=== PATIENT | male | born 1940 | race Caucasian/White ===

== ENCOUNTER → 2016-06-20 | Outpatient (CLI) | payer OTHER ==
[~2016-06-20] MED LIST: ALBINS/ INH; ALBUAER INH; ASPCH81X PO; ATOR-24 PO; ATVUNK; EPP3/2 IM; FISHOIL PO; FLUT1INH INH; HYDC25 PO; IRON PO; LISI-461 PO; LORA-741 PO; PRAV20TA PO; PRLSR20 PO; SERT1TAB71 PO
--- NOTE | 2016-06-20 10:54 | DIAGNOSTIC IMAGING REPORT ---
CHEST 2 VIEWS ROUTINE CLINICAL HISTORY: SOB//WHEEZE dyspnea COMPARISON STUDY: 02/16/2014 FINDINGS: The bones soft tissues and hemidiaphragms are normal. The cardiomediastinal silhouette is normal. The lungs are clear. The pulmonary vasculature is normal. IMPRESSION: Negative chest. Electronically signed by: Kulwinder Schmid M.D. 06/20/2016 10:53 AM Dictated Date/Time: 06/20/2016 10:52 AM
== END | disposition home or self-care (01) ==
LOC: C.RADPV 10:39
PROVIDERS: ATTEND Nurse Practitioner
DX: R06.02 Shortness of breath (principal); R06.2 Wheezing

== ENCOUNTER → 2016-08-21 | Day surgery (SDC) | payer OTHER ==
[2016-08-14 11:52] VITALS: Ht 182.9 cm; Wt 84.1 kg
[~2016-08-21] VITALS: Ht 182.9 cm; Wt 84.1 kg
[~2016-08-21] MED LIST changes: -ATVUNK; -EPP3/2 IM; +LIDOCAINE HCL 2% 2 ML VIAL (20MG/ML) ONE; +MIDAZOLAM HCL 1 MG/ML 2ML VIAL ONE; +ONDANSETRON INJ 2 MG/ML 2 ML VIAL ONE; -PRAV20TA PO; +PROPOFOL IV EMULSION 10 MG/ML 20 ML VIAL IV ONE; -SERT1TAB71 PO; +SODIUM CHLORIDE 0.9% 500ML 500 ML IV ONE
--- NOTE | 2016-08-21 10:15 | Endo History and Physical ---
History & Physical Date of Service: Aug 21, 2016. Chief Complaint: reflux,abdominal distention Referring Physician: Dr. Tucker History of Present Illness 75 yo CM who presents for EGD secondary to GERD and abdominal distention. Past Surgical History Hx Cardiac Surgery: No Hx Internal Defibrillator: No Hx Pacemaker: No Hx Abdominal Surgery: Yes (BILATERAL INGUINAL HERNIA REPAIR, UMBILICAL HERNIA REPAIR) Hx of Implantable Prosthesis: No Hx Post-Op Nausea and Vomiting: No Hx Cancer Surgery: No Hx Thoracic Surgery: No Hx Orthopedic: Yes (LT RCR, RT KNEE SURGERY) Hx Urinary Tract Surgery: No Family History Colon CA Social History Smoking Status: Former Smoker Hx Substance Use: Yes (MARIJUANA 1X/MONTH) Hx Alcohol Use: Yes (1 DRINK/DAY) Allergies Coded Allergies: NO KNOWN DRUG ALLERGIES (Verified Allergy, Unknown, ., 08/14/16) Uncoded Allergies: "OINTMENT ON ANESTHESIA TUBE" (Allergy, Unknown, SWELLING, 08/14/16) Current Medications Reported Home Medications Medications Dose Route/Sig Max Daily Dose Days Date Category Ativan (Lorazepam) 0.5 Mg Tab 0.5 Mg PO TID PRN 08/14/16 Reported Proventil 0.083% 2.5MG/3ML (Albuterol Sulf) 2.5 Mg/3 Ml Nebu 2.5 Mg INH QID PRN 08/14/16 Reported Proventil Hfa (Albuterol Sulfate) 108 Mcg/Act Aer 1 Puff INH Q4H PRN 08/14/16 Reported Breo Ellipta (Fluticasone Furoate-Vilanterol) 1 Inh Inh 1 Puff INH QAM 08/14/16 Reported [Iron] 65 Mg PO QAM 08/14/16 Reported Lipitor (Atorvastatin Calcium) 40 Mg Tab 40 Mg PO QAM 08/14/16 Reported [place]-3 (Fish Oil) Oil 1 Cap PO QAM 01/16/12 Reported Aspirin Chewable (Aspirin) 81 Mg Chew 81 Mg PO QAM 01/16/12 Reported Prilosec (Omeprazole) 20 Mg Capcr 20 Mg PO QAM 07/23/10 Reported Hctz * (Hydrochlorothiazide) 25 Mg Tab 25 Mg PO QAM 12/26/06 Reported Zestril (Lisinopril) 10 Mg Tab 10 Mg PO QAM 12/26/06 Reported Vital Signs Weight (Kilograms): 84.09 Height (Feet): 6 Height (Inches): 0 Date Time Temp Pulse Resp B/P Pulse Ox O2 Delivery O2 Flow Rate FiO2 08/21/16 09:45 36.5 85 18 148/85 99 Room Air Physical Exam General Appearance: WD/WN, no apparent distress Respiratory/Chest: Auscultation: breath sounds normal Cardiovascular: Heart Auscultation: RRR Abdomen: Bowel Sounds: normal Inspection & Palpation: soft, non-distended, no tenderness, guarding & rebound Assessment and Plan Assessment: 75 yo CM who presents for EGD secondary to GERD and abdominal distention. Plan: Proceed with EGD
--- NOTE | 2016-08-21 10:24 | Discharge Instructions ---
Endoscopy Patient Instructions Date / Procedure(s) Performed Aug 21, 2016. EGD Allergy Information Coded Allergies: NO KNOWN DRUG ALLERGIES (Verified Allergy, Unknown, ., 08/14/16) Uncoded Allergies: "OINTMENT ON ANESTHESIA TUBE" (Allergy, Unknown, SWELLING, 08/14/16) Discharge Date / Findings Aug 21, 2016. Gastritis s/p biopsies Hiatal hernia Brushings for Angeli esophagitis Medication Instructions Stopped Medication(s): took asa yesterday OK to resume all medications today as prescribed Reported Home Medications Medications Dose Route/Sig Max Daily Dose Days Date Category Ativan (Lorazepam) 0.5 Mg Tab 0.5 Mg PO TID PRN 08/14/16 Reported Proventil 0.083% 2.5MG/3ML (Albuterol Sulf) 2.5 Mg/3 Ml Nebu 2.5 Mg INH QID PRN 08/14/16 Reported Proventil Hfa (Albuterol Sulfate) 108 Mcg/Act Aer 1 Puff INH Q4H PRN 08/14/16 Reported Breo Ellipta (Fluticasone Furoate-Vilanterol) 1 Inh Inh 1 Puff INH QAM 08/14/16 Reported [Iron] 65 Mg PO QAM 08/14/16 Reported Lipitor (Atorvastatin Calcium) 40 Mg Tab 40 Mg PO QAM 08/14/16 Reported [place]-3 (Fish Oil) Oil 1 Cap PO QAM 01/16/12 Reported Aspirin Chewable (Aspirin) 81 Mg Chew 81 Mg PO QAM 01/16/12 Reported Prilosec (Omeprazole) 20 Mg Capcr 20 Mg PO QAM 07/23/10 Reported Hctz * (Hydrochlorothiazide) 25 Mg Tab 25 Mg PO QAM 12/26/06 Reported Zestril (Lisinopril) 10 Mg Tab 10 Mg PO QAM 12/26/06 Reported Provider Instructions Activity Restrictions - No exercising or heavy lifting for 24 hours. - Do not drink alcohol the day of the procedure. - Do not drive a car or operate machinery until the day after the procedure. - Do not make any important decisions or sign important papers in 24 hours after the procedure. Following Day: - Return to full activity which may include returning to work/school. Diet Start your diet with liquids and light foods (jello, soup, juice, toast). Then eat your usual diet if not nauseated. Treatment For Common After Affects For mild abdominal pain, bloating, or excessive gas: - Rest - Eat lightly - Lie on right side Follow-Up Information Follow-up with Dr. Tucker as scheduled Anesthesia Information What You Should Know You have had a procedure that required some medicine to reduce anxiety and discomfort. This treatment is called moderate sedation. After receiving the treatment, you may be sleepy, but you will be able to breathe on your own. The effects of the treatment may last for several hours. Follow these instructions along with Activity/Diet recommendations noted above: * Do NOT do anything where dizziness or clumsiness would be dangerous. * Rest quietly at home today, then you can be up and about tomorrow. * Have a responsible person stay with you the rest of today. * You may have had an I.V. today. If so, you may take the dressing off later today. Recommendations Call your doctor if: * Trouble breathing * Continuous vomiting for more than 24 hours * Temperature above 101 degrees * Severe abdominal pain or bloating * Pain not relieved by pain medicine ordered * There is increased drainage or redness from any incision * A large amount of rectal bleeding greater than 2-3 tablespoons. (If you had a polyp/s removed or have hemorrhoids, a small amount of blood - from the rectum is to be expected.) * You have any unanswered questions or concerns. IN THE EVENT OF A SERIOUS EMERGENCY, GO TO THE NEAREST EMERGENCY ROOM Your discharge instructions were prepared by provider Shaun Munoz. Patient Instructions Signature Page Lul Dalal Patient (or Guardian) Signature/Date: I have read and understand the instructions given to me by my caregivers. Caregiver/RN/Doctor Signature/Date: The above-named patient and/or guardian has received patient instructions on this date. + Original Patient Signature Page (only) stays with chart. Please make copy for patient.
--- NOTE | 2016-08-21 10:29 | GI REPORT ---
Procedure Date: 08/21/2016 10:01 AM Procedure: Upper GI endoscopy Indications: Gastro-esophageal reflux disease Medicines: Monitored Anesthesia Care Complications: No immediate complications. Estimated Blood Loss: Estimated blood loss: none. Procedure: Pre-Anesthesia Assessment: - Prior to the procedure, a History and Physical was performed, and patient medications and allergies were reviewed. The patient's tolerance of previous anesthesia was also reviewed. The risks and benefits of the procedure and the sedation options and risks were discussed with the patient. All questions were answered, and informed consent was obtained. Prior Anticoagulants: The patient has taken aspirin, last dose was 1 day prior to procedure. ASA Grade Assessment: II - A patient with mild systemic disease. After reviewing the risks and benefits, the patient was deemed in satisfactory condition to undergo the procedure. After obtaining informed consent, the endoscope was passed under direct vision. Throughout the procedure, the patient's blood pressure, pulse, and oxygen saturations were monitored continuously. The Scope was introduced through the mouth, and advanced to the second part of duodenum. The upper GI endoscopy was accomplished without difficulty. The patient tolerated the procedure well. Findings: A single 3 mm plaque was found in the lower third of the esophagus. Cells for cytology were obtained by brushing. Localized mild inflammation characterized by erythema was found in the gastric antrum. Biopsies were taken with a cold forceps for histology. A small hiatus hernia was present. Impression: - A single plaque in the lower third of the esophagus. Cells for cytology obtained. - Gastritis. Biopsied. - Small hiatus hernia. Recommendation: - Resume previous diet. - Continue present medications. - Await pathology results. - Return to GI clinic as previously scheduled. Shaun Munoz DO 08/21/2016 10:27:54 AM This report has been signed electronically. Note Initiated On: 08/21/2016 10:01 AM I attest to the content of the Intraoperative Record and orders documented therein, exceptions below
--- NOTE | 2016-08-21 11:06 | Anesthesiology Progress Note ---
Anesthesia Post Op Note Date & Time Aug 21, 2016 at 11:05 Vital Signs Pain Intensity: 1 Vital Signs Past 12 Hours Date Time Temp Pulse Resp B/P Pulse Ox O2 Delivery O2 Flow Rate FiO2 08/21/16 11:02 70 18 110/83 94 Room Air 08/21/16 10:28 70 18 99/67 96 Room Air 08/21/16 09:45 36.5 85 18 148/85 99 Room Air Notes Mental Status: alert / awake / arousable, participated in evaluation Pt Amnestic to Procedure: Yes Nausea / Vomiting: adequately controlled Pain: adequately controlled Airway Patency, RR, SpO2: stable & adequate BP & HR: stable & adequate Hydration State: stable & adequate Anesthetic Complications: no major complications apparent
[2016-08-21 11:15] VITALS: BP 112/80; PULSE 75; O2SAT 94
== END | disposition home or self-care (01) ==
LOC: C.GI 09:19
PROVIDERS: ATTEND Internal Medicine
DX: K21.9 Gastro-esophageal reflux disease without esophagitis (principal); K22.9 Disease of esophagus, unspecified; K29.70 Gastritis, unspecified, without bleeding; K44.9 Diaphragmatic hernia without obstruction or gangrene; J44.9 Chronic obstructive pulmonary disease, unspecified; I10 Essential (primary) hypertension; F12.90 Cannabis use, unspecified, uncomplicated; Z79.899 Other long term (current) drug therapy; Z68.25 Body mass index [BMI] 25.0-25.9, adult; Z98.890 Other specified postprocedural states; Z87.891 Personal history of nicotine dependence; Z80.0 Family history of malignant neoplasm of digestive organs

== ENCOUNTER → 2016-08-23 | Outpatient (CLI) | payer OTHER ==
[~2016-08-23] MED LIST changes: -LIDOCAINE HCL 2% 2 ML VIAL (20MG/ML) ONE; -MIDAZOLAM HCL 1 MG/ML 2ML VIAL ONE; -ONDANSETRON INJ 2 MG/ML 2 ML VIAL ONE; -PROPOFOL IV EMULSION 10 MG/ML 20 ML VIAL IV ONE; -SODIUM CHLORIDE 0.9% 500ML 500 ML IV ONE
[2016-09-02 12:48] LABS: ASPERGILLUS FUMIGATUS NEGATIVE (NEGATIVE); M. FAENI (S. RECTIVIRGULA) NEGATIVE (NEGATIVE); PIGEON SERUM NEGATIVE (NEGATIVE); SACCHAROMONOSPORA VIRIDIS AB NEGATIVE (NEGATIVE); THERMOACTINOMYCES CANDIDUS NEGATIVE (NEGATIVE); THERMOACTINOMYCES VULGARIS NEGATIVE (NEGATIVE)
== END | disposition home or self-care (01) ==
LOC: C.LAB1850 14:16
PROVIDERS: ATTEND Internal Medicine Pulmonary Disease
DX: J45.909 Unspecified asthma, uncomplicated (principal)

== ENCOUNTER → 2016-09-18 | Outpatient (CLI) | payer OTHER ==
--- NOTE | 2016-09-18 13:52 | DIAGNOSTIC IMAGING REPORT ---
RIGHT HAND MIN 3 VIEWS ROUTINE CLINICAL HISTORY: HAND PAIN R Right pain COMPARISON: None DISCUSSION: Moderate to significant degenerative change first carpometacarpal joint as well as radial ulnar articulation. Erosive changes involving the distal aspects of the second and third metacarpals. No significant periarticular osteopenia. There is no evidence for soft tissue swelling. 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 09/18/2016 1:51 PM Dictated Date/Time: 09/18/2016 1:50 PM
[2016-09-18 17:42] LABS: BASO % 0.5 %; BASO ABS # 0.04 K/uL (0-0.2); COMPLETE YES; EOS % 1.6 %; HEMATOCRIT 41.1 % (42-52); IG% 0.1 %; LYMPH ABS # 1.43 K/uL (1.2-3.4); MEAN CELL VOLUME 92.4 fL (80-100); MEAN CORPUSCULAR HEMOGLOBIN 31.7 pg (25-34); MEAN CORPUSCULAR HGB CONC 34.3 g/dl (32-36); MEAN PLATELET VOLUME 10.8 fL (7.4-10.4); MONO % 10.2 %; NEUT % 68.6 %; PLATELET COUNT 202 K/uL (130-400); RED BLOOD COUNT 4.45 M/uL (4.7-6.1); WHITE BLOOD COUNT 7.52 K/uL (4.8-10.8)
[2016-09-18 17:46] LABS: ALKALINE PHOSPHATASE 75 U/L (45-117); ALT/SGPT 17 U/L (12-78); AST/SGOT 16 U/L (15-37); BLOOD UREA NITROGEN 16 mg/dl (7-18); BUN/CREATININE RATIO 23.1 (10-20); CALCIUM 8.6 mg/dl (8.5-10.1); CARBON DIOXIDE 29 mmol/L (21-32); CHLORIDE 105 mmol/L (98-107); GLUCOSE 89 mg/dl (70-99); POTASSIUM 3.3 mmol/L (3.5-5.1); SODIUM 141 mmol/L (136-145); URIC ACID 5.6 mg/dl (2.6-7.2)
== END | disposition home or self-care (01) ==
LOC: C.RADPV 13:24
PROVIDERS: ATTEND Family Medicine
DX: M79.641 Pain in right hand (principal)

== ENCOUNTER → 2016-10-25 | Outpatient (CLI) | payer OTHER ==
[2016-10-25 13:08] LABS: CHOLESTEROL/HDL RATIO 1.9
== END | disposition home or self-care (01) ==
LOC: C.LABPVFM 08:40
PROVIDERS: ATTEND Family Medicine
DX: I10 Essential (primary) hypertension (principal); E78.00 Pure hypercholesterolemia, unspecified; J44.9 Chronic obstructive pulmonary disease, unspecified; F41.8 Other specified anxiety disorders; K21.9 Gastro-esophageal reflux disease without esophagitis; N52.9 Male erectile dysfunction, unspecified

== ENCOUNTER → 2017-05-05 | Outpatient (CLI) | payer OTHER ==
[2017-05-05 13:05] LABS: ALBUMIN 3.3 gm/dl (3.4-5.0); ALT/SGPT 19 U/L (12-78); BLOOD UREA NITROGEN 24 mg/dl (7-18); CALCIUM 8.7 mg/dl (8.5-10.1); CARBON DIOXIDE 31 mmol/L (21-32); CHOLESTEROL 160 mg/dl (0-200); CREATININE 0.68 mg/dl (0.60-1.40); GLUCOSE 86 mg/dl (70-99); POTASSIUM 3.4 mmol/L (3.5-5.1); SODIUM 140 mmol/L (136-145)
[2017-05-05 13:09] LABS: ALKALINE PHOSPHATASE 65 U/L (45-117); AST/SGOT 15 U/L (15-37); LDL CHOLESTEROL CALCULATED 61 mg/dl
== END | disposition home or self-care (01) ==
LOC: C.LABPVFM 08:25
PROVIDERS: ATTEND Family Medicine
DX: I10 Essential (primary) hypertension (principal); E78.00 Pure hypercholesterolemia, unspecified; J44.9 Chronic obstructive pulmonary disease, unspecified; F41.8 Other specified anxiety disorders; K21.9 Gastro-esophageal reflux disease without esophagitis; E87.6 Hypokalemia

== ENCOUNTER → 2017-11-14 | Outpatient (CLI) | payer OTHER ==
--- NOTE | 2017-11-14 08:55 | DIAGNOSTIC IMAGING REPORT ---
ULTRASOUND EXAM AAA SCREEN CLINICAL HISTORY: 76 years-old Male presenting with Z13.6 Screening for AAA (abdominal aortic aneurysm)[id number]. TECHNIQUE: Real-time grayscale and color and spectral Doppler ultrasound imaging of the abdominal aorta and iliac arteries was performed. COMPARISON: CT from 03/15/2010. FINDINGS: Evaluation limited by bowel gas. Proximal aorta: Patent. Transverse dimension 2.6 x 2.9 cm. Mid aorta: Patent. Transverse dimension 2.5 x 2.6 cm. Distal aorta: Patent. Transverse dimension 2.2 x 2.6 cm. Right iliac artery: Patent. Transverse dimension 1.5 x 1.7 cm. Left iliac artery: Patent. Transverse dimension 1.6 x 2.0 cm. IMPRESSION: 1. No evidence of abdominal aortic aneurysm. Electronically signed by: Bonilla Vazquez M.D. 11/14/2017 8:54 AM Dictated Date/Time: 11/14/2017 8:53 AM
== END | disposition home or self-care (01) ==
LOC: C.ULTR 08:21
PROVIDERS: ATTEND Family Medicine
DX: Z13.6 Encounter for screening for cardiovascular disorders (principal)

== ENCOUNTER 2023-12-25 16:39 | Inpatient (IN) ==
--- NOTE | 2023-12-25 16:47 | ED Triage Note ---
Date of Service December 25, 2023 Provider in Triage Author: Everette Pulliam History of Present Illness This patient was briefly evaluated while in triage. An abbreviated physical exam was performed. This patient is a 83-year-old Male who presents to the ED for evaluation fatigue, joint pain over the last few days acute fever and vomiting today - T102 concern for Lyme, hx of anaplasmosis 2 years ago Physical Exam GENERAL: mild distress, tachycardic and febrile, but nontoxic CARDIOVASCULAR: RRR RESPIRATORY: CTA ABDOMEN: BS x 4. Nontender to palpation. Initial orders for labs and / or imaging were placed and patient was placed in the waiting area until a bed is available. Please see further documentation for the full ED course.
[2023-12-25] MEDS: KETOROLAC TROMETHAMINE 15 MG/ML VIAL IV STA (16:54)
[2023-12-25] MEDS: ONDANSETRON INJ 2 MG/ML 2 ML VIAL IV STA ×2 (16:54→18:22)
[2023-12-25] MEDS: SODIUM CHLORIDE 0.9% 1,000 ML IV SCH ×2 (16:55→23:05)
[2023-12-25 17:12] LABS: Appearance Urine Clear (Clear); Bilirubin Urine Negative (Negative); Blood Urine Negative (Negative); Color Urine Yellow; Glucose Urine UA Negative (Negative); Ketones Urine Negative (Negative); Leukocyte Esterase Urine Negative (Negative); Nitrite Urine Negative (Negative); Protein Urine Negative (Negative); Specific Gravity Urine 1.012 (1.000-1.030); Urobilinogen Urine Negative (Negative); pH Urine 8.5 (4.5-7.5)
[2023-12-25 17:18] LABS: Basophils # (auto) 0.04 K/uL (0.00-0.20); Basophils % (auto) 0.4 %; Eosinophils # (auto) 0.02 K/uL (0.00-0.50); Eosinophils % (auto) 0.2 %; Hematocrit (blood only) 40.8 % (42.0-52.0); Hemoglobin 13.8 g/dl (14.0-18.0); Immature Granulocytes # (auto) 0.04 K/uL (0.01-0.20); Immature Granulocytes % (auto) 0.4 %; Lymphocytes # (auto) 0.71 K/uL (1.20-3.40); Lymphocytes % (auto) 6.4 %; Mean Corpuscular Hemoglobin 31.7 pg (25.0-34.0); Mean Corpuscular Hgb Conc 33.8 g/dL (32.0-36.0); Mean Corpuscular Volume 93.6 fL (80.0-100.0); Mean Platelet Volume 10.1 fL (9.4-12.4); Monocytes # (auto) 0.38 K/uL (0.11-0.59); Monocytes % (auto) 3.4 %; Neutrophils # (auto) 9.96 K/uL (1.40-6.50); Neutrophils % (auto) 89.2 %; Platelet Count 195 K/uL (130-400); RDW Coefficient of Variation 12.8 % (11.5-14.5); RDW Standard Deviation 43.7 fL (36.4-46.3); Red Blood Count 4.36 M/uL (4.70-6.10); White Blood Count 11.15 K/ul (4.8-10.8)
--- NOTE | 2023-12-25 17:31 | Emergency Department Note ---
Impression & Plan Pneumonia ADMIT ED Provider Note HPI: History obtained from patient. The patient is a 83-year-old gentleman who presents the emergency department with a chief complaint of fever, nausea and vomiting. Patient states that he began to have some generalized weakness as well as issues with nausea and vomiting and mostly dry heaves that been ongoing since about 1 PM. Patient states yesterday he also did feel somewhat weak but did not have any GI symptoms. Patient denies any abdominal pain, on arrival here to the ED the patient is noted to be febrile at 38.2, he is tachycardic at 112 and hypertensive at 170/85. He states that he has had a dry cough recently. Patient saturating well on room air on arrival. On my initial assessment he is alert and oriented x 3, he does not have any focal deficits. ROS: - Per HPI Differential Diagnosis: Viral upper respiratory infection to include COVID-19, influenza A, pneumonia, sepsis, urinary tract infection, small bowel obstruction, acute cholecystitis, acute appendicitis, perforated viscus, diverticulitis flare, amongst other potential pathologies. *Outpatient medications and allergy history reviewed. PE: General: Alert HEENT: Normocephalic, trachea midline Eyes: Extraocular eye movement is intact, no scleral erythema Pulmonary: Clear to auscultation bilaterally, no wheezing Cardio: Tachycardic rate with regular rhythm GI: Abdomen is soft to palpation : No suprapubic tenderness MSK: No evidence of trauma or malformation of the extremities, no edema Skin: No evidence of rash Neuro: Alert, no focal deficits Psychiatric: Cooperative INDEPENDENT INTERPRETATIONS: monitoring analyst: (As interpreted by myself): - An order was placed for continuous cardiac monitoring - Patient was noted to be in sinus rhythm with a rate of 108 EKG: (As interpreted by myself): Rate: 115 Rhythm: Junctional rhythm Intervals: QTc 644 ms, otherwise within normal limits ST changes: No ST elevation Time: 1706 Chest x-ray: (As interpreted by myself): Right lower lobe pneumonia Interventions provided in ED: -IV cefepime, IV azithromycin, IV fluid bolus Medical Decision Making: IV was established and lab work obtained, patient was placed on teletypesetter monitor. Lab work shows a leukocytosis of 11.15, hemoglobin is stable at 13.8, platelet count is normal, CMP shows no critical abnormalities, procalcitonin is low, urinalysis does not show infection, viral panel testing is negative. CT imaging of the abdomen pelvis was obtained that shows evidence of right lower lobe pneumonia, there is no evidence of any small bowel obstruction, otherwise no acute surgical process is noted within the abdomen and pelvis. There is a left lower quadrant mass possibly consistent with a lipoma or liposarcoma noted and recommendation is made by the interpreting radiologist for repeat imaging within 6 months or so of which the patient was informed. Patient did have hypoxia here in the ED to 88%, he responded well to nasal cannula oxygen. Given the patient's fever and hypoxia, I do feel he required admission. Blood cultures were drawn and the patient was treated with IV cefepime and IV azithromycin. Case was discussed with the on-call admitting hospitalist for [facility], Dr. Justice, the patient was placed for admission in stable condition. Consultants/Discussions held with other healthcare providers: -Hospitalist, Dr. Justice Disposition discussion held by myself with: -Patient Critical care time: 45 minutes -Stabilization patient with hypoxia to 88% on room air requiring supplemental oxygen for correction, time spent at the bedside, initiation of fluids and broad-spectrum antibiotics over concern for sepsis. Interpretation of diagnostic studies, discussion with other physicians and arrangement of admission. Diagnosis: 1. Sepsis secondary to pneumonia, acute, with hypoxia 2. Fever, acute 3. Leukocytosis, acute 4. Nausea and vomiting, acute 5. Nonspecific mass within the left lower quadrant of the abdomen, acute Disposition: Admission Kulwinder Bloom DO Emergency Medicine Past Med/Surg History Problem List (Updated 12/25/23 @ 23:10 by Kulwinder Bloom DO) Pneumonia (Acute) Pneumonia Marijuana smoker Chronic cough Upper airway cough syndrome Allergic rhinitis with postnasal drip Ex-smoker Asthma-COPD overlap syndrome Encounter for pre-operative examination Hypertension (Chronic) GERD (gastroesophageal reflux disease) (Chronic) Allergic reaction to bee sting (Acute) Hyperlipidemia COPD (chronic obstructive pulmonary disease) Hypoglycemia Lower resp. tract infection Retroperitoneal mass Advanced COPD Asthma Depression with anxiety Hypertension Medical History Anxiety COPD (chronic obstructive pulmonary disease) GERD (gastroesophageal reflux disease) History of colon polyps HTN (hypertension) Hypercholesterolemia Surgical History H/O colonoscopy (~2017) History of bilateral inguinal hernia repair History of knee surgery Rt History of rotator cuff surgery Rt S/P excision of lipoma S/P repair of ventral hernia (07/30/10) Laparoscopic ventral hernia repair Dr. Sierra Family History Mother Family history of CABG Dissecting aortic aneurysm (any part), thoracic Heart disease Cardiac disorder Hypertension Father Prostate cancer Hypertension Stroke Aunt Breast cancer Uncle Colorectal cancer Uncle Myocardial infarction Daughter Colorectal cancer Other No family history of adverse response to anesthesia Denies family history of Ovarian cancer Social History Smoking Status: Never smoker Tobacco Type: Cigarettes packs per day: 1; Second Hand Exposure: No; Do You Dip or Chew Tobacco: No; Hx Alcohol Use: Yes Alcohol type: wine Alcohol Intake Frequency: 4 or More x per/Week Hx Substance Use: Yes Last Used Substance Other:: 6 mo ago Substance Use Type Other:: 6 MON AGO Preferred Language: Nepali Communication Ability: Effective Social Media Community Manager Required: No Beliefs That Will Affect Care: None marital status: Current Living Situation: Spouse current occupational status: retired How many Children do You have: 3 Feels Safe at Home: Yes Diet: vegan caffeine: Yes (coffee ) during the past year weight has: remained stable Dental Care, Regularly: Yes Physical Activity Frequency: Daily Seatbelt Use: always Sunscreen Use: No Assistive Devices: Glasses Allergies Allergies Allergy/AdvReac Type Severity Reaction Status Date / Time venom-honey bee Allergy Severe Swelling Verified 12/25/23 18:16 of Lip/Tongue/Throat methocarbamol Allergy Unknown Unknown Verified 12/25/23 18:16 Home Meds Home Medications Medication Instructions Recorded Confirmed albuterol sulfate 90 mcg/actuation 2 puff inhalation Q6H PRN Wheezing 07/29/18 12/25/23 aerosol inhaler (Ventolin HFA) famotidine 20 mg tablet (Pepcid) 20 mg PO BID 05/24/21 12/25/23 Vegan Vitamin 1 dose PO QAM 11/22/21 12/25/23 lisinopril 10 mg tablet 10 mg PO QAM 11/22/21 12/25/23 lorazepam 0.5 mg tablet (Ativan) 0.5 mg PO DAILY PRN Anxiety 11/22/21 12/25/23 potassium chloride 10 mEq 10 meq PO QAM 11/22/21 12/25/23 tablet,extended release hydrochlorothiazide 12.5 mg capsule 12.5 mg PO QAM 12/25/23 12/25/23 krill oil 500 mg capsule 500 mg PO QAM 12/25/23 12/25/23 rosuvastatin 10 mg tablet 10 mg PO QAM 12/25/23 12/25/23 Results & Data (ED) Vital Signs Vital Signs - 24 hr 12/25/23 16:45 12/25/23 17:52 12/25/23 19:29 Temperature 38.2 C H Temperature Source Oral Pulse Rate 112 H 104 H 105 H Pulse Rate [Apical] Respiratory Rate 20 Respiratory Effort / Characteristics Non-Labored Spontaneous Respiratory Depth Normal Respiratory Pattern Regular Blood Pressure 170/85 H Blood Pressure [Right Arm] Blood Pressure Mean 113 Blood Pressure Mean [Right Arm] Pulse Oximetry 92 88 L Oxygen Delivery Method Room Air Room Air Oxygen Flow Rate Sepsis Recent Fever Within 48 Hours Yes Sepsis New/Unexplained Change in Mental Status No Sepsis Action Taken by Nursing Adv Provider Notified 12/25/23 19:29 12/25/23 19:56 Temperature Temperature Source Pulse Rate Pulse Rate [Apical] 100 H Respiratory Rate 30 H Respiratory Effort / Characteristics Non-Labored Spontaneous Respiratory Depth Normal Respiratory Pattern Regular Blood Pressure Blood Pressure [Right Arm] 131/79 Blood Pressure Mean Blood Pressure Mean [Right Arm] 96 Pulse Oximetry 95 95 Oxygen Delivery Method Nasal Cannula Nasal Cannula Oxygen Flow Rate 2 2 Sepsis Recent Fever Within 48 Hours Sepsis New/Unexplained Change in Mental Status Sepsis Action Taken by Nursing Laboratory Data 12/25/23 16:56 12/25/23 16:56 Lab Results 12/25/23 12/25/23 Range/Units 16:56 17:21 WBC 11.15 H (4.8-10.8) K/ul RBC 4.36 L (4.70-6.10) M/uL Hgb 13.8 L (14.0-18.0) g/dl Hct 40.8 L (42.0-52.0) % MCV 93.6 (80.0-100.0) fL MCH 31.7 (25.0-34.0) pg MCHC 33.8 (32.0-36.0) g/dL RDW Std Deviation 43.7 (36.4-46.3) fL RDW Coeff of [place] 12.8 (11.5-14.5) % Plt Count 195 (130-400) K/uL MPV 10.1 (9.4-12.4) fL Immature Gran % (Auto) 0.4 % Neut % (Auto) 89.2 % Lymph % (Auto) 6.4 % [place] % (Auto) 3.4 % Eos % (Auto) 0.2 % Baso % (Auto) 0.4 % Neut # (Auto) 9.96 H (1.40-6.50) K/uL Lymph # (Auto) 0.71 L (1.20-3.40) K/uL [place] # (Auto) 0.38 (0.11-0.59) K/uL Eos # (Auto) 0.02 (0.00-0.50) K/uL Baso # (Auto) 0.04 (0.00-0.20) K/uL Immature Gran # (Auto) 0.04 (0.01-0.20) K/uL Sodium 135 L (136-145) mmol/L Potassium 3.4 L (3.5-5.1) mmol/L Chloride 98 (98-107) mmol/L Carbon Dioxide 29 (21-32) mmol/L Anion Gap 8 (3-11) BUN 11 (6-23) mg/dl Creatinine 0.74 (0.6-1.4) mg/dl Est Cr Clr Drug Dosing 76.7 ml/min Est GFR ( Amer) 98.2 ml/min Est GFR (Non-Af Amer) 84.7 ml/min BUN/Creatinine Ratio 14.9 (10-20) Glucose 115 H (70-99(Fasting)) mg/dl Lactate 1.5 (0.4-2.0) mmol/L Calcium 9.3 (8.6-10.3) mg/dl Total Bilirubin 0.9 (0.2-1.0) mg/dl AST 19 (13-39) U/L ALT 11 (7-52) U/L Alkaline Phosphatase 75 (34-104) U/L Total Protein 7.5 (6.0-8.3) gm/dl Albumin 4.4 (3.4-5.0) gm/dl Globulin 3.1 (2.5-4.0) gm/dl Albumin/Globulin Ratio 1.4 (0.9-2) Procalcitonin < 0.02 (0-0.5) ng/ml Urine Color Yellow Urine Appearance Clear (Clear) Urine pH 8.5 H (4.5-7.5) Ur Specific [place] 1.012 (1.000-1.030) Urine Protein Negative (Negative) Urine Glucose (UA) Negative (Negative) Urine Ketones Negative (Negative) Urine Blood Negative (Negative) Urine Nitrite Negative (Negative) Urine Bilirubin Negative (Negative) Urine Urobilinogen Negative (Negative) Ur Leukocyte Esterase Negative (Negative) Adenovirus (PCR) Not Detected (NotDetected) Anaplasma Smear See Comment Babesia Smear See Comment B. pertussis DNA (PCR) Not Detected (NotDetected) B.parapertussis DNA PCR Not Detected (NotDetected) Lyme Disease Screen Negative (Negative) C. pneumoniae DNA (PCR) Not Detected (NotDetected) Coronavirus OC43 (PCR) Not Detected (NotDetected) Coronavirus HKU1 (PCR) Not Detected (NotDetected) Coronavirus 229E (PCR) Not Detected (NotDetected) SARS-CoV-2 (PCR) Not Detected (NotDetected) Coronavirus NL63 (PCR) Not Detected (NotDetected) Human Metapneumovir PCR Not Detected (NotDetected) Influenza Type A (PCR) Not Detected (NotDetected) Influenza Type B (PCR) Not Detected (NotDetected) M. pneumoniae (PCR) Not Detected (NotDetected) Parainfluenza 1 (PCR) Not Detected (NotDetected) Parainfluenza 2 (PCR) Not Detected (NotDetected) Parainfluenza 3 (PCR) Not Detected (NotDetected) Parainfluenza 4 (PCR) Not Detected (NotDetected) RSV (PCR) Not Detected (NotDetected) Entero/Rhino (PCR) Not Detected (NotDetected) Administered Medications Sodium Chloride (Nss) 1,000 mls @ 125 mls/hr IV .Q8H NEETU Stop: 12/26/23 14:07 Last Admin: 12/25/23 23:05 Dose: 125 mls/hr Documented By: DN Discontinued Medications Sodium Chloride (Nss) 1,000 mls @ 999 mls/hr IV .Q1H1M NEETU Stop: 12/25/23 17:48 Last Infusion: 12/25/23 17:23 Dose: Infused Documented By: Admin: 12/25/23 16:55 Dose: 999 mls/hr Documented By: ARS Sodium Chloride (Nss) 1,000 mls @ 999 mls/hr IV .Q1H1M ONE Stop: 12/25/23 18:29 Last Infusion: 12/25/23 19:11 Dose: Infused Documented By: Admin: 12/25/23 17:55 Dose: 999 mls/hr Documented By: [facility] Sodium Chloride (Nss) 1,000 mls @ 999 mls/hr IV .Q1H1M ONE Stop: 12/25/23 20:25 Last Admin: 12/25/23 21:24 Dose: 999 mls/hr Documented By: MED Cefepime HCl (Maxipime) 2,000 mg in 20 mls @ 5 mls/min IV NOW STA; Protocol Stop: 12/25/23 19:29 Last Admin: 12/25/23 19:47 Dose: 5 mls/min Documented By: MED Azithromycin 500 mg/ Dextrose 255 mls @ 125 mls/hr IV NOW ONE Stop: 12/25/23 21:28 Last Infusion: 12/25/23 22:49 Dose: Infused Documented By: Admin: 12/25/23 19:54 Dose: 125 mls/hr Documented By: MED Acetaminophen (Ofirmev) 1,000 mg in 100 mls @ 400 mls/hr IV NOW STA Stop: 12/25/23 20:59 Last Admin: 12/25/23 21:10 Dose: Not Given Documented By: MED Promethazine HCl (Phenergan) 12.5 mg in 50.5 mls @ 202 mls/hr IV NOW STA Stop: 12/25/23 21:10 Last Admin: 12/25/23 21:29 Dose: Not Given Documented By: MED Fosaprepitant 115 mg/ Sodium (Chloride) 115 mls @ 450 mls/hr IV ONE ONE Stop: 12/25/23 21:45 Last Admin: 12/25/23 23:01 Dose: 450 mls/hr Documented By: DOMINIC Ioversol (Optiray 320 100ml) 94 ml IV ONCE ONE Stop: 12/25/23 18:39 Last Admin: 12/25/23 18:38 Dose: 94 ml Documented By: GALO Ketorolac Tromethamine (Ketorolac Tromethamine 15 Mg/Ml Vial) 15 mg IV NOW STA Stop: 12/25/23 16:48 Last Admin: 12/25/23 16:54 Dose: 15 mg Documented By: ENMA Ketorolac Tromethamine (Ketorolac Tromethamine 15 Mg/Ml Vial) 15 mg IV NOW ONE Stop: 12/25/23 20:57 Last Admin: 12/25/23 21:22 Dose: 15 mg Documented By: CHRISTOPHER Ondansetron HCl (Ondansetron Inj 2 Mg/Ml 2 Ml Vial) 4 mg IV NOW STA Stop: 12/25/23 16:48 Last Admin: 12/25/23 16:54 Dose: 4 mg Documented By: ARS Ondansetron HCl (Ondansetron Inj 2 Mg/Ml 2 Ml Vial) 4 mg IV NOW STA Stop: 12/25/23 18:03 Last Admin: 12/25/23 18:22 Dose: 4 mg Documented By: [facility] Imaging Data Radiologist's Impression: Abdomen/Pelvis CT 12/25/23 17:28 CT OF THE ABDOMEN AND PELVIS WITH CONTRAST CLINICAL HISTORY: Nausea, vomiting and fever. COMPARISON STUDY: Abdominal aortic ultrasound November 14, [address] of the abdomen and pelvis May 16, 2021. TECHNIQUE: Following IV administration of 94 mL of Optiray, axial images of the abdomen and pelvis were obtained from the lung bases to the proximal femurs. Images were reviewed in the axial, sagittal, and coronal planes. IV contrast was administered without complication. Automated exposure control was utilized for the study. A dose lowering technique was utilized adhering to the principles of ALARA. CT DOSE: 877.47 mGy.cm FINDINGS: Moderate alveolar opacities within the right lower lobe are partially imaged. No pneumatosis, free air or portal venous gas is present. Liver, spleen, adrenal glands, right kidney and pancreas are unremarkable. There is no biliary or pancreatic ductal dilatation. There is no hydronephrosis. 3.5 cm water attenuation left lower pole renal lesion represents a cyst. 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 Right common iliac artery measures 2 cm in caliber. The left measures 1.9 cm. There is no evidence for a bowel obstruction. The appendix is normal. There are postoperative findings suggestive of bilateral inguinal hernia repairs as well as a left-sided spigelian hernia repair. A predominantly fatty left lower abdominal focus with mass effect measures 16 x 10 x 6.2 cm. This contains wispy areas of increased attenuation. No solid enhancing component is identified. This displaces adjacent vessels and bowel loops. IMPRESSION: 1. Moderate right lower lobe alveolar opacities, partially imaged on this exam. The findings suggest pneumonia. 2. No bowel obstruction. No bowel wall thickening. 3. Left lower quadrant fatty density with mass effect that measures 16 x 10 x 6.2 cm. This contains wispy areas of increased attenuation without solid enhancing component. This could simply represent fat however given mass effect, other etiologies such as an atypical lipoma or liposarcoma cannot be excluded. A follow-up CT of the abdomen and pelvis in 6 months is recommended. ACT 112: Positive. There are findings on this exam that require communication between the performing entity and the patient following Patient Test Result Information Act ([place] Act 112) guidelines. Electronically signed by: Mark Germain M.D. 12/25/2023 7:09 PM Discharge Plan Visit Data Chief Complaint: Flu Like Symptoms Stated Complaint: FEVER, VOMITING, JOINT PAIN ED Provider: Kulwinder Bloom Discharge Problem: Pneumonia Patient Disposition: Admitted As Inpatient Discharge Problem: Pneumonia Qualifiers: Pneumonia type: due to unspecified organism Laterality: right Lung location: l ower lobe of lung Qualified Code(s): J18.9 - Pneumonia, unspecified organism
[2023-12-25 17:40] LABS: Albumin Globulin Ratio 1.4 (0.9-2); Albumin Level 4.4 gm/dl (3.4-5.0); BUN Creatinine Ratio 14.9 (10-20); Bilirubin,Total 0.9 mg/dl (0.2-1.0); Calcium 9.3 mg/dl (8.6-10.3); Creatinine Clr Calc Pharmacy 76.7 ml/min; Est GFR (African American) 98.2 ml/min; Est GFR (Non-African American) 84.7 ml/min; Globulin 3.1 gm/dl (2.5-4.0); Potassium 3.4 mmol/L (3.5-5.1); Procalcitonin < 0.02 ng/ml (0-0.5); Total Protein 7.5 gm/dl (6.0-8.3)
[2023-12-25] MEDS: SODIUM CHLORIDE 0.9% 1,000 ML IV ONE ×2 (17:55→21:24)
[2023-12-25 18:06] LABS: Lyme Screen Rflx Confirmation Negative (Negative)
[2023-12-25 18:15] LABS: Adenovirus PCR Not Detected (NotDetected); Bordetella parapertussis PCR Not Detected (NotDetected); Bordetella pertussis PCR Not Detected (NotDetected); Chlamydia pneumoniae PCR Not Detected (NotDetected); Coronavirus 229E PCR Not Detected (NotDetected); Coronavirus CoV-2 (COVID19)PCR Not Detected (NotDetected); Coronavirus HKU1 PCR Not Detected (NotDetected); Coronavirus NL63 PCR Not Detected (NotDetected); Coronavirus OC43PCR Not Detected (NotDetected); Human Metapneumovirus PCR Not Detected (NotDetected); Influenza A PCR Not Detected (NotDetected); Influenza B PCR Not Detected (NotDetected); Mycoplasma pneumoniae PCR Not Detected (NotDetected); Parainfluenza Virus 1 PCR Not Detected (NotDetected); Parainfluenza Virus 2 PCR Not Detected (NotDetected); Parainfluenza Virus 3 PCR Not Detected (NotDetected); Parainfluenza Virus 4 PCR Not Detected (NotDetected); Respiratory Syncytial VirusPCR Not Detected (NotDetected); Rhinovirus/Enterovirus PCR Not Detected (NotDetected)
[2023-12-25] MEDS: OPTIRAY 320 100ml IV ONE (18:38)
--- NOTE | 2023-12-25 19:11 | CT Scan Report ---
CT OF THE ABDOMEN AND PELVIS WITH CONTRAST CLINICAL HISTORY: Nausea, vomiting and fever. COMPARISON STUDY: Abdominal aortic ultrasound November 14, [address] of the abdomen and pelvis May 16, 2021. TECHNIQUE: Following IV administration of 94 mL of Optiray, axial images of the abdomen and pelvis we re obtained from the lung bases to the proximal femurs. Images were reviewed in the axial, sagittal, and coronal planes. IV contrast was administered without complication. Automated exposure control wa s utilized for the study. A dose lowering technique was utilized adhering to the principles of ALARA . CT DOSE: 877.47 mGy.cm FINDINGS: Moderate alveolar opacities within the right lower lobe are partially imaged. No pneumatosi s, free air or portal venous gas is present. Liver, spleen, adrenal glands, right kidney and pancreas are unremarkable. There is no biliary or pancreatic ductal dilatation. There is no hydronephrosis. 3 .5 cm water attenuation left lower pole renal lesion represents a cyst. There is mild aneurysmal dila tation of the bilateral common iliac arteries. Right common iliac artery measures 2 cm in caliber. Th e left measures 1.9 cm. There is no evidence for a bowel obstruction. The appendix is normal. There a re postoperative findings suggestive of bilateral inguinal hernia repairs as well as a left-sided spi gelian hernia repair. A predominantly fatty left lower abdominal focus with mass effect measures 16 x 10 x 6.2 cm. This contains wispy areas of increased attenuation. No solid enhancing component is bryson ntified. This displaces adjacent vessels and bowel loops. IMPRESSION: 1. Moderate right lower lobe alveolar opacities, partially imaged on this exam. The findings suggest pneumonia. 2. No bowel obstruction. No bowel wall thickening. 3. Left lower quadrant fatty density with mass effect that measures 16 x 10 x 6.2 cm. This contains w ispy areas of increased attenuation without solid enhancing component. This could simply represent fa t however given mass effect, other etiologies such as an atypical lipoma or liposarcoma cannot be exc luded. A follow-up CT of the abdomen and pelvis in 6 months is recommended. ACT 112: Positive. There are findings on this exam that require communication between the performing entity and the patient following Patient Test Result Information Act ([place] Act 112) guidelines. Electronically signed by: Mark Germain M.D. 12/25/2023 7:09 PM
[2023-12-25] MEDS: CEFEPIME 2,000 MG/20 ML VIAL IV STA (19:47)
[2023-12-25] MEDS: AZITHROMYCIN 500 MG in DEXTROSE 5% 250 ML IV ONE (19:54)
--- NOTE | 2023-12-25 21:06 | History & Physical Report ---
Date of Service December 25, 2023 Assessment & Plan (1) Pneumonia: Plan: 83-year-old male with past medical history significant for hypercholesterolemia, COPD, hypertension, GERD, BPH comes because of flulike symptoms. Apparently patient was doing fine was working outside his house today when suddenly became sick with nausea ,lot of hip pain and was having cough. And developed fevers. Not really able to eat anything today with nausea. No vomiting. No diarrhea or constipation. Micturating okay. Denies any chest pain. In the ER he was hypoxic and requiring 2 L oxygen. Currently denies any headache. No runny nose or sore throat. In the ER he was somewhat tachycardic and spiking temperatures. 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 Possible pneumonia Hypoxia Came with cough fever and nausea and hip pains CT abdomen pelvis showing possible right lower lobe pneumonia Received cefepime and azithromycin in the ER Will continue with zosyn and Doxy CT chest showing right lower looe pneumonia Requiring oxygen Nebs as needed Close monitor Nausea Antiemetics Clears for now Left lower quadrant mass? on ct sacn surgery consulted. Prolonged QT Avoid QT prolonging drugs given dose of iv magnesium Follow repeat EKG History of COPD No obvious wheezing Continue home inhaler Nebs as needed Close monitor Hypertension Currently hypotensive Will hold hydrochlorothiazide and lisinopril Will monitor Diarrhea had few episodes of diarrhea on the floor will follow stool studies. GERD On Pepcid Hyperlipidemia On rosuvastatin DVT prophylaxis Lovenox Disposition Med/telemetry Full code. History of Present Illness Chief Complaint: Flulike symptoms Primary Care Provider: Manuel Cortés DO 83-year-old male with past medical history significant for hypercholesterolemia, COPD, hypertension, GERD, BPH comes because of flulike symptoms. Apparently patient was doing fine was working outside his house today when suddenly became sick with nausea ,lot of hip pain and was having cough. And developed fevers. Not really able to eat anything today with nausea. No vomiting. No diarrhea or constipation. Micturating okay. Denies any chest pain. In the ER he was hypoxic and requiring 2 L oxygen. Currently denies any headache. No runny nose or sore throat. In the ER he was somewhat tachycardic and spiking temperatures. 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 Past medical history. As mentioned above Past surgical history. Colonoscopy. Bilateral cataracts. Bilateral inguinal hernia repair. Social history. . Quit smoking 1967. Smoked 1 pack a day for 12 years. Alcohol once a week. No drug use. Family history. Mother had aortic dissection. Father had stroke. Brain hemorrhage. Sister had has hypertension. Macular degeneration. Allergies Allergy/AdvReac Type Severity Reaction Status Date / Time venom-honey bee Allergy Severe Swelling Verified 12/25/23 18:16 of Lip/Tongue/Throat methocarbamol Allergy Unknown Unknown Verified 12/25/23 18:16 Home Medications Medication Instructions Recorded Confirmed Type albuterol sulfate 90 mcg/actuation 2 puff inhalation Q6H PRN Wheezing 07/29/18 12/25/23 History aerosol inhaler (Ventolin HFA) famotidine 20 mg tablet (Pepcid) 20 mg PO BID 05/24/21 12/25/23 History Vegan Vitamin 1 dose PO QAM 11/22/21 12/25/23 History lisinopril 10 mg tablet 10 mg PO QAM 11/22/21 12/25/23 History lorazepam 0.5 mg tablet (Ativan) 0.5 mg PO DAILY PRN Anxiety 11/22/21 12/25/23 History potassium chloride 10 mEq 10 meq PO QAM 11/22/21 12/25/23 History tablet,extended release hydrochlorothiazide 12.5 mg capsule 12.5 mg PO QAM 12/25/23 12/25/23 History krill oil 500 mg capsule 500 mg PO QAM 12/25/23 12/25/23 History rosuvastatin 10 mg tablet 10 mg PO QAM 12/25/23 12/25/23 History Past Med/Surg History Problem List (Updated 12/26/23 @ 01:11 by Aguila Bates PA-C) Abdominal mass Pneumonia (Acute) Pneumonia Marijuana smoker Chronic cough Upper airway cough syndrome Allergic rhinitis with postnasal drip Ex-smoker Asthma-COPD overlap syndrome Encounter for pre-operative examination Hypertension (Chronic) GERD (gastroesophageal reflux disease) (Chronic) Allergic reaction to bee sting (Acute) Hyperlipidemia COPD (chronic obstructive pulmonary disease) Hypoglycemia Lower resp. tract infection Retroperitoneal mass Advanced COPD Asthma Depression with anxiety Hypertension Medical History GERD (gastroesophageal reflux disease) Anxiety COPD (chronic obstructive pulmonary disease) HTN (hypertension) History of colon polyps Hypercholesterolemia Surgical History S/P excision of lipoma History of bilateral inguinal hernia repair H/O colonoscopy (~2017) S/P repair of ventral hernia (07/30/10) Laparoscopic ventral hernia repair Dr. Sierra History of knee surgery Rt History of rotator cuff surgery Rt Family History Mother Family history of CABG Dissecting aortic aneurysm (any part), thoracic Heart disease Cardiac disorder Hypertension Father Prostate cancer Hypertension Stroke Aunt Breast cancer Uncle Colorectal cancer Uncle Myocardial infarction Daughter Colorectal cancer Other No family history of adverse response to anesthesia Denies family history of Ovarian cancer Social History Smoking Status: Former smoker Tobacco Type: Cigarettes packs per day: 1; Second Hand Exposure: No; Do You Dip or Chew Tobacco: No; Tobacco Cessation Education Requested by Patient: No Hx Alcohol Use: Yes Alcohol type: wine Alcohol Intake Frequency: 4 or More x per/Week Hx Substance Use: Yes Last Used Substance Other:: 2 weeks ago Substance Use Type Other:: 6 MON AGO Preferred Language: Indian Communication Ability: Effective Press Technician Required: No Beliefs That Will Affect Care: None marital status: Current Living Situation: Spouse current occupational status: retired How many Children do You have: 3 Other Information That Helps Us Care for You: No Feels Safe at Home: Yes Diet: vegan caffeine: Yes (coffee ) during the past year weight has: remained stable Dental Care, Regularly: Yes Physical Activity Frequency: Daily Seatbelt Use: always Sunscreen Use: No Assistive Devices: Glasses Review of Systems Review of Systems: All systems reviewed & are unremarkable except as noted in HPI & below Physical Exam Physical Exam: General- Not in distress Head- atraumatic Eyes- PERRL. ENT- oropharynx clear Neck- supple, no JVD. Lungs- clear to auscultation no wheezing or crackles. Heart- regular rhythm;Tachycardia, no murmur, no gallop. Abdomen- normal bowel sounds, soft, nontender, no distension. Extremities- no pretibial edema, no erythema seen. Neuro- alert, oriented PERRL, no facial palsy; no dysarthria; moves extremities. Results & Data Results & Data Vital Signs (Past 12 Hours) Vital Signs Temp Pulse Pulse Resp BP BP Pulse Ox 12/25/23 19:56 100 H 30 H 131/79 95 12/25/23 19:29 95 12/25/23 19:29 105 H 88 L 12/25/23 17:52 104 H 12/25/23 16:45 38.2 C H 112 H 20 170/85 H 92 O2 Del Method O2 Flow Rate 12/25/23 19:56 Nasal Cannula 2 12/25/23 19:29 Nasal Cannula 2 12/25/23 19:29 Room Air 12/25/23 17:52 12/25/23 16:45 Room Air Diagnostic Findings Laboratory Results WBC 11.15 K/ul (4.8-10.8) H 12/25/23 16:56 RBC 4.36 M/uL (4.70-6.10) L 12/25/23 16:56 Hgb 13.8 g/dl (14.0-18.0) L 12/25/23 16:56 Hct 40.8 % (42.0-52.0) L 12/25/23 16:56 MCV 93.6 fL (80.0-100.0) 12/25/23 16:56 MCH 31.7 pg (25.0-34.0) 12/25/23 16:56 MCHC 33.8 g/dL (32.0-36.0) 12/25/23 16:56 RDW Std Deviation 43.7 fL (36.4-46.3) 12/25/23 16:56 RDW Coeff of Costa 12.8 % (11.5-14.5) 12/25/23 16:56 Plt Count 195 K/uL (130-400) 12/25/23 16:56 MPV 10.1 fL (9.4-12.4) 12/25/23 16:56 Immature Gran % (Auto) 0.4 % 12/25/23 16:56 Neut % (Auto) 89.2 % 12/25/23 16:56 Lymph % (Auto) 6.4 % 12/25/23 16:56 Anson % (Auto) 3.4 % 12/25/23 16:56 Eos % (Auto) 0.2 % 12/25/23 16:56 Baso % (Auto) 0.4 % 12/25/23 16:56 Neut # (Auto) 9.96 K/uL (1.40-6.50) H 12/25/23 16:56 Lymph # (Auto) 0.71 K/uL (1.20-3.40) L 12/25/23 16:56 Anson # (Auto) 0.38 K/uL (0.11-0.59) 12/25/23 16:56 Eos # (Auto) 0.02 K/uL (0.00-0.50) 12/25/23 16:56 Baso # (Auto) 0.04 K/uL (0.00-0.20) 12/25/23 16:56 Immature Gran # (Auto) 0.04 K/uL (0.01-0.20) 12/25/23 16:56 Sodium 135 mmol/L (136-145) L 12/25/23 16:56 Potassium 3.4 mmol/L (3.5-5.1) L 12/25/23 16:56 Chloride 98 mmol/L (98-107) 12/25/23 16:56 Carbon Dioxide 29 mmol/L (21-32) 12/25/23 16:56 Anion Gap 8 (3-11) 12/25/23 16:56 BUN 11 mg/dl (6-23) 12/25/23 16:56 Creatinine 0.74 mg/dl (0.6-1.4) 12/25/23 16:56 Est Cr Clr Drug Dosing 76.7 ml/min 12/25/23 16:56 Est GFR ( Amer) 98.2 ml/min 12/25/23 16:56 Est GFR (Non-Af Amer) 84.7 ml/min 12/25/23 16:56 BUN/Creatinine Ratio 14.9 (10-20) 12/25/23 16:56 Glucose 115 mg/dl (70-99(Fasting)) H 12/25/23 16:56 Lactate 1.5 mmol/L (0.4-2.0) 12/25/23 17:21 Calcium 9.3 mg/dl (8.6-10.3) 12/25/23 16:56 Total Bilirubin 0.9 mg/dl (0.2-1.0) 12/25/23 16:56 AST 19 U/L (13-39) 12/25/23 16:56 ALT 11 U/L (7-52) 12/25/23 16:56 Alkaline Phosphatase 75 U/L (34-104) 12/25/23 16:56 Total Protein 7.5 gm/dl (6.0-8.3) 12/25/23 16:56 Albumin 4.4 gm/dl (3.4-5.0) 12/25/23 16:56 Globulin 3.1 gm/dl (2.5-4.0) 12/25/23 16:56 Albumin/Globulin Ratio 1.4 (0.9-2) 12/25/23 16:56 Procalcitonin < 0.02 ng/ml (0-0.5) 12/25/23 16:56 Urine Color Yellow 12/25/23 16:56 Urine Appearance Clear (Clear) 12/25/23 16:56 Urine pH 8.5 (4.5-7.5) H 12/25/23 16:56 Ur Specific Leonore 1.012 (1.000-1.030) 12/25/23 16:56 Urine Protein Negative (Negative) 12/25/23 16:56 Urine Glucose (UA) Negative (Negative) 12/25/23 16:56 Urine Ketones Negative (Negative) 12/25/23 16:56 Urine Blood Negative (Negative) 12/25/23 16:56 Urine Nitrite Negative (Negative) 12/25/23 16:56 Urine Bilirubin Negative (Negative) 12/25/23 16:56 Urine Urobilinogen Negative (Negative) 12/25/23 16:56 Ur Leukocyte Esterase Negative (Negative) 12/25/23 16:56 Adenovirus (PCR) Not Detected (NotDetected) 12/25/23 16:56 Anaplasma Smear See Comment 12/25/23 16:56 Babesia Smear See Comment 12/25/23 16:56 B. pertussis DNA (PCR) Not Detected (NotDetected) 12/25/23 16:56 B.parapertussis DNA PCR Not Detected (NotDetected) 12/25/23 16:56 Lyme Disease Screen Negative (Negative) 12/25/23 16:56 C. pneumoniae DNA (PCR) Not Detected (NotDetected) 12/25/23 16:56 Coronavirus OC43 (PCR) Not Detected (NotDetected) 12/25/23 16:56 Coronavirus HKU1 (PCR) Not Detected (NotDetected) 12/25/23 16:56 Coronavirus 229E (PCR) Not Detected (NotDetected) 12/25/23 16:56 SARS-CoV-2 (PCR) Not Detected (NotDetected) 12/25/23 16:56 Coronavirus NL63 (PCR) Not Detected (NotDetected) 12/25/23 16:56 Human Metapneumovir PCR Not Detected (NotDetected) 12/25/23 16:56 Influenza Type A (PCR) Not Detected (NotDetected) 12/25/23 16:56 Influenza Type B (PCR) Not Detected (NotDetected) 12/25/23 16:56 M. pneumoniae (PCR) Not Detected (NotDetected) 12/25/23 16:56 Parainfluenza 1 (PCR) Not Detected (NotDetected) 12/25/23 16:56 Parainfluenza 2 (PCR) Not Detected (NotDetected) 12/25/23 16:56 Parainfluenza 3 (PCR) Not Detected (NotDetected) 12/25/23 16:56 Parainfluenza 4 (PCR) Not Detected (NotDetected) 12/25/23 16:56 RSV (PCR) Not Detected (NotDetected) 12/25/23 16:56 Entero/Rhino (PCR) Not Detected (NotDetected) 12/25/23 16:56 Impressions Abdomen/Pelvis CT 12/25/23 17:28 CT OF THE ABDOMEN AND PELVIS WITH CONTRAST CLINICAL HISTORY: Nausea, vomiting and fever. COMPARISON STUDY: Abdominal aortic ultrasound November 14, [address] of the abdomen and pelvis May 16, 2021. TECHNIQUE: Following IV administration of 94 mL of Optiray, axial images of the abdomen and pelvis were obtained from the lung bases to the proximal femurs. Images were reviewed in the axial, sagittal, and coronal planes. IV contrast was administered without complication. Automated exposure control was utilized for the study. A dose lowering technique was utilized adhering to the principles of ALARA. CT DOSE: 877.47 mGy.cm FINDINGS: Moderate alveolar opacities within the right lower lobe are partially imaged. No pneumatosis, free air or portal venous gas is present. Liver, spleen, adrenal glands, right kidney and pancreas are unremarkable. There is no biliary or pancreatic ductal dilatation. There is no hydronephrosis. 3.5 cm water attenuation left lower pole renal lesion represents a cyst. 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 Right common iliac artery measures 2 cm in caliber. The left measures 1.9 cm. There is no evidence for a bowel obstruction. The appendix is normal. There are postoperative findings suggestive of bilateral inguinal hernia repairs as well as a left-sided spigelian hernia repair. A predominantly fatty left lower abdominal focus with mass effect measures 16 x 10 x 6.2 cm. This contains wispy areas of increased attenuation. No solid enhancing component is identified. This displaces adjacent vessels and bowel loops. IMPRESSION: 1. Moderate right lower lobe alveolar opacities, partially imaged on this exam. The findings suggest pneumonia. 2. No bowel obstruction. No bowel wall thickening. 3. Left lower quadrant fatty density with mass effect that measures 16 x 10 x 6.2 cm. This contains wispy areas of increased attenuation without solid enhancing component. This could simply represent fat however given mass effect, other etiologies such as an atypical lipoma or liposarcoma cannot be excluded. A follow-up CT of the abdomen and pelvis in 6 months is recommended. ACT 112: Positive. There are findings on this exam that require communication between the performing entity and the patient following Patient Test Result Information Act ([place] Act 112) guidelines. Electronically signed by: Mark Germain M.D. 12/25/2023 7:09 PM ECG Additional Comments: CC. Accelerated junctional rhythm with retrograde conduction from 115. QTc 644 Code Status & VTE Plan VTE Prophylaxis Plan VTE Prophylaxis will be ordered: Yes
[2023-12-25] MEDS: ACETAMINOPHEN 1,000 MG/100 ML VIAL IV STA ×2 (21:10→23:15)
[2023-12-25] MEDS: KETOROLAC TROMETHAMINE 15 MG/ML VIAL IV ONE (21:22)
[2023-12-25] MEDS: PROMETHAZINE 12.5 MG/50.5 ML BAG IV STA (21:29)
[2023-12-25] MEDS ORDERED: LORazepam 0.5 MG TAB PO PRN (22:08)
[2023-12-25] MEDS ORDERED: NITROGLYCERIN SL 0.4 MG/TAB TAB SL PRN (22:08)
[2023-12-25] MEDS ORDERED: ALBUTEROL HFA 8 GM INHALER INH PRN (22:08)
[2023-12-25] MEDS: FOSAPREPITANT DIMEGLUMINE 115 MG in 0.9 % SODIUM CHLORIDE 111.1667 ML IV ONE (23:01)
[2023-12-25] MEDS: ENOXAPARIN INJ 40 MG/0.4 ML SYR SQ SCH (23:16)
[2023-12-25] MEDS: MAGNESIUM SULFATE / D5W 1 GM/100 ML BAG IV SCH (23:30)
--- NOTE | 2023-12-26 00:02 | CT Scan Report ---
Exam(s): CT CHEST Without Contrast EXAM: CT Chest Without Intravenous Contrast CLINICAL HISTORY: Reason for exam: pneumonia, hypoxia. TECHNIQUE: Axial computed tomography images of the chest without intravenous contrast. CTDI is 13.36 mGy and DLP is 462.91 mGy-cm. Automated exposure control was utilized for the study. A dose lowering technique was utilized adhering to the principles of ALARA. COMPARISON: No relevant prior studies available. FINDINGS: Lungs: RIGHT lower lobe pneumonia. No mass. Pleural space: Unremarkable. No pneumothorax. No significant effusion. Heart: Unremarkable. No cardiomegaly. No significant pericardial effusion. No significant coronary artery calcifications. Bones/joints: Degenerative changes of the spine. No acute fracture. No dislocation. Soft tissues: Unremarkable. Vasculature: Atherosclerotic changes of the aorta. No thoracic aortic aneurysm. Lymph nodes: Unremarkable. No enlarged lymph nodes. IMPRESSION: RIGHT lower lobe pneumonia. Follow-up CXR to document resolution. Electronically signed by: Timoteo Mazariegos MD 12/26/23 00:01 AM
--- OUTSIDE RECORDS SUMMARY | 2023-12-26 00:12 | External Medical Summary | Summary of Care ---
Author Name Unknown Organization [facility] Address [address] [place] [address] Phone [phone] Care Team Providers Care Canoe Inspector Name Role Phone Manuel Cortés DO Primary Care Provider [phone] Reason for Visit * Reason Onset Date Comments Test Results 12/03/202312/02 Encounter Details Date Type Department Care Team (Late st Contact Info) Description 12/03/2023 Telephone Family Practice [address] [place] [phone] Charlotte Griggs DO [address] [employer], [place] [id number] Test Results (12/02) Allergies Active Allergy Reactions Criticality Noted Date Comments Methocarbamol Unknown 11/18/2017 documented as of this encounter (statuses as of 12/05/2023) Medications Medication Sig Dispensed Refills Start Date End Date Status Albuterol Sulfate HFA 108 (90 Base) MCG/ACT Inhalation Aerosol Solution Inhale 2 Puffs by mouth every 6 hours as needed for Cough. 72 g 3 05/22/2020 Active Multivitamin Adult Oral Tablet Chewable Take 1 Tablet by mouth in the morning. Vegan vitamin K2-D3 . Active LORazepam 0.5 MG Oral Tablet (Ativan) Take 1 Tablet (0.5 mg) by mouth daily as needed for Anxiety. 15 Tablet 03/26/2022 Active Krill Oil 500 MG Oral Capsule Take 1 Capsule by mouth in the morning. Active Lisinopril 10 MG Oral Tablet (Prinivil)Indications:HTN , goal below 140/90 Take 1 Tablet by mouth in the morning. This is a dose adjustment. Refill not needed yet. 03/26/2023 Active hydroCHLOROthiazide 12.5 MG Oral Capsule Take 1 Capsule by mouth in the morning. 100 Capsule 3 06/26/2023 Active Potassium Chloride ER 10 MEQ Oral Capsule Extended Release Take 1 Capsule by mouth in the morning. 100 Capsule 3 06/26/2023 Active Rosuvastatin Calcium 10 MG Oral Tablet (Crestor)Indications:Pure hypercholesterolemia Take 1 Tablet by mouth in the morning. 100 Tablet 3 10/21/2023 Active predniSONE 10 MG Oral Tablet (Deltasone)Indications:Ac keyonna gout of left wrist, unspecified cause Take 5 tabs for 2 days, 4 tabs for 2 days, 3 tabs for 2 days, 2 tabs for 2 days 1 tab for 2 days 30 Tablet 11/28/2023 Active Famotidine 20 MG Oral Tablet (Pepcid)Indications:Gastr o-esophageal reflux disease without esophagitis TAKE ONE TABLET BY MOUTH EVERY MORNING AND ONE TABLET BEFORE BEDTIME 200 Tablet 3 11/29/2023 Active documented as of this encounter (statuses as of 12/05/2023) Active Problems Problem Noted Date Diagnosed Date BPH with obstruction/lower urinary tract symptom s 10/21/2023 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 06/20/2023 COPD, group A, by GOLD 2017 classification 07/03 Overview: Per COPD GOLD Classification HTN, goal below 140/90 12/22/2019 Gastro-esophageal reflux disease without esophag itis 12/22/2019 Pure hypercholesterolemia 12/22/2019 documented as of this encounter (statuses as of 12/05/2023) Resolved Problems Problem Noted Date Diagnosed Date Resolved Date Chronic obstructive pulmonary disease 12/22/2019 07/06/2020 Overview: Per COPD GOLD Classification documented as of this encounter (statuses as of 12/05/2023) Immunizations Name Administration Dates Next Due COVID-19 mRNA, LNP-s, No Pre serve, 2-Dose Series (Moderna) 08/14/2021,06/28/2020,05/31/2020 COVID-19, MRNA-LNP, 23-24, P F, 30 MCG/0.3 mL, 12 YRS AND ABOVE, IM (PFIZER-Comirnaty) 10/21/2023 COVID-19, MRNA-LNP, 23-24, P F, 50 MCG/0.5 mL, 12 YRS AND ABOVE, IM (MODERNA-Spikevax) 02/06/2023 COVID-19, mRNA, LNP-s, PF, B ooster, 100mcg/0.5mg (Moderna) 02/22/2021 Covid-19, Mrna, Lnp-s, Pf, B ivalent, 50 Mcg, IM, 12 yrs and above (Moderna) 04/18/2022 Pneumococcal Conjugate Vacc, 13 Valent (Prevnar) 04/30/2016 Pneumococcal Polysaccharide PPV23 (Pneumovax) 01/19/2021,02/25/2007 RSV Vac., Bivalent, Perfusio n F, Pf,0.5 Ml (Abrysvo) 02/18/2023 Seasonal Influenza, Quadriva lent Hd (Fluzone Hd) 01/29/2023,02/19/2022,01/19/2021 Seasonal Influenza, Split, I IV3, With Preserve, Inj 02/24/2018,02/14/2014,03/18/2013,03/10,03/07/2011,05/11/2009,03/02/2009 ,02/24/2008,02/25/2007 Seasonal Influenza, Trivalen t, Adjuvanted, 65+ yrs 01/31/2020 Seasonal Influenza, Trivalen t, High Dose, No Preserve, IM 02/15/2019 TDAP (age 10 and older)(Boostrix) 10/31/2014 Varicella Zoster Vaccine (Adult) 01/18/2015 Zoster Vaccine Recombinant (Shingrix) 04/03/2020 ,01/31/2020 documented as of this encounter Social History Tobacco Use Types Packs/Day Years Used Date Smoking Tobacco: Former Cigarettes 1 12 0 04/28/1955 - 04/28/1967 Passive Smoke Exposure: Past Smokeless Tobacco: Never Alcohol Use Standard Drinks/Week Comments Yes 7 (1 standard drink = 0.6 oz pur e alcohol) once a week AUDIT-C Answer Date Recorded Q1: How often do you have a drink containing alcohol? 4 or more times a week 03/27/2021 Q2: How many drinks containi ng alcohol do you have on a typical day when you are drinking? 1 or 2 Q3: How often do you have si x or more drinks on one occasion? Never 03/27/2021 PHQ-2 Answer Date Recorded PHQ Adult Total Score 0 02/24/2023 Hunger Vital Sign Answer Date Recorded Within the past 12 months, y ou worried that your food would run out before you got the money to buy more. Never true 02/25/20 23 Within the past 12 months, t he food you bought just didn't last and you didn't have money to get more. Never true 02/24/2023 Childcare Answer Date Recorded Do you feel overwhelmed with taking care of a child, family member or friend? No 02/24/2023 Does your family need help f inding childcare? (Household - for ages 0-17 years) Not on file 02/24/2023 Clothing Answer Date Recorded Have you been unable to get clothing when it was really needed? No 02/24/2023 Is your family able to get c lothes or diapers when needed? (Household - for ages 0-17 years) Not on file 02/24/2023 Personal Safety Answer Date Recorded Do you feel unsafe or have concerns for your saf ety? No 02/24/2023 Do you have concerns for you r family's safety? (Household - for ages 0-17 years) Not on file 02/24/2023 Utilities Answer Date Recorded Do you have trouble paying y our heating, water, or electric bill? No 02/24/2023 Is your family able to pay t he heat, water, or electric bill? (Household - for ages 0-17 years) Not on file 02/24/2023 Does your family have access to good internet? (Household - for ages 0-17 years) Not on file 02/24/2023 Employment Status Answer Date Recorded Are you unemployed or without regular income? No 02/24/2023 Does the household have a re gular source of income? (Household - for ages 0-17 years) Not on file 02/24/2023 Social Connections Answer Date Recorded How often do you feel lonely or isolated from th ose around you? Never 02/24/2023 Financial Resource Strain Answer Date R ecorded Do you have any trouble payi ng for your medications, or do you think you might in the future? No 02/24/2023 Does your family have troubl e paying for medicine? (Household - for ages 0-17 years) Not on file 02/24/2023 Transportation Needs Answer Date Record ed READ ONLY Do you have troubl e getting a ride to medical visits or work? Never True 02/24/2023 Does your family have a hard time getting a ride to doctors visits? (Household - for ages 0-17 years) Not on file 02/24/2023 Has lack of transportation k ept you from medical appointments, meetings, work, or from getting things needed for daily living? Check all that apply. (Adult - for ages 18 years and over) Not on file 02/24/2023 Do you (or your family) have trouble finding or paying for a ride (transportation)? (Household - for ages 0-17 years) Not on file 02/24/2023 Housing Stability Answer Date Recorded Do you currently live in a s helter or have no steady place to sleep at night? No 02/24/2023 READ ONLY Do you think you a re at risk of becoming homeless? No 02/24/2023 Does your family worry about paying for your home or becoming homeless? (Household - for ages 0-17 years) Not on file 1 Are you homeless or worried that you might be in the future? (Adult - for ages 18 years and over) Not on file Are you (or your family) dafne eless or worried that you might be in the future? (Household - for ages 0-17 years) Not on file Food Insecurity Answer Date Recorded Do you need food for this week? No 02/24/2023 Are you able to get enough f ood for your family? (Household - for ages 0-17 years) Not on file 02/24/2023 Does your family need food t his week? (Household - for ages 0-17 years) Not on file 02/24/2023 Do you always have enough fo od for your family? (Household - for ages 0-17 years) Not on file 02/24/2023 Sex and Gender Information Value Date Recorded Sex Assigned at Male 03/27/2021 2:09 PM EST Gender Identity Male 03/27/2021 2:09 PM EST Sexual Orientation Straight 03/27/2021 2: 09 PM EST Job Start Date Occupation Industry Not on file Not on file Not on file documented as of this encounter Miscellaneous Notes * Telephone Encounter - Charlotte Griggs DO - 12/05/2023 8:50 AM EDT Noted. * Telephone Encounter - Manuel Cortés DO - 12/03/2023 3:10 PM EDT Noted * Telephone Encounter - Yessy Huitron LPN - 12/03/2023 3:07 PM EDT Call placed to patient and relayed information from Dr. Griggs. Pt acknowledged understanding andwill have repeat lab work completed. Pt reports that symptoms completely resolved within 2 days of taking prednisone. Reports hands/wrists are fine now. * Telephone Encounter - Yessy Huitron LPN - 12/03/2023 12:00 PM EDT Call placed to patient - no answer. Message left to return call to [phone]. * Telephone Encounter - Charlotte Griggs DO - 12/03/2023 8:04 AM EDT Please let pt know: His uric acid was normal but at the upper end of normal. I would like him to repeat in 1 month. Order in. How his is wrist with the prednisone? documented in this encounter Plan of Treatment Upcoming Encounters Date Type Department Care Team (Late st Contact Info) Description 02/04/2024 11:00 AM EDT Office Visit Family Practice [address] [place] [address] [facility] [place] [phone] Manuel Cortés DO [address] [facility] [place] [address] 05/05/2024 11:00 AM EST Office Visit Urology Adilene Christianson [address] [address] Sean Arellano Jr., MD [address] [place] [address] Scheduled Orders Name Type Priority Associated Diagnoses Orde r Schedule URIC ACID Lab Routine Acute gout of left wrist, unspecified cause Expected: 01/03/2024 (Approximate), Expires: 12/02/2024 Health Maintenance Due Date Last Done Comments Alpha-1 Antitrypsin 12/22/1958 Adult Wellness Visit 12/22/2005 Influenza Vaccine (FLU shot) (#1) 2023 01/29/2023, 02/19/2022, 01/19/2021, Additional history exists Depression Screening 02/25/2024 02/24/2023 DTaP,Tdap,and Td Vaccines (2 - Td or Tdap) 10/31/2024 10/31/2014 GFR 11/27/2024 11/28/2023, 09/26, 04/03/2023, Additional history exists O2 ASSESSMENT COMPLETED IN PAST YEAR FOR COPD 11/27/2024 11/28/2023 Albumin/Creatinine Ratio 06/10/2025 06/10/2022, 06/27 Zoster Vaccines Completed 04/03/2020, 08/2019, 01/18/2015 Pneumococcal Vaccine: 65+ Years Completed 01/19/2021, 04/30/2016, 02/25/2007 RETIRED - COLONOSCOPY-EVERY 5 YRS AGES 18-100 Discontinued 06/27/2021, 06/27/2021, 10/08/2019, Additional history exists COVID-19 Vaccine Completed 10/21/2023, 03/2023, 04/18/2022, Additional history exists HPV (Gardasil) Vaccine Aged Out No lo nger eligible based on patient's age to complete this topic Hepatitis B Vaccine Aged Out No longe r eligible based on patient's age to complete this topic MENINGOCOCCAL (MENACTRA/MENVEO) Aged Out No longer eligible based on patient's age to complete this topic documented as of this encounter Medical Devices Not on filedocumented as of this encounter Visit Diagnoses Diagnosis Acute gout of left wrist, unspecified cause- Primary documented in this encounter Care Teams Canoe Inspector Relationship Specialty Start Date End Date Manuel Cortés DO [address] [facility] [place] [address] PCP - General Internal Medicine 10/17/23 documented as of this encounter
--- OUTSIDE RECORDS SUMMARY | 2023-12-26 00:13 | External Medical Summary | Summary of Care ---
Author Name Unknown Organization [facility] Address [address] [place] [address] Phone [phone] Care Team Providers Care Rn Clinical Research Name Role Phone Manuel Cortés DO Primary Care Provider [phone] Reason for Visit * Reason Comments Follow Up Encounter Details Date Type Department Care Team (Latest Contact Info) Description 10/21/2023 9:20 AM EDT Office Visit Family Practice [address] [facility] [address] [place] [address] Manuel Cortés DO [address] [place] [address] HTN, goal below 140/90*; COPD, group A, by GOLD 2017 classification (HCC); Gastro-esophageal reflux disease without esophagitis; Pure hypercholesterolemia; BPH with obstruction/lower urinary tract symptoms; Submandibular swelling Allergies Active Allergy Reactions Criticality Noted Date Comments Bee Venom 11/18/2017 Once was stung on [id number] been stung since with no reaction Methocarbamol Unknown 11/18/2017 documented as of this encounter (statuses as of 10/21/2023) Medications Medication Sig Dispensed Refills Start Date End Date Status Albuterol Sulfate HFA 108 (90 Base) MCG/ACT Inhalation Aerosol Solution Inhale 2 Puffs by mouth every 6 hours as needed for Cough. 72 g 3 1 Active Multivitamin Adult Oral Tablet Chewable Take 1 Tablet by mouth in the morning. Vegan vitamin K2-D3 . Active LORazepam 0.5 MG Oral Tablet (Ativan) Take 1 Tablet (0.5 mg) by mouth daily as needed for Anxiety. 15 Tablet 2 Active Krill Oil 500 MG Oral Capsule Take 1 Capsule by mouth in the morning. Active Famotidine 20 MG Oral Tablet (Pepcid)Indications:Gastr o-esophageal reflux disease without esophagitis TAKE ONE TABLET BY MOUTH EVERY MORNING AND ONE TABLET BEFORE BEDTIME 200 Tablet 3 3 12/07/19 24 Active Additional Information Patient taking differently: 20 mg Oral Daily(AM), Reported on 02/11/2023 Lisinopril 10 MG Oral Tablet (Prinivil)Indications:HTN , goal below 140/90 Take 1 Tablet by mouth in the morning. This is a dose adjustment. Refill not needed yet. 3 Active hydroCHLOROthiazide 12.5 MG Oral Capsule (Hydrodiuril) Take 1 Capsule by mouth in the morning. 100 Capsule 3 4 Active Potassium Chloride ER 10 MEQ Oral Capsule Extended Release Take 1 Capsule by mouth in the morning. 100 Capsule 3 4 Active Rosuvastatin Calcium 10 MG Oral Tablet (Crestor)Indications:Pure hypercholesterolemia Take 1 Tablet by mouth in the morning. 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 06/20/2023 COPD, group A, by GOLD 2017 classification 07/03 Overview: Per COPD GOLD Classification HTN, goal below 140/90 12/22/2019 Gastro-esophageal reflux disease without esophag itis 12/22/2019 Pure hypercholesterolemia 12/22/2019 documented as of this encounter (statuses as of 10/21/2023) Resolved Problems Problem Noted Date Diagnosed Date Resolved Date Chronic obstructive pulmonary disease 12/22/2019 07/06/2020 Overview: Per COPD GOLD Classification documented as of this encounter (statuses as of 10/21/2023) Immunizations Name Administration Dates Next Due COVID-19 [...] Passive Smoke Exposure: Past Smokeless Tobacco: Never Tobacco Cessation:Counseling Given: Not Answered Alcohol Use Standard Drinks/Week Comments Yes 7 [...] on file documented as of this encounter Last Filed Vital Signs Vital Sign Reading Time Taken Comments Blood Pressure 140/90 10/21/2023 9:19 AM EDT Pulse 71 10/21/2023 9:19 AM EDT Temperature 36.5 C (97.7 F) 10/21/2023 9:19 AM ED T Respiratory Rate - - Oxygen Saturation 97% 10/21/2023 9:19 AM EDT Inhaled Oxygen Concentration - - Weight 76.6 kg (168 lb 12.8 oz) 10/21/2023 9:19 AM EDT Height - - Body Mass Index 24.22 06/20/2023 8:25 AM EST documented in this encounter Progress Notes * Manuel Cortés, - 10/21/2023 9:47 AM EDT SUBJECTIVE: Lul Mead is a 82 year old male. Chief Complaint Patient presents with Follow Up HPI: Patient is an 82 year old male with a history of HTN, COPD, Hyperlipidemia, and GERD that is seen for follow up. He is feeling well and exercises daily without difficulty. No chest pain or shortness of breat hare present. Weight is stable and appetite is good. Cholesterol is up. Patient has painfularea in soft tissue in the right submandibular area that has been present for a few weeks. He has oc casional difficulty swallowing solids as well. 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 72 g 3 Multivitamin Adult Oral Tablet Chewable Take 1 Tablet by mouth in the morning. Vegan vitamin K2-D3 . LORazepam 0.5 MG Oral Tablet (Ativan) Take 1 Tablet (0.5 mg) by mouth daily as needed for Anxiety. 15 Tablet 0 Krill Oil 500 MG Oral Capsule Take 1 Capsule by mouth in the morning. Famotidine 20 MG Oral Tablet (Pepcid) TAKE ONE TABLET BY MOUTH EVERY MORNING AND ONE TABLET BEFORE BEDTIME (Patient taking differently: Take 1 Tablet by mouth in the morning.) 200 Tablet 3 Lisinopril 10 MG Oral Tablet (Prinivil) Take 1 Tablet by mouth in the morning. This is a dose adjustment. Refill not needed yet. hydroCHLOROthiazide 12.5 MG Oral Capsule (Hydrodiuril) Take 1 Capsule by mouth in the morning. 100 Capsule 3 Potassium Chloride ER 10 MEQ Oral Capsule Extended Release Take 1 Capsule by mouth in the morning. 100 Capsule 3 Rosuvastatin Calcium 10 MG Oral Tablet (Crestor) Take 1 Tablet by mouth in the morning. 100 Tablet 3 No current facility-administered medications for this visit. The patient's medication list was reviewed and updated as needed. Past Medical History: Diagnosis Date BPH with obstruction/lower urinary tract symptoms 10/21/2023 Diverticulosis of colon (without mention of hemorrhage) sigmoid colon GERD (gastroesophageal reflux disease) HTN, goal below 140/90 Personal history of colonic polyps 05/05-TA polyps Pure hypercholesterolemia 12/22/2019 Past Surgical History: Procedure Laterality Date COLONOSCOPY, DIAGNOSTIC (RECTUM) 10/07/2012 benign polyps, diverticulosis, repeat 5 yrs/COLONOSCOPY FLEXIBLE PROXIMAL DIAGNOSTIC performed by Marc hBat MD at ENDOSCOPY [facility] COLONOSCOPY, DIAGNOSTIC (RECTUM) N/A 12/10/2017 adenomatous polyp, diverticulosis, repeat 5 yrs/COLONOSCOPY FLEXIBLE PROXIMAL DIAGNOSTIC performed by Marc Bhat MD at ENDOSCOPY [facility] COLONOSCOPY, DIAGNOSTIC (RECTUM) 06/27/2021 adenomatous polyp, diverticulosis / COLONOSCOPY FLEXIBLE PROXIMAL DIAGNOSTIC performed by Marc Bhat MD at ENDOSCOPY [facility] REMOVE CATARACT, INSERT LENS PROSTH Left 12/04/2021 REMOVE CATARACT, INSERT LENS PROSTH Right 12/25/2021 REPAIR INGUINAL HERNIA, UNDER AGE 5 Bilateral Review of patient's allergies indicates: Allergen Reactions Bee Venom Once was stung on [id number] been stung since with no reaction Methocarbamol Unknown Review of Systems Constitutional: Negative for appetite change, fatigue and unexpected weight change. HENT: Positive for trouble swallowing. Respiratory: Negative for cough, shortness of breath and wheezing. Cardiovascular: Negative for chest pain, palpitations and leg swelling. Gastrointestinal: Negative for abdominal pain, blood in stool, constipation, diarrhea, nausea and vomiting. Genitourinary: Negative for dysuria and hematuria. Musculoskeletal: Negative for back pain and gait problem. Neurological: Negative for dizziness, syncope and headaches. Psychiatric/Behavioral: Negative for confusion, decreased concentration and sleep disturbance. OBJECTIVE: BP 140/90 (BP Site: Left Arm, BP Position: Sitting) | Pulse 71 | Temp 36.5 C (97.7 F) (Tympanic) | Wt 76.6 kg (168 lb 12.8 oz) | SpO2 97% | BMI 24.22 kg/m | BSA 1.95 m Physical Exam Vitals and nursing note reviewed. Constitutional: General: He is not in acute distress. Appearance: Normal appearance. He is not toxic-appearing. HENT: Head: Normocephalic and atraumatic. Neck: Comments: Submandibular painful nodule present Cardiovascular: Rate and Rhythm: Normal rate and regular rhythm. Heart sounds: Normal heart sounds. No murmur heard. No gallop. Pulmonary: Effort: Pulmonary effort is normal. Breath sounds: Normal breath sounds. No wheezing, rhonchi or rales. Abdominal: General: Bowel sounds are normal. There is no distension. Palpations: Abdomen is soft. Tenderness: There is no abdominal tenderness. Musculoskeletal: Right lower leg: No edema. Left lower leg: No edema. Lymphadenopathy: Cervical: Right cervical: No superficial or deep cervical adenopathy. Left cervical: No superficial or deep cervical adenopathy. Neurological: Mental Status: He is alert and oriented to person, place, and time. Mental status is at baseline. Motor: No weakness. Gait: Gait normal. Psychiatric: Mood and Affect: Mood normal. Behavior: Behavior normal. Thought Content: Thought content normal. Results for orders placed or performed in visit on 10/10/23 PSA Result Value Ref Range PSA 4.86 (H) <4.10 ng/mL COMPREHENSIVE METABOLIC PANEL Result Value Ref Range BUN 16 6 - 20 mg/dL Creatinine 0.9 0.6 - 1.2 mg/dL Estimated Glomerular Filtration Rate 86 >=60 mL/min Sodium 141 135 - 146 mmol/L Potassium 4.4 3.5 - 5.1 mmol/L Chloride 101 98 - 107 mmol/L CO2 28 22 - 32 mmol/L Anion Gap 12 7 - 15 mmol/L Glucose 91 70 - 120 mg/dL Albumin 4.1 3.8 - 5.0 g/dL AST 21 10 - 50 U/L Alkaline Phosphatase 85 35 - 130 U/L Bilirubin, Total 0.6 <=1.2 mg/dL Calcium 9.4 8.4 - 10.2 mg/dL Protein 6.8 6.0 - 8.3 g/dL ALT 14 10 - 50 U/L LIPID PANEL WITH DIRECT LDL IF TG IS HIGH Result Value Ref Range Triglycerides 65 <=174 mg/dL Cholesterol 254 (H) <200 mg/dL HDL Cholesterol 100 >39 mg/dL Non-HDL Cholesterol 154 <=159 mg/dL LDL Cholesterol 141 (H) <=129 mg/dL CBC Result Value Ref Range WBC 4.87 4.00 - 10.80 K/uL RBC 4.61 4.50 - 5.25 M/uL HGB 14.7 14.0 - 16.8 g/dL HCT 44.7 40.0 - 48.4 % MCV 97.0 82.0 - 99.5 fL MCH 31.9 27.0 - 34.0 pg MCHC 32.9 32.0 - 36.0 g/dL RDW 12.9 11.5 - 15.5 % PLT 215 140 - 400 K/uL MPV 9.8 6.6 - 11.1 fL DIFFERENTIAL, AUTOMATED Result Value Ref Range WBC 4.87 4.00 - 10.80 K/uL Neutrophils % 53.3 40.0 - 75.0 % Lymphocytes % 33.3 18.0 - 42.0 % Monocytes % 9.9 1.0 - 11.0 % Eosinophils % 2.5 0.0 - 6.0 % Basophils % 1.0 0.0 - 2.0 % Absolute Neutrophils 2.60 1.80 - 7.70 K/uL Absolute Lymphocytes 1.62 1.00 - 4.80 K/ul Absolute Monocytes 0.48 0.00 - 1.10 K/uL Absolute Eosinophils 0.12 0.00 - 0.70 K/uL Absolute Basophils 0.05 0.00 - 0.20 K/uL PLAN AND ASSESSMENT: HTN, goal below 140/90 (Primary) Continue Lisinopril and HCTZ COPD, group A, by GOLD 2017 classification (HCC) Continue Albuterol Gastro-esophageal reflux disease without esophagitis Continue Famotidine Pure hypercholesterolemia - Start Rosuvastatin Calcium 10 MG Oral Tablet (Crestor); Take 1 Tablet by mouth in the morning. - LIPID PANEL WITH DIRECT LDL IF TG IS HIGH; Future; Expected date: 01/21/2024 - ALT; Future; Expected date: 01/21/2024 BPH with obstruction/lower urinary tract symptoms Continue to follow with urology Submandibular swelling - US HEAD AND NECK; Future; Expected date: 10/21/2023 Other orders - COVID-19, MRNA-LNP, PF, 23-24, 30MCG/0.3ML, IM, 12YRS AND ABOVE ([place] [employer]) Follow Up: Return in about 4 months (around 02/20/2024), or if symptoms worsen or fail to improve. Manuel Cortés DO 9:47 AM 10/21/2023 documented in this encounter Nursing Notes * Sully Lloyd CCMA - 10/21/2023 9:16 AM EDT Pt here for follow up today. Has complaints of pain under the chin/neck area. Had it all last week but pain has subsided. Also states that he has a hard time swallowing and pills get stuck. On going about a couple weeks. Also wants to know if there is another form of Krill Oil he can take other than the gel capsule. Has questions about his cholesterol levels. documented in this encounter Plan of Treatment Upcoming Encounters Date Type Department Care Team (Late st Contact Info) Description 10/23/2023 11:15 AM EDT Imaging Radiology [facility] [address] [place] [address] 02/04/2024 11:00 AM EDT Office Visit Family Practice [facility] [address] [place] [address] [facility] [address] [facility] [address] 05/05/2024 11:00 AM EST Office Visit Urology Adilene Christianson [address] [place] [address] Sean Arellano Jr., MD [address] [place] [address] Scheduled Orders Name Type Priority Associated Diagnoses Orde r Schedule LIPID PANEL WITH DIRECT LDL IF TG IS HIGH Lab Routine Pure hypercholesterolemia Expected: 01/21/2024, Expires: 10/20/2024 ALT Lab Routine Pure hypercholesterolemia Expected: 01/21/2024, Expires: 10/20/2024 US HEAD AND NECK Medical Imaging Routine Submandibular swelling Expected: 10/21/2023, Expires: 11/19/2024 Health Maintenance Due Date Last Done Comments Alpha-1 Antitrypsin 12/22/1958 Depression Screening 02/25/2024 02/24/2023 GFR 10/09/2024 10/10/2023, 10/2022, 06/10/2022, Additional history exists O2 ASSESSMENT COMPLETED IN PAST YEAR FOR COPD 10/20/2024 10/21/2023 DTaP,Tdap,and Td Vaccines (2 - Td or Tdap) 10/31/2024 10/31/2014 Albumin/Creatinine Ratio 06/10/2025 06/10/2022, 06/27 Zoster Vaccines Completed 04/03/2020, 08/2019, 01/18/2015 Pneumococcal Vaccine: 65+ Years Completed 01/19/2021, 04/30/2016, 02/25/2007 RETIRED - COLONOSCOPY-EVERY 5 YRS AGES 18-100 Discontinued 06/27/2021, 06/27/2021, 10/08/2019, Additional history exists Influenza Vaccine (FLU shot) Completed 01/29/2023, 02/19/2022, 01/19/2021, Additional history exists COVID-19 Vaccine Completed 10/21/2023, 03/2023, 04/18/2022, Additional history exists GARDASIL-HPV IMMUNIZATION SERIES Aged Out No longer eligible based on patient's age to complete this topic Hepatitis B Aged Out No longer eligi ble based on patient's age to complete this topic MENINGOCOCCAL (MENACTRA/MENVEO) Aged Out No longer eligible based on patient's age to complete this topic documented as of this encounter Medical Devices Not on filedocumented as of this encounter Visit Diagnoses Diagnosis HTN, goal below 140/90- Primary Unspecified essential hypertension COPD, group A, by GOLD 2017 classification (HCC) Gastro-esophageal reflux disease without esophagitis Esophageal reflux Pure hypercholesterolemia BPH with obstruction/lower urinary tract symptoms Hypertrophy of prostate with urinary obstruction and other lower urinary tract symptoms (LUTS) Submandibular swelling Swelling, mass, or lump in head and neck documented in this encounter Care Teams Rn Clinical Research Relationship Specialty Start Date End Date Manuel Cortés DO [address] [place] [address] PCP - General Internal Medicine 10/17/23 documented as of this encounter"
--- OUTSIDE RECORDS SUMMARY | 2023-12-26 00:13 | External Medical Summary | Summary of Care ---
Author Name Unknown Organization [facility] Address [address] [place] [address] Phone [phone] Care Team Providers Care Reverse Unit Operator Fisherman Name Role Phone Sarah Cortés DO Primary Care Provider [phone] Reason for Visit * Reason Comments Medication Refill Encounter Details Date Type Department Care Team (Late st Contact Info) Description 11/29/2023 Refill Family Practice [address] [place] [address] [place] [address] Sarah Cortés DO [address] [place] [address] Gastro-esophageal reflux disease without esophagitis Allergies Active Allergy Reactions Criticality Noted Date Comments Methocarbamol Unknown 11/18/2017 documented as of this encounter (statuses as of 11/29/2023) Medications Medication Sig Dispensed Refills Start Date [...] 3 Active hydroCHLOROthiazide 12.5 MG Oral Capsule Take 1 Capsule by mouth in the morning. 100 Capsule 3 4 Active Potassium Chloride ER 10 MEQ Oral Capsule Extended Release Take 1 Capsule by mouth in the morning. 100 Capsule 3 4 Active Rosuvastatin Calcium 10 MG Oral Tablet (Crestor)Indications:Pure hypercholesterolemia Take 1 Tablet by mouth in the morning. 100 Tablet 3 4 Active predniSONE 10 MG Oral Tablet (Deltasone)Indications:Ac sitka gout of left wrist, unspecified cause Take 5 tabs for 2 days, 4 tabs for 2 days, 3 tabs for 2 days, 2 tabs for 2 days 1 tab for 2 days 30 Tablet 4 Active Famotidine 20 MG Oral Tablet (Pepcid)Indications:Gastr o-esophageal reflux disease without esophagitis TAKE ONE TABLET BY MOUTH EVERY MORNING AND ONE TABLET BEFORE BEDTIME 200 Tablet 3 4 11/29/19 25 Active Famotidine 20 MG Oral Tablet (Pepcid)Indications:Gastr o-esophageal reflux disease without esophagitis TAKE ONE TABLET BY MOUTH EVERY MORNING AND ONE TABLET BEFORE BEDTIME 200 Tablet 3 3 11/29/19 24 Discontinu ed(Refill) documented as of this encounter (statuses as of 11/29/2023) Active Problems Problem Noted Date Diagnosed Date BPH with obstruction/lower urinary tract symptom s 10/21/2023 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 06/20/2023 COPD, group A, by GOLD 2017 classification 07/03 Overview: Per COPD GOLD Classification HTN, goal below 140/90 12/22/2019 Gastro-esophageal reflux disease without esophag itis 12/22/2019 Pure hypercholesterolemia 12/22/2019 documented as of this encounter (statuses as of 11/29/2023) Resolved Problems Problem Noted Date Diagnosed Date Resolved Date Chronic obstructive pulmonary disease 12/22/2019 07/06/2020 Overview: Per COPD GOLD Classification documented as of this encounter (statuses as of 11/29/2023) Immunizations Name Administration Dates Next Due COVID-19 [...] money to buy more. Never true 02/25/20 Within the past 12 months, t he [...] encounter Miscellaneous Notes * Telephone Encounter - Kale Simons [facility] - 11/29/2023 7:19 AM EDT Signed Prescriptions: Disp Refills Famotidine 20 MG Oral Tablet (Pepcid) 200 Ta*3 Sig: TAKE ONE TABLET BY MOUTH EVERY MORNING AND ONE TABLET BEFORE BEDTIMEAuthorizing Provider: SARAH CORTÉS AOrdering User: KALE SIMONS documented in this encounter Plan of Treatment Upcoming Encounters Date Type Department Care Team (Late st Contact Info) Description 02/04/2024 11:00 AM EDT Office Visit Family Practice [address] [place] [address] [place] [address] Sarah Cortés, [address] [place] [address] 05/05/2024 11:00 AM EST Office Visit Urology Adilene Christianson [address] [place] [address] Sean Arellano Jr., MD [address] [place] [address] Health Maintenance Due Date Last Done Comments Alpha-1 Antitrypsin 12/22/1958 Influenza Vaccine (FLU shot) (#1) 2023 01/29/2023, [...] as of this encounter Visit Diagnoses Diagnosis Gastro-esophageal reflux disease without esophagitis Esophageal reflux documented in this encounter Care Teams Reverse Unit Operator Fisherman Relationship Specialty Start Date End Date Sarah Cortés DO [address] [place] [address] PCP - General Internal Medicine 10/17/23 documented as of this encounter
--- OUTSIDE RECORDS SUMMARY | 2023-12-26 00:13 | External Medical Summary | Summary of Care ---
Author Name Unknown Organization [facility] Address [address] [place] [address] Phone [phone] Care Team Providers Care Career Technical Education Teacher Name Role Phone Sarah Cortés DO Primary Care Provider [phone] Reason for Visit * Reason Comments NEW PATIENT * Evaluate & Treat - Unlimited Visits (Within 10 days (routine)) - Authorized Specialty Diagnoses / Procedures Referred By Maria Elena patel Referred To Contact Urology Diagnoses Elevated prostate specific antigen (PSA) Sarah Cortsé DO [address] [place] [address] Referral ID Status Reason Start Date Expiration Date Visits Requested Visits Authorized [id number] Authorized Specialty Services Required 10/13/2023 [id number] Encounter Details Date Type Department Care Team (Late st Contact Info) Description 10/20/2023 2:00 PM EDT [facility] [address] [place] [address] Sean Arellano Jr., MD 27 [facility] [address] [place] [address] Elevated prostate specific antigen (PSA)*; Renal cyst, acquired; BPH without obstruction/lower urinary tract symptoms Allergies Active Allergy Reactions Criticality Noted Date Comments Bee Venom 11/18/2017 Once was stung on itui-jhubbmkl-tzd been stung since with no reaction Methocarbamol Unknown 11/18/2017 documented as of this encounter (statuses as of 10/20/2023) Medications Medication Sig Dispensed Refills Start Date [...] morning. Active Famotidine 20 MG Oral Tablet (Pepcid)Indication s:Gastro-esophagea l reflux disease without esophagitis TAKE ONE TABLET BY MOUTH EVERY MORNING AND ONE TABLET BEFORE BEDTIME 200 Tablet 3 10/07/2022 12/07/2023 Active Additional Information Patient taking differently: 20 mg Oral Daily(AM), Reported on 02/11/2023 Lisinopril 10 MG Oral Tablet (Prinivil)Indicati ons:HTN, goal below 140/90 Take 1 Tablet by mouth in the morning. This is a dose adjustment. Refill not needed yet. 03/26/2023 Active hydroCHLOROthiazid e 12.5 MG Oral Capsule (Hydrodiuril) Take 1 Capsule by mouth in the morning. 100 Capsule 3 06/26/2023 Active Potassium Chloride ER 10 MEQ Oral Capsule Extended Release Take 1 Capsule by mouth in the morning. 100 Capsule 3 06/26/2023 Active documented as of this encounter (statuses as of 10/20/2023) Active Problems Problem Noted Date Diagnosed Date 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 06/20/2023 COPD, group A, by GOLD 2017 classification 07/03 Overview: Per COPD GOLD Classification HTN, goal below 140/90 12/22/2019 Gastro-esophageal reflux disease without esophag itis 12/22/2019 Pure hypercholesterolemia 12/22/2019 documented as of this encounter (statuses as of 10/20/2023) Resolved Problems Problem Noted Date Diagnosed Date Resolved Date Chronic obstructive pulmonary disease 12/22/2019 07/06/2020 Overview: Per COPD GOLD Classification documented as of this encounter (statuses as of 10/20/2023) Immunizations Name Administration Dates Next Due COVID-19 mRNA, LNP-s, No Pre serve, 2-Dose Series (Moderna) 08/14/2021,06/28/2020,05/31/2020 COVID-19, MRNA-LNP, 23-24, P F, 50 MCG/0.5 [...] on file documented as of this encounter Progress Notes * Sean Arellano Jr., MD - 10/20/2023 1:37 PM EDT [id number] PCP: [place] [address] [phone] Lul Mead is a 82 year old male, who presents in referral for evaluation of PSA elevation. He has mild slow flow and rare nocturia. His father may have had prostate cancer. He is on no BPH medications. PSA Results: Lab Results Component Value Date/Time PSA - [facility] 4.86 (H) 10/10/2023 10:07 AM PSA - [facility] 2.81 07/19/2020 08:[address] scan 05/19 showed mild BPH and left renal cyst. Current Outpatient Medications Medication Sig Dispense Refill [...] mouth in the morning. 100 Capsule 3 No current facility-administered medications for this visit. Review of patient's allergies indicates: Allergen Reactions Bee Venom Once was stung on rhmw-ohzxeyvd-fao been stung since with no reaction Methocarbamol Unknown Social History: Social History Tobacco Use Smoking status: Former Current packs/day: 0.00 Average packs/day: 1 pack/day for 12.0 years (12.0 ttl pk-yrs) Types: Cigarettes Start date: 04/28/1955 Quit date: 04/28/1967 Years since quittin.5 Passive exposure: Past Smokeless tobacco: Never Substance Use Topics Alcohol use: Yes Alcohol/week: 7.0 standard drinks of alcohol Types: 7 5 oz of wine per week Comment: once a week Vaping/E-Cigarette Use Vaping/E-Cigarette Use Never User Vaping/E-Cigarette Substances Vaping/E-Cigarette Devices Past Surgical History: Procedure Laterality Date COLONOSCOPY, DIAGNOSTIC (RECTUM) 10/07/2012 benign polyps, diverticulosis, repeat 5 yrs/COLONOSCOPY FLEXIBLE PROXIMAL DIAGNOSTIC performed by Marc Bhat MD at ENDOSCOPY [facility] [address] COLONOSCOPY, DIAGNOSTIC (RECTUM) N/A 12/10/2017 adenomatous polyp, diverticulosis, repeat 5 yrs/COLONOSCOPY FLEXIBLE PROXIMAL DIAGNOSTIC performed by Marc Bhat MD at ENDOSCOPY [facility] COLONOSCOPY, DIAGNOSTIC (RECTUM) 06/27/2021 adenomatous polyp, diverticulosis / COLONOSCOPY FLEXIBLE PROXIMAL DIAGNOSTIC performed by Marc Bhat MD at ENDOSCOPY [facility] REMOVE CATARACT, INSERT LENS PROSTH Left 12/04/2021 REMOVE CATARACT, INSERT LENS PROSTH Right 12/25/2021 REPAIR INGUINAL HERNIA, UNDER AGE 5 Bilateral Patient Active Problem List Diagnosis HTN, goal below 140/90 Gastro-esophageal reflux disease without esophagitis Pure hypercholesterolemia COPD, group A, by GOLD 2017 classification (HCC) 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 BS normal, No masses, organomegaly, hernia RECTAL EXAM: normal seminal vesicles, no rectal masses, prostate 45 gm benign. GENITAL EXAM: MALE Testes Descended, Testes W/O Lesions, Penis W/O Lesions, Penis Circumcised, and Scrotum Normal Impression/Plan: We discussed the PSA test. It can be used as a guide for prostate health but it isnot a cancer specific test. It can be followed over time and changes such as rapid elevations may be a warning sign that requires further testing. Current recommendations are to offer screening for men under 70 and over 50. The option to screen other men is possible, but evidence may indicate that there is a more significant risk of harm. The potential harm can come from the biopsy done in response to an elevated PSA, or from the complications of treatment of less aggressive cancers discovered as a result of the PSA test. Shared decision making is the best alternative. We will observe his BPH and get a new PSA and do a flow PVR. Sean Arellano Jr, MD 1:37 PM 10/20/2023 documented in this encounter Nursing Notes * Carla Mahmood LPN - 10/20/2023 1:37 PM EDT Chief Complaint Patient presents with NEW PATIENT Pt presents as a new pt for elevated PSA. Pt gets up at night to void, states stream is slower at night. Pt has fam hx of prostate cancer, father. Denies pain or blood with urination. PSA Results: Lab Results Component Value Date/Time PSA - [facility] 4.86 (H) 10/10/2023 10:07 AM PSA - [facility] 2.81 07/19/2020 08:59 AM documented in this encounter Plan of Treatment Upcoming Encounters Date Type Department Care Team (Late st Contact Info) Description 10/21/2023 9:20 AM EDT Office Visit Family Practice [address], [place] [address] [place] [phone] Sarah Cortés DO [address] [facility], [place] [address] 05/05/2024 11:00 AM EST Office Visit Urology Adilene Christianson [address] [facility] [address] [place] [address] Sean Arellano Jr., MD [address] [place] [address] Scheduled Orders Name Type Priority Associated Diagnoses Orde r Schedule PSA Lab Routine Elevated prostate specific antigen (PSA) Expected: 04/20/2024 (Approximate), Expires: 10/19/2024 Health Maintenance Due Date Last Done Comments Alpha-1 Antitrypsin 12/22/1958 COVID-19 Vaccine ( season) 2023 02/06/2023, 04/18/2022, 08/14/2021, Additional history exists Depression Screening 02/25/2024 02/24/2023 O2 ASSESSMENT COMPLETED IN PAST YEAR FOR COPD 06/20/2024 06/20/2023 GFR 10/09/2024 10/10/2023, 10/2022, 06/10/2022, Additional history exists DTaP,Tdap,and Td Vaccines (2 - Td or Tdap) 10/31/2024 10/31/2014 Albumin/Creatinine Ratio 06/10/2025 06/10/2022, 06/27 Zoster Vaccines Completed 04/03/2020, 08/2019, 01/18/2015 Pneumococcal Vaccine: 65+ Years Completed 01/19/2021, 04/30/2016, 02/25/2007 RETIRED - COLONOSCOPY-EVERY 5 YRS AGES 18-100 Discontinued 06/27/2021, 06/27/2021, 10/08/2019, Additional history exists Influenza Vaccine (FLU shot) Completed 01/29/2023, 02/19/2022, 01/19/2021, Additional history exists GARDASIL-HPV IMMUNIZATION SERIES Aged [...] as of this encounter Visit Diagnoses Diagnosis Elevated prostate specific antigen (PSA)- Primary Renal cyst, acquired Acquired cyst of kidney BPH without obstruction/lower urinary tract symptoms Hypertrophy of prostate without urinary obstruction and other lower urinary tract symptoms (LUTS) documented in this encounter Care Teams Career Technical Education Teacher Relationship Specialty Start Date End Date Sarah Cortés DO [address] [place] [address] PCP - General Internal Medicine 10/17/23 documented as of this encounter
--- OUTSIDE RECORDS SUMMARY | 2023-12-26 00:13 | External Medical Summary ---
Author Name Unknown Address Unknown Organization [id number]:[facility] [place] [address] [facility] [address] [place] [address] Laboratory Report Ordering Provider Test Date Status DUONG LUCIO 11/28/2023 09:56:35 Final Observation Date Value Abnormality Reference (Units ) Status BUN 11/28/2023 09:56:35 14 6-20 (mg/dL) Final Creatinine 11/28/2023 09:56:35 0.7 0.6-1.2 (mg/dL) Final Glomerular filtration rate/1.73 sq M.predicted [Volume Rate/Area] in Serum, Plasma or Blood by Creatinine-based formula (CKD-EPI) 11/28/2023 09:56:35 >90 >=60 (mL/min) Final eGFR is calculated based on the CKD-EPI 2020 equation. Sodium 11/28/2023 09:56:35 136 135-146 (m mol/L) Final Potassium 11/28/2023 09:56:35 4.3 3.5-5.1 (m mol/L) Final Cl 11/28/2023 09:56:35 99 98-107 (mm ol/L) Final CO2 11/28/2023 09:56:35 29 22-32 (mmo l/L) Final Anion gap 11/28/2023 09:56:35 8 7-15 (mmol /L) Final Glucose 11/28/2023 09:56:35 104 70-120 (mg /dL) Final Calcium 11/28/2023 09:56:35 9.1 8.4-10.2 ( mg/dL) Final Performing Location [facility] [place] [address] [place] [address]
--- OUTSIDE RECORDS SUMMARY | 2023-12-26 00:13 | External Medical Summary | Summary of Care ---
Author Name Unknown Organization [facility] Address [address] [place] [address] Phone [phone] Care Team Providers Care Relations Director Name Role Phone Manuel Cortés DO Primary Care Provider [phone] Reason for Visit * Reason Onset Date Comments Test Results 10/27/202310/26 Encounter Details Date Type Department Care Team (Late st Contact Info) Description 10/27/2023 Telephone Family Practice [address], [place] [address] [place] [address] Manuel Cortés DO [address] [place] [address] Test Results (10/26) Allergies Active Allergy Reactions Criticality Noted Date Comments Bee Venom 11/18/2017 Once was stung on oyvb-zctflliw-bfg been stung since with no reaction Methocarbamol Unknown 11/18/2017 documented as of this encounter (statuses as of 10/27/2023) Medications Medication Sig Dispensed Refills Start Date [...] as of this encounter (statuses as of 10/27/2023) Active Problems Problem Noted Date Diagnosed Date BPH with obstruction/lower urinary tract symptom s 10/21/2023 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 06/20/2023 COPD, group A, by GOLD 2017 classification 07/03 Overview: Per COPD GOLD Classification HTN, goal below 140/90 12/22/2019 Gastro-esophageal reflux disease without esophag itis 12/22/2019 Pure hypercholesterolemia 12/22/2019 documented as of this encounter (statuses as of 10/27/2023) Resolved Problems Problem Noted Date Diagnosed Date Resolved Date Chronic obstructive pulmonary disease 12/22/2019 07/06/2020 Overview: Per COPD GOLD Classification documented as of this encounter (statuses as of 10/27/2023) Immunizations Name Administration Dates Next Due COVID-19 [...] encounter Miscellaneous Notes * Telephone Encounter - Yessy Huitron LPN - 10/27/2023 4:45 PM EDT Call placed to patient and relayed information from Dr. Cortés. Pt acknowledged understanding. * Telephone Encounter - Yessy Huitron LPN - 10/27/2023 4:42 PM EDT ----- Message from Manuel Cortés DO sent at 10/26/2023 3:52 PM EDT ----- Prominent but benign appearing lymph node on submandibular area. Follow for decrease in size. documented in this encounter Plan of Treatment Upcoming Encounters Date Type Department Care Team (Late st Contact Info) Description 02/04/2024 11:00 AM EDT Office Visit Family Practice [address], [place] [address] [place] [address] Manuel Cortés DO [address] [place] [address] 05/05/2024 11:00 AM EST Office Visit Urology Adilene Christianson [address] [place] [id number] Sean Arellano Jr., MD [address] [place] [address] Health Maintenance Due Date Last Done Comments Alpha-1 Antitrypsin 12/22/1958 Influenza Vaccine (FLU shot) (#1) 2023 01/29/2023, 02/19/2022, 01/19/2021, Additional history exists Depression Screening 02/25/2024 02/24/2023 GFR 10/09/2024 10/10/2023, [...] Not on filedocumented as of this encounter Care Teams Relations Director Relationship Specialty Start Date End Date Manuel Cortés DO [address] [place] [address] PCP - General Internal Medicine 10/17/23 documented as of this encounter
--- OUTSIDE RECORDS SUMMARY | 2023-12-26 00:13 | External Medical Summary | Summary of Care ---
Author Name Unknown Organization [facility] Address [address] [place] [address] Phone [phone] Care Team Providers Care Longshore Equipment Operator Name Role Phone Manuel Cortés DO Primary Care Provider [phone] Reason for Visit * Reason Comments Acute Pt here for left thomas d pain - both were swollen yesterday. It something that is on going since March. Encounter Details Date Type Department Care Team (Late st Contact Info) Description 11/28/2023 9:20 AM EDT Office Visit Family Practice [address], [place] [address] [place] [address] Charlotte Griggs, [address] [place] [address] Acute gout of left wrist, unspecified cause* Allergies Active Allergy Reactions Criticality Noted Date Comments Methocarbamol Unknown 11/18/2017 documented as of this encounter (statuses as of 11/28/2023) Medications Medication Sig Dispensed Refills Start Date [...] Active predniSONE 10 MG Oral Tablet (Deltasone)Indications:Ac [place] gout of left wrist, unspecified cause Take 5 tabs for 2 days, 4 tabs for 2 days, 3 tabs for 2 days, 2 tabs for 2 days 1 tab for 2 days 30 Tablet 4 Active documented as of this encounter (statuses as of 11/28/2023) Active Problems Problem Noted Date Diagnosed Date BPH with obstruction/lower urinary tract symptom s 10/21/2023 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 06/20/2023 COPD, group A, by GOLD 2017 classification 07/03 Overview: Per COPD GOLD Classification HTN, goal below 140/90 12/22/2019 Gastro-esophageal reflux disease without esophag itis 12/22/2019 Pure hypercholesterolemia 12/22/2019 documented as of this encounter (statuses as of 11/28/2023) Resolved Problems Problem Noted Date Diagnosed Date Resolved Date Chronic obstructive pulmonary disease 12/22/2019 07/06/2020 Overview: Per COPD GOLD Classification documented as of this encounter (statuses as of 11/28/2023) Immunizations Name Administration Dates Next Due COVID-19 [...] Sign Reading Time Taken Comments Blood Pressure 118/74 11/28/2023 9:23 AM EDT Pulse 72 11/28/2023 9:23 AM EDT Temperature 36.6 C (97.8 F) 11/28/2023 9:23 AM ED T Respiratory Rate 16 11/28/2023 9:23 AM EDT Oxygen Saturation 97% 11/28/2023 9:23 AM EDT Inhaled Oxygen Concentration - - Weight 76 kg (167 lb 8 oz) 11/28/2023 9:23 AM ED T Height 177.8 cm (5' 10") 11/28/2023 9:23 AM EDT Body Mass Index 24.03 11/28/2023 9:23 AM EDT documented in this encounter Progress Notes * Charlotte Griggs, - 11/28/2023 9:26 AM EDT SUBJECTIVE: Chief Complaint Patient presents with Acute Pt here for left hand pain - both were swollen yesterday. It something that is on going since March. HPI: Lul Mead is a 82 year old male who presents today with complaints of hand swelling. notes that this has gone on for years. He will steal his 's steroids and they will improve. He has had this 8 times since February. He will get some warmth. It will look red. Hurts to move it.It will keep him up at night. He has no history of gout but has not been checked. He was seen at and [facility] in the past. It responds to steroids quickly. PHM: Patient Active Problem List Diagnosis HTN, goal [...] needed yet. hydroCHLOROthiazide 12.5 MG Oral Capsule Take 1 Capsule by mouth in the morning. 100 Capsule 3 Potassium Chloride ER 10 MEQ Oral Capsule Extended Release Take 1 Capsule by mouth in the morning. 100 Capsule 3 Rosuvastatin Calcium 10 MG Oral Tablet (Crestor) Take 1 Tablet by mouth in the morning. 100 Tablet 3 No current facility-administered medications for this visit. Past Medical History: Diagnosis Date BPH with [...] performed by Marc Bhat MD at ENDOSCOPY [facility] COLONOSCOPY, DIAGNOSTIC (RECTUM) N/A 12/10/2017 adenomatous polyp, diverticulosis, repeat 5 yrs/COLONOSCOPY FLEXIBLE PROXIMAL DIAGNOSTIC performed by Marc Bhat MD at ENDOSCOPY [facility] COLONOSCOPY, DIAGNOSTIC (RECTUM) 06/27/2021 adenomatous polyp, diverticulosis / COLONOSCOPY FLEXIBLE PROXIMAL DIAGNOSTIC performed by Marc Bhat MD at ENDOSCOPY [facility] REMOVE CATARACT, INSERT LENS PROSTH Left 12/04/2021 REMOVE CATARACT, INSERT LENS PROSTH Right 12/25/2021 REPAIR INGUINAL HERNIA, UNDER AGE 5 Bilateral Review of patient's allergies indicates: Allergen Reactions Methocarbamol Unknown Family History Problem Relation Name Age of Onset Aortic dissection Mother Stroke Father Other (brain hemorrhage) Father Hypertension Sister Hypertension Sister Macular degeneration Sister Family Status Relation Status Mo Fa Sis Alive Sis Alive Social History Tobacco Use Smoking status: Former Current packs/day: 0.00 Average packs/day: 1 pack/day for 12.0 years (12.0 ttl pk-yrs) Types: Cigarettes Start date: 04/28/1955 Quit date: 04/28/1967 Years since quittin.6 Passive exposure: Past Smokeless tobacco: Never Substance Use Topics Alcohol use: Yes Alcohol/week: 7.0 standard drinks of alcohol Types: 7 5 oz of wine per week Comment: once a week Vaping/E-Cigarette Use Vaping/E-Cigarette Use Never User Vaping/E-Cigarette Substances Vaping/E-Cigarette Devices REVIEW OF SYSTEMS: Review of Systems Constitutional: Negative for chills, fatigue, fever and unexpected weight change. Respiratory: Negative for cough, chest tightness, shortness of breath and wheezing. Cardiovascular: Negative for chest pain, palpitations and leg swelling. Gastrointestinal: Negative for abdominal pain, constipation, diarrhea, nausea and vomiting. Musculoskeletal: Positive for arthralgias. Negative for gait problem and joint swelling. Skin: Negative for color change, pallor and rash. OBJECTIVE: BP 118/74 (BP Site: Left Arm, BP Position: Sitting) | Pulse 72 | Temp 36.6 C (97.8 F) | Resp 16| Ht 1.778 m (5' 10") | Wt 76 kg (167 lb 8 oz) | SpO2 97% | BMI 24.03 kg/m | BSA 1.94 m PHYSICAL EXAM: Physical Exam Constitutional: General: He is not in acute distress. Appearance: He is well-developed. Cardiovascular: Rate and Rhythm: Normal rate and regular rhythm. Heart sounds: Normal heart sounds. No murmur heard. No friction rub. No gallop. Pulmonary: Effort: Pulmonary effort is normal. No respiratory distress. Breath sounds: Normal breath sounds. No wheezing or rales. Abdominal: General: Bowel sounds are normal. There is no distension. Palpations: Abdomen is soft. Tenderness: There is no abdominal tenderness. There is no guarding. Musculoskeletal: General: Tenderness (left wrist) present. No deformity. Comments: Pain with any ROM of left wrist Skin: General: Skin is warm and dry. Coloration: Skin is not pale. Findings: Erythema (with some warmth and swelling of right wrist) present. No rash. Neurological: Mental Status: He is alert and oriented to person, place, and time. ASSESSMENT/PLAN: (M10.9) Acute gout of left wrist, unspecified cause (primary encounter diagnosis) Plan: URIC ACID, BASIC METABOLIC PANEL, predniSONE 10 MG Oral Tablet (Deltasone) Will check lab studies today. Start course of prednisone. Given information on low purine diet. Follow-up: as scheduled with PCP Total time today including reviewing chart before the visit, pertinent labs, imaging reports, face to face time, and documentation time was 31 minutes. Charlotte Griggs DO documented in this encounter Nursing Notes * Sully Lloyd CCMA - 11/28/2023 9:23 AM EDT Chief Complaint Patient presents with Acute Pt here for left hand pain - both were swollen yesterday. It something that is on going since March. documented in this encounter Plan of Treatment Upcoming Encounters Date Type Department Care Team (Late st Contact Info) Description 02/04/2024 11:00 AM EDT Office Visit Family Practice [address], [place] [address] [place] [address] Manuel Cortés DO [address] [place] [address] 05/05/2024 11:00 AM EST Office Visit Urology Adilene Christianson [address] [place] [address] Sean Arellano Jr., MD [address] [place] [address] Pending Results Name Type Priority Associated Diagnoses Date /Time URIC ACID Lab Routine Acute gout of left wrist, unspecified cause 11/28/2023 9:56 AM EDT BASIC METABOLIC PANEL Lab Routine Acute gout of left wrist, unspecified cause 11/28/2023 9:56 AM EDT Scheduled Orders Name Type Priority Associated Diagnoses Orde r Schedule URIC ACID Lab Routine Acute gout of left wrist, unspecified cause Expected: 11/28/2023 (Approximate), Expires: 11/27/2024 BASIC METABOLIC PANEL Lab Routine Acute gout of left wrist, unspecified cause Expected: 11/28/2023 (Approximate), Expires: 11/27/2024 Health Maintenance Due Date Last Done Comments Alpha-1 Antitrypsin 12/22/1958 Influenza Vaccine (FLU shot) (#1) 2023 01/29/2023, 02/19/2022, 01/19/2021, Additional history exists Depression Screening 02/25/2024 02/24/2023 GFR 10/09/2024 10/10/2023, 10/2022, 06/10/2022, Additional history exists DTaP,Tdap,and Td Vaccines (2 - Td or Tdap) 10/31/2024 10/31/2014 O2 ASSESSMENT COMPLETED IN PAST YEAR FOR [...] Primary documented in this encounter Care Teams Longshore Equipment Operator Relationship Specialty Start Date End Date Manuel Cortés DO [address] [facility] [place] [address] PCP - General Internal Medicine 10/17/23 documented as of this encounter
--- OUTSIDE RECORDS SUMMARY | 2023-12-26 00:13 | External Medical Summary | Summary of Care ---
Author Name Unknown Organization [facility] Address [address] [place] [address] Phone [phone] Care Team Providers Care Gastroenterology Technician Name Role Phone Manuel Cortés DO Primary Care Provider [phone] Reason for Referral * Evaluate & Treat - Unlimited Visits (Within 10 days (routine)) - Authorized Specialty Diagnoses / Procedures Referred By Maria Elena patel Referred To Contact Urology Diagnoses Elevated prostate specific antigen (PSA) Manuel Cortés DO [address] [place] [address] Referral ID Status Reason Start Date Expiration Date Visits Requested Visits Authorized [id number] Authorized Specialty Services Required 10/13/[phone] Question Answer Referral Priority Within 10 days (routine) Where should this appointment be scheduled? Paulo What is the patient being referred for? Elevated PSA Reason for Visit * Reason Onset Date Comments Test Results 10/13/202310/12 Encounter Details Date Type Department Care Team (Late st Contact Info) Description 10/13/2023 Telephone Family Practice 65 [facility] [place] [address] [place] [phone] Manuel Cortés DO [address] [place] [address] Test Results (10/12) Allergies Active Allergy Reactions Criticality Noted Date Comments Bee Venom 11/18/2017 Once was stung on jsiv-iuduhkzg-ohs been stung since with no reaction Methocarbamol Unknown 11/18/2017 documented as of this encounter (statuses as of 10/13/2023) Medications Medication Sig Dispensed Refills Start Date [...] as of this encounter (statuses as of 10/13/2023) Active Problems Problem Noted Date Diagnosed Date 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 06/20/2023 COPD, group A, by GOLD 2017 classification 07/03 Overview: Per COPD GOLD Classification HTN, goal below 140/90 12/22/2019 Gastro-esophageal reflux disease without esophag itis 12/22/2019 Pure hypercholesterolemia 12/22/2019 documented as of this encounter (statuses as of 10/13/2023) Resolved Problems Problem Noted Date Diagnosed Date Resolved Date Chronic obstructive pulmonary disease 12/22/2019 07/06/2020 Overview: Per COPD GOLD Classification documented as of this encounter (statuses as of 10/13/2023) Immunizations Name Administration Dates Next Due COVID-19 [...] money to get more. Never true 02/24/2023 Sex and Gender Information Value Date Recorded Sex Assigned at Male 03/27/2021 2:09 PM EST Gender Identity Male 03/27/2021 2:09 PM EST Sexual Orientation Straight 03/27/2021 2: 09 PM EST Job Start Date Occupation Industry Not on file Not on file Not on file documented as of this encounter Miscellaneous Notes * Telephone Encounter - Zita Rizo OSA - 10/13/2023 4:21 PM EDT Pt aware and agreeable to appt date/time/LOCATION * Telephone Encounter - Zita Rizo OSA - 10/13/2023 1:43 PM EDT Appt scheduled 10.19.24 in [facility] to advise patient of appt and location. * Telephone Encounter - Manuel Cortés DO - 10/13/2023 1:37 PM EDT Referral signed. Schedule with Urology. * Telephone Encounter - Yessy Huitron LPN - 10/13/2023 12:50 PM EDT Call placed to patient and relayed information from Dr. Cortés. Pt acknowledged understanding. Agreeable to Urology referral. Referral pended. desk maker - please assist with scheduling after referral is signed. Thank you * Telephone Encounter - Yessy Huitron LPN - 10/13/2023 12:47 PM EDT ----- Message from Manuel Cortés DO sent at 10/11/2023 7:34 AM EDT ----- PSA is up. Cholesterol is up. All other labs are normal. Refer to Urology for elevated PSA. documented in this encounter Plan of Treatment Upcoming Encounters Date Type Department Care Team (Late st Contact Info) Description 10/20/2023 2:00 PM EDT Office Visit Urology Adilene Christianson [address] [facility] [address] [place] [address] Sean Arellano Jr., MD [address] [facility] [address] [place] [place] [address] 10/21/2023 9:20 AM EDT Office Visit Family Practice 65 [facility] [place] [address] [place] [address] Manuel Cortés DO 293 [place] [address] Scheduled Referrals Name Type Priority Associated Diagnoses Orde r Schedule ADULT/PEDS UROLOGY REFERRAL OP Referral Within 10 days (routine) Elevated prostate specific antigen (PSA) Ordered: 10/13/2023 Health Maintenance Due Date Last Done Comments Alpha-1 Antitrypsin 12/22/1958 COVID-19 Vaccine (2022- season) 2023 02/06/2023, 04/18/2022, 08/14/2021, Additional history [...] Diagnosis Elevated prostate specific antigen (PSA)- Primary documented in this encounter Care Teams Gastroenterology Technician Relationship Specialty Start Date End Date Manuel Cortés DO PCP - General Internal Medicine 03/27/21 documented as of this encounter
--- OUTSIDE RECORDS SUMMARY | 2023-12-26 00:13 | External Medical Summary | Summary of Care ---
Author Name Unknown Organization [facility] Address [address] [place] [address] Phone [phone] Care Team Providers Care Manufacturing Manager Name Role Phone Manuel Cortés DO Primary Care Provider [phone] Reason for Visit * Reason Comments Follow Up Encounter Details Date Type Department Care Team (Latest Contact Info) Description 10/21/2023 9:20 AM EDT Office Visit Family Practice 65 [facility] [address] [place] [address] Manuel Cortés DO [address] [place] [address] HTN, goal below 140/90*; COPD, group A, by GOLD 2017 classification (HCC); Gastro-esophageal reflux disease without esophagitis; Pure hypercholesterolemia; BPH with obstruction/lower urinary tract symptoms; Submandibular swelling Allergies Active Allergy Reactions Criticality Noted Date Comments Bee Venom 11/18/2017 Once was stung on xotu-exoojimx-rxj been stung since with no reaction Methocarbamol [...] performed by Marc Bhat MD at END[facility]COPY [facility] COLONOSCOPY, DIAGNOSTIC (RECTUM) N/A 12/10/2017 adenomatous polyp, diverticulosis, repeat 5 yrs/COLONOSCOPY FLEXIBLE PROXIMAL DIAGNOSTIC performed by Marc Bhat MD at ENDOSCOPY [facility] COLONOSCOPY, DIAGNOSTIC (RECTUM) 06/27/2021 adenomatous polyp, diverticulosis / COLONOSCOPY FLEXIBLE PROXIMAL DIAGNOSTIC performed by Marc hBat MD at ENDOSCOPY [facility] REMOVE CATARACT, INSERT LENS PROSTH Left 12/04/2021 REMOVE CATARACT, INSERT LENS PROSTH Right 12/25/2021 REPAIR INGUINAL HERNIA, UNDER AGE 5 Bilateral Review of patient's allergies indicates: Allergen Reactions Bee Venom Once was stung on rbsy-rbqnaoab-ksz been stung since with no reaction Methocarbamol [...] PF, 23-24, 30MCG/0.3ML, IM, 12YRS AND ABOVE ([employer]) Follow Up: Return in about 4 months [...] Description 10/23/2023 11:15 AM EDT Imaging Radiology [facility] [address] [place] [address] 02/04/2024 11:00 AM EDT Office Visit Family Practice 65 [facility] [address] [place] [address] Manuel Cortés DO [facility] [address] 05/05/2024 11:00 AM EST Office Visit Urology Adilene Christianson [address] [place] [address] [place] [address] Sean Arellano Jr., MD [address] [place] [address] [place] [address] Scheduled Orders Name Type Priority Associated Diagnoses [...] neck documented in this encounter Care Teams Manufacturing Manager Relationship Specialty Start Date End Date Manuel Cortés DO [address] [place] [address] PCP - General Internal Medicine 10/17/23 documented as of this encounter"
--- OUTSIDE RECORDS SUMMARY | 2023-12-26 00:13 | External Medical Summary | Summary of Care ---
Author Name Unknown Organization [facility] Address [address] [place] [address] Phone [phone] Care Team Providers Care Merchandiser Seasonal Name Role Phone Manuel Cortés DO Primary Care Provider [phone] Reason for Visit * Reason Onset Date Comments Appointment 11/28/2023 Acute request Encounter Details Date Type Department Care Team (Late st Contact Info) Description 11/28/2023 Telephone Family Practice 65 [facility] [place] [address] [place] [address] Manuel Cortés DO [address] [place] [address] Appointment (Acute request) Allergies Active Allergy Reactions Criticality Noted Date Comments Bee Venom 11/18/2017 Once was stung on gaml-fsgqxcmf-yzw been stung since with no reaction Methocarbamol [...] MCG/0.3 mL, 12 YRS AND ABOVE, IM (to be-Comirnaty) 10/21/2023 COVID-19, MRNA-LNP, 23-24, P F, 49 [...] Telephone Encounter - Zita Rizo OSA - 11/28/2023 8:46 AM EDT Appt scheduled * Telephone Encounter - Charlotte Griggs DO - 11/28/2023 8:39 AM EDT Noted. * Telephone Encounter - Yessy Huitron LPN - 11/28/2023 8:22 AM EDT Call placed to patient - reports periodically both hands swell and are painful keeping him awake atnight. States he took some of his 's steroids in the past and it went away in a couple of hours. States sometimes it is both hands, but most of the times it is is right hand. Reports he has developed symptoms in both hands again and notes redness, swelling around both wrists, warm to touch. States swelling on top of hands where wrist meets the hand. States pain kept him awake last night. Agreeable to OV with Dr. Griggs today. help desk associate - please place on schedule at 9:20 today - pt is aware. Thank you * Telephone Encounter - Zita Rizo OSA - 11/28/2023 8:10 AM EDT Pt calling to request an appt. Pt states he has bilateral hand pain, keeping him up at times. States this comes and goes, started approx a year ago. He wanted to see PCP today as he has the pain. PCP not in office. Please advise. documented in this encounter Plan of Treatment Upcoming Encounters Date Type Department Care Team (Late st Contact Info) Description 11/28/2023 9:20 AM EDT Office Visit Family Practice 65 [facility] [address] [place] [phone] Charlotte Griggs, DO [address] [place] [address] 02/04/2024 11:00 AM EDT Office Visit [facility] Practice 65 [facility] [address] [place] [phone] Manuel Cortés, DO 293 [place] [address] 05/05/2024 11:00 AM EST Office Visit Urology Adilene Christianson [address] [facility] [address] [address] Sean Arellano Jr., MD [address] [place] [address] Health Maintenance Due Date Last Done Comments [...] filedocumented as of this encounter Care Teams Merchandiser Seasonal Relationship Specialty Start Date End Date Manuel Cortés DO [address] [place] [address] PCP - General Internal Medicine 10/17/23 documented as of this encounter
--- OUTSIDE RECORDS SUMMARY | 2023-12-26 00:13 | External Medical Summary ---
Author Name Unknown Address Unknown Organization [id number]:[facility] [address] [facility] [address] Laboratory Report Ordering Provider Test Date Status DUONG LUCIO 11/28/2023 09:56:35 Final Observation Date Value Abnormality Reference (Units ) Status Uric Acid 11/28/2023 09:56:35 5.2 3.4-7.0 (m g/dL) Final Performing Location [facility] [address] [facility] [address]
--- OUTSIDE RECORDS SUMMARY | 2023-12-26 00:13 | External Medical Summary | Summary of Care ---
Author Name Unknown Organization [facility] Address [address] [place] [address] Phone [phone] Care Team Providers Care Leather Patcher Name Role Phone Manuel Cortés DO Primary Care Provider [phone] Reason for Visit * Reason Comments Medication Management Encounter Details Date Type Department Care Team (Late st Contact Info) Description 10/21/2023 9:40 AM EDT Telemedicine Family Practice [address] [phone] College, Pharmacist [address] [address] Medication management* Allergies Active Allergy Reactions Criticality Noted Date Comments Bee Venom 11/18/2017 Once was stung on ohim-tbyhzyaf-eil been stung since with no reaction Methocarbamol [...] MCG/0.3 mL, 12 YRS AND ABOVE, IM ([employer]-Comirnaty) 10/21/2023 COVID-19, MRNA-LNP, 23-24, P F, 49 [...] as of this encounter Progress Notes * Susan Lima, [facility] - 10/21/2023 9:27 AM EDT Medication Therapy Disease Management Clinic - Medication Review Med Rec Reason: Annual Prescription insurance information: MARTY Curran Do you have any other prescription coverage: No Preferred pharmacy: [facility] ([facility]) [x] Problem list reviewed [x] Allergies reviewed and updated if needed [x] Drug interaction check completed [x] HEDIS list addressed Immunizations: got COVID vaccine today Labs/Vitals/Risk Scores: The ASCVD Risk score (Mio ROSENTHAL, et al., 2019) failed to calculate for the following reasons: The 2019 ASCVD risk score is only valid for ages 40 to 79 BP Readings from Last 3 Encounters: 10/21/23 140/90 06/20/23 120/74 04/10/23 140/72 No results for input(s): "HGBA1C" in the last 52674 hours. Recent Labs Units 10/10/23 1007 04/03/23 1004 06/10/22 1226 ESTIMATED GLOMERULAR FILTRATION RATE - [facility] mL/min 86 89 90 Serum creatinine: 0.9 mg/dL 10/10/23 1007 Estimated creatinine clearance: 64.2 mL/min Assessment & Plan: Medication discrepancies identified: - patient hasn't filled lisinopril since January - discussed with PCP. Patient reports he's taking. Dose/frequency of medications appropriate for current renal function? yes Other medication problems identified: - Lipids elevated - LDL 140 (goal < 130). Discussed benefits of starting statin with PCP. Patient agreeable. - Patient noted difficulty swallowing some pills. Likely potassium - could get tablets and have himdissolve them in water if desired if this continues to be a problem. - BP elevated today, advised to repeat. Referral pended for follow up management of: N/A Summary- Changes & Recommendations: Med review completed. Recommended statin to PCP; patient agreeable. Susan Poole [facility] Clinical Pharmacist - News Producer Medication Therapy Management Clinic 10/21/2023, 9:27 AM documented in this encounter Plan of Treatment Upcoming Encounters Date Type Department Care Team (Late st Contact Info) Description 10/23/2023 11:15 AM EDT Imaging Radiology [facility] [address] [place] [address] 02/04/2024 11:00 AM EDT Office Visit Family Practice [address] [place] [address] 293 [place] [address] Manuel Cortés, [address] [place] [address] 05/05/2024 11:00 AM EST Office Visit Urology Adilene Christianson [address] [place] [address] [place] [address] Sean Arellano Jr., MD [address] [place] [address] [place] [address] Health Maintenance Due Date Last Done Comments Alpha-1 Antitrypsin 12/22/1958 Depression Screening 02/25/2024 02/24/2023 GFR 10/09/2024 10/10/2023, 12/0 10/2022, 06/10/2022, Additional history exists O2 ASSESSMENT [...] as of this encounter Visit Diagnoses Diagnosis Medication management- Primary Encounter for long-term (current) use of other medications documented in this encounter Care Teams Leather Patcher Relationship Specialty Start Date End Date Manuel Cortés DO [address] [place] [address] PCP - General Internal Medicine 10/17/23 documented as of this encounter
--- OUTSIDE RECORDS SUMMARY | 2023-12-26 00:13 | External Medical Summary | Summary of Care ---
Author Name Unknown Organization [facility] Address [address] [place] [address] Phone [phone] Care Team Providers Care Tailoring Teacher Name Role Phone Manuel Cortés DO Primary Care Provider [phone] Reason for Visit * Reason Onset Date Comments Test Results 12/03/202312/02 Encounter Details Date Type Department Care Team (Late st Contact Info) Description 12/03/2023 Telephone Family Practice [address] [place] [address] [place] [phone] Charlotte Griggs DO [address] [place], [place] [phone] Test Results (12/02) Allergies Active Allergy Reactions Criticality Noted Date Comments Methocarbamol Unknown 11/18/2017 documented as of this encounter (statuses as of 12/03/2023) Medications Medication Sig Dispensed Refills Start Date [...] as of this encounter (statuses as of 12/03/2023) Active Problems Problem Noted Date Diagnosed Date BPH with obstruction/lower urinary tract symptom s 10/21/2023 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 06/20/2023 COPD, group A, by GOLD 2017 classification 07/03 Overview: Per COPD GOLD Classification HTN, goal below 140/90 12/22/2019 Gastro-esophageal reflux disease without esophag itis 12/22/2019 Pure hypercholesterolemia 12/22/2019 documented as of this encounter (statuses as of 12/03/2023) Resolved Problems Problem Noted Date Diagnosed Date Resolved Date Chronic obstructive pulmonary disease 12/22/2019 07/06/2020 Overview: Per COPD GOLD Classification documented as of this encounter (statuses as of 12/03/2023) Immunizations Name Administration Dates Next Due COVID-19 [...] 2:09 PM EST Sexual Orientation Straight 03/27/2021 2 :09 PM EST Job Start Date Occupation Industry Not on file Not on file Not on file documented as of this encounter Miscellaneous Notes * Telephone Encounter - Manuel Cortés DO [...] answer. Message left to return call to [phone]. * Telephone Encounter - Charlotte Griggs DO [...] EDT Office Visit Family Practice [address], [address] [place] [address] Manuel Cortés, DO [address] [place] [address] 05/05/2024 11:00 AM EST Office Visit Urology [facility] [place] [address] [place] [address] Sean Arellano Jr., MD [address] [id number] Scheduled Orders Name Type Priority Associated Diagnoses [...] Primary documented in this encounter Care Teams Tailoring Teacher Relationship Specialty Start Date End Date Manuel Cortés DO [address] [place] [address] PCP - General Internal Medicine 10/17/23 documented as of this encounter
--- OUTSIDE RECORDS SUMMARY | 2023-12-26 00:13 | External Medical Summary | Summary of Care ---
Author Name Unknown Organization [facility] Address [address] [place] [address] Phone [phone] Care Team Providers Care Sticker Operator Name Role Phone Manuel Cortés DO Primary Care Provider [phone] Reason for Visit * Reason Onset Date Comments Appointment 11/28/2023 Acute request Encounter Details Date Type Department Care Team (Late st Contact Info) Description 11/28/2023 Telephone Family Practice 65 [facility] [place] [address] [place] [address] Manuel Cortés DO [address] [place] [address] Appointment (Acute request) Allergies Active Allergy Reactions Criticality Noted Date Comments Bee Venom 11/18/2017 Once was stung on dktq-jmuittlt-kdi been stung since with no reaction Methocarbamol [...] MCG/0.3 mL, 12 YRS AND ABOVE, IM (Venuemob-Comirnaty) 10/21/2023 COVID-19, MRNA-LNP, 23-24, P F, 49 [...] Agreeable to OV with Dr. Griggs today. table and desk finisher - please place on schedule at 9:20 [...] AM EDT Office Visit Family Practice 65 [facility] 293 [place] [phone] Charlotte Griggs, DO [address] [place] [address] 02/04/2024 11:00 AM EDT [facility] 65 [facility] [address] [place] [phone] Manuel Cortés, DO [address] [place] [address] 05/05/2024 11:00 AM EST Office Visit Urology Adilene Christianson [address] [facility] [address] [address] Sean Arellano Jr., MD [address] [place] [address] Health Maintenance Due Date Last Done Comments [...] filedocumented as of this encounter Care Teams Sticker Operator Relationship Specialty Start Date End Date Manuel Cortés DO [address] [place] [address] PCP - General Internal Medicine 10/17/23 documented as of this encounter
--- OUTSIDE RECORDS SUMMARY | 2023-12-26 00:14 | External Medical Summary ---
Author Name Unknown Address Unknown Organization [id number]:[facility] - [address] [facility] [address] Laboratory Report Ordering Provider Test Date Status VIOLA SMITH 10/10/2023 10:07:10 Final Observation Date Value Abnormality Reference (Units ) Status PSA 10/10/2023 10:07:10 4.86 Above high normal <4 .10 (ng/mL) Final Performing Location [facility] - [address] [facility] [address]
--- OUTSIDE RECORDS SUMMARY | 2023-12-26 00:14 | External Medical Summary ---
Author Name Unknown Address Unknown Organization K09:[facility] [place] [address] Laboratory Report Ordering Provider Test Date Status VIOLA SMITH 10/10/2023 10:07:10 Final Observation Date Value Abnormality Reference (Units ) Status WBC, Total 10/10/2023 10:07:10 4.87 4.00-10.8 0 (K/uL) Final RBC 10/10/2023 10:07:10 4.61 4.50-5.25 (M/uL) Final Hemoglobin 10/10/2023 10:07:10 14.7 14.0-16.8 (g/dL) Final HCT 10/10/2023 10:07:10 44.7 40.0-48.4 (%) Final MCV 10/10/2023 10:07:10 97.0 82.0-99.5 (fL) Final MCH 10/10/2023 10:07:10 31.9 27.0-34.0 (pg) Final MCHC 10/10/2023 10:07:10 32.9 32.0-36.0 (g/dL) Final RDW 10/10/2023 10:07:10 12.9 11.5-15.5 (%) Final Platelets 10/10/2023 10:07:10 215 140-400 (K /uL) Final MPV 10/10/2023 10:07:10 9.8 6.6-11.1 ( fL) Final Performing Location [facility] [place] [address]
--- OUTSIDE RECORDS SUMMARY | 2023-12-26 00:14 | External Medical Summary ---
Author Name Unknown Address Unknown Organization K01:[facility] - [address] [facility] [place] [address] Laboratory Report Ordering Provider Test Date Status VIOLA SMITH 10/10/2023 10:07:10 Final Observation Date Value Abnormality Reference (Units ) Status Triglyceride 10/10/2023 10:07:10 65 <=174 ( mg/dL) Final Triglyceride Reference Range s (mg/dL):
<150 Acceptable
150-174 Borderline high
175-499 High
>=500 Very high Cholesterol 10/10/2023 10:07:10 254 Above high normal <200 (mg/dL) Final Total Cholesterol Reference Ranges (mg/dL):
<200 Desirable
200-239 Borderline high
>=240 High HDL 10/10/2023 10:07:10 100 >39 (mg/dL ) Final HDL Cholesterol Reference Ra nges (mg/dL):
>=60 High (Desirable)
<50 Low (Undesirable) For Females
<40 Low (Undesirable) For Males NON-HDL CHOLESTEROL 10/10/2023 10:07:10 154 <=159 (mg/dL) Final Non-HDL Cholesterol Referenc e Range (mg/dL):
<100 Target level for high risk ASCVD patient
<130 Optimal for general population
130-159 Near optimal for general population
160-189 Borderline High
190-219 High
>=220 Very High LDL, (calculated) 10/10/2023 10:07:10 141 Above high n ormal <=129 (mg/dL) Final LDL Cholesterol Reference Ra nges (mg/dL):
<70 Target level for high risk ASCVD patient
<100 Optimal for general population
100-129 Near optimal for general population
130-159 Borderline high
160-189 High
>=190 Very high Performing Location LABORATORY [facility] - [address] [facility] [address]
--- OUTSIDE RECORDS SUMMARY | 2023-12-26 00:14 | External Medical Summary ---
Author Name Unknown Address Unknown Organization K09:[facility] [address] Laboratory Report Ordering Provider Test Date Status VIOLA SMITH 10/10/2023 10:07:10 Final Observation Date Value Abnormality Reference (Units ) Status SYNC LEUKOCYTES IN BLOOD BY AUTOMATED COUNT 10/10/2023 10:07:10 4.87 4.00-10.80 (K/uL) Final Segs 10/10/2023 10:07:10 53.3 40.0-75.0 (%) Final Lymphs % 10/10/2023 10:07:10 33.3 18.0-42.0 (%) Final Monos 10/10/2023 10:07:10 9.9 1.0-11.0 (%) Final Eosinophils 10/10/2023 10:07:10 2.5 0.0-6.0 (%) Final Basos 10/10/2023 10:07:10 1.0 0.0-2.0 (%) Final Absolute Segs 10/10/2023 10:07:10 2.60 1.80-7.70 (K/uL) Final Lymphs, absolute 10/10/2023 10:07:10 1.62 1.00-4.80 (K/ul) Final Monos, Abs 10/10/2023 10:07:10 0.48 0.00-1.10 (K/uL) Final Eos, Abs 10/10/2023 10:07:10 0.12 0.00-0.70 (K/uL) Final Basos, Abs 10/10/2023 10:07:10 0.05 0.00-0.20 (K/uL) Final Performing Location [facility] [address]
--- OUTSIDE RECORDS SUMMARY | 2023-12-26 00:14 | External Medical Summary ---
Author Name Unknown Address Unknown Organization [facility] [address] [place] [address] Laboratory Report Ordering Provider Test Date Status VIOLA SMITH 10/10/2023 10:07:10 Final Observation Date Value Abnormality Reference (Units ) Status BUN 10/10/2023 10:07:10 16 6-20 (mg/dL) Final Creatinine 10/10/2023 10:07:10 0.9 0.6-1.2 (mg/dL) Final Glomerular filtration rate/1.73 sq M.predicted [Volume Rate/Area] in Serum, Plasma or Blood by Creatinine-based formula (CKD-EPI) 10/10/2023 10:07:10 86 >=60 (mL/min) Final eGFR is calculated based on the CKD-EPI 2020 equation Sodium 10/10/2023 10:07:10 141 135-146 (m mol/L) Final Potassium 10/10/2023 10:07:10 4.4 3.5-5.1 (m mol/L) Final Cl 10/10/2023 10:07:10 101 98-107 (mm ol/L) Final CO2 10/10/2023 10:07:10 28 22-32 (mmo l/L) Final Anion gap 10/10/2023 10:07:10 12 7-15 (mmol /L) Final Glucose 10/10/2023 10:07:10 91 70-120 (mg /dL) Final Albumin 10/10/2023 10:07:10 4.1 3.8-5.0 (g /dL) Final AST (Aspartate aminotransferase) 10/10/2023 10:07:10 21 10-50 (U/L) Final Alk Phos 10/10/2023 10:07:10 85 35-130 (U/ L) Final Bilirubin, Total 10/10/2023 10:07:10 0.6 <=1 .2 (mg/dL) Final Calcium 10/10/2023 10:07:10 9.4 8.4-10.2 ( mg/dL) Final Protein 10/10/2023 10:07:10 6.8 6.0-8.3 (g /dL) Final ALT (Alanine aminotransferase) 10/10/2023 10:07:10 14 10-50 (U/L) Final Performing Location [facility] [address] [place] [address]
--- OUTSIDE RECORDS SUMMARY | 2023-12-26 00:14 | External Medical Summary | Summary of Care ---
Author Name Unknown Organization [facility] Address [address] [place] [address] Phone [phone] Care Team Providers Care Correspondence Dictator Name Role Phone Manuel Cortés DO Primary Care Provider [phone] Reason for Visit * Reason Comments Outpatient Testing Encounter Details Date Type Department Care Team (Latest Contact Info) Description 10/10/2023 11:30 AM EDT Laboratory [facility] [place] [address] [place] [address] [place] [address] [place] [address] Special screening for malignant neoplasm of prostate; HTN, goal below 140/90; Pure hypercholesterolemia Allergies Active Allergy Reactions Criticality Noted Date Comments Bee Venom 11/18/2017 Once was stung on sehx-etjglnhl-zjl been stung since with no reaction Methocarbamol Unknown 11/18/2017 documented as of this encounter (statuses as of 10/10/2023) Medications Medication Sig Dispensed Refills Start Date [...] as of this encounter (statuses as of 10/10/2023) Active Problems Problem Noted Date Diagnosed Date 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 06/20/2023 COPD, group A, by GOLD 2017 classification 07/03 Overview: Per COPD GOLD Classification HTN, goal below 140/90 12/22/2019 Gastro-esophageal reflux disease without esophag itis 12/22/2019 Pure hypercholesterolemia 12/22/2019 documented as of this encounter (statuses as of 10/10/2023) Resolved Problems Problem Noted Date Diagnosed Date Resolved Date Chronic obstructive pulmonary disease 12/22/2019 07/06/2020 Overview: Per COPD GOLD Classification documented as of this encounter (statuses as of 10/10/2023) Immunizations Name Administration Dates Next Due COVID-19 [...] on file documented as of this encounter Plan of Treatment Upcoming Encounters Date Type Department Care Team (Late st Contact Info) Description 10/21/2023 9:20 AM EDT Office Visit Family Practice [address] [place] [address] [place] [id number] Manuel Cortés, [address] [place] [address] Pending Results Name Type Priority Associated Diagnoses Date /Time PSA Lab Routine Special screening for malignant neoplasm of prostate 10/10/2023 10:07 AM EDT COMPREHENSIVE METABOLIC PANEL Lab Routine HTN, goal below 140/90 10/10/2023 10:07 AM EDT LIPID PANEL WITH DIRECT LDL IF TG IS HIGH Lab Routine Pure hypercholesterolemia 10/10/2023 10:07 AM EDT Health Maintenance Due Date Last Done Comments Alpha-1 Antitrypsin 12/22/1958 COVID-19 Vaccine ( season) 2023 02/06/2023, 04/18/2022, 08/14/2021, Additional history exists Depression Screening 02/25/2024 02/24/2023 GFR 04/03/2024 04/03/2023, 05/29, 05/10/2021, Additional history exists O2 ASSESSMENT COMPLETED IN PAST YEAR FOR COPD 06/20/2024 06/20/2023 DTaP,Tdap,and Td Vaccines (2 - Td or [...] Not on filedocumented as of this encounter Procedures Procedure Name Priority Date/Time Associated Diagnosis Comments DIFFERENTIAL, AUTOMATED Routine 10/10/2023 10:07 AM EDT HTN, goal below 140/90 CBC Routine 10/10/2023 10:07 AM EDT HTN, goal below 140/90 CBC Routine 10/10/2023 10:07 AM EDT HTN, goal below 140/90 documented in this encounter Results * DIFFERENTIAL, AUTOMATED (10/10/2023 10:07 AM EDT) WBC 4.87 4.00 - 10.80 K/uL 10/10/2023 10:15 AM EDT [facility] Neutrophils % 53.3 40.0 - 75.0 % 10/10/2023 10:15 AM EDT [facility] Lymphocytes % 33.3 18.0 - 42.0 % 10/10/2023 10:15 AM EDT [facility] Monocytes % 9.9 1.0 - 11.0 % 10/10/2023 10:15 AM EDT [facility] Eosinophils % 2.5 0.0 - 6.0 % 10/10/2023 10:15 AM EDT [facility] Basophils % 1.0 0.0 - 2.0 % 10/10/2023 10:15 AM EDT [facility] 56 Absolute Neutrophils 2.60 1.80 - 7.70 K/uL 10/10/2023 10:15 AM EDT [facility] 56 Absolute Lymphocytes 1.62 1.00 - 4.80 K/ul 10/10/2023 10:15 AM EDT [facility] 56 Absolute Monocytes 0.48 0.00 - 1.10 K/uL 10/10/2023 10:15 AM EDT [facility] 56 Absolute Eosinophils 0.12 0.00 - 0.70 K/uL 10/10/2023 10:15 AM EDT [facility] 56 Absolute Basophils 0.05 0.00 - 0.20 K/uL 10/10/2023 10:15 AM EDT [facility] 56 Blood Venous blood specimen / Unknown Venipuncture / Unknown 10/10/2023 10:07 AM EDT 10/10/2023 10:07 AM EDT Manuel Cortés DO LAB BLOOD ORDERABLES [facility] [address] [place] [address] * CBC (10/10/2023 10:07 AM EDT) WBC 4.87 4.00 - 10.80 K/uL 10/10/2023 10:15 AM EDT [facility] RBC 4.61 4.50 - 5.25 M/uL 10/10/2023 10:15 AM EDT [facility] 56 HGB 14.7 14.0 - 16.8 g/dL 10/10/2023 10:15 AM EDT [facility] 56 HCT 44.7 40.0 - 48.4 % 10/10/2023 10:15 AM EDT [facility] MCV 97.0 82.0 - 99.5 fL 10/10/2023 10:15 AM EDT [facility] 56 MCH 31.9 27.0 - 34.0 pg 10/10/2023 10:15 AM EDT [facility] MCHC 32.9 32.0 - 36.0 g/dL 10/10/2023 10:15 AM EDT [facility] 56 RDW 12.9 11.5 - 15.5 % 10/10/2023 10:15 AM EDT [facility] 56 PLT 215 140 - 400 K/uL 10/10/2023 10:15 AM EDT [facility] 56 MPV 9.8 6.6 - 11.1 fL 10/10/2023 10:15 AM EDT [facility] 56 Blood Venous blood specimen / Unknown Venipuncture / Unknown 10/10/2023 10:07 AM EDT 10/10/2023 10:07 AM EDT Manuel Cortés DO LAB BLOOD ORDERABLES [facility] [address] [place] [address] documented in this encounter Visit Diagnoses Diagnosis Special screening for malignant neoplasm of prostate HTN, goal below 140/90 Unspecified essential hypertension Pure hypercholesterolemia documented in this encounter Care Teams Correspondence Dictator Relationship Specialty Start Date End Date Manuel Cortés DO PCP - General Internal Medicine 03/27/21 documented as of this encounter
--- OUTSIDE RECORDS SUMMARY | 2023-12-26 00:14 | External Medical Summary | Summary of Care ---
Author Name Unknown Organization [facility] Address [address] [place] [address] Phone [phone] Care Team Providers Care Natural Gas Shothole Driller Name Role Phone Manuel Cortés DO Primary Care Provider [phone] Reason for Visit * Reason Onset Date Comments Forms Request 07/10/2023 [employer] - statement of drivers physical condition Encounter Details Date Type Department Care Team (Late st Contact Info) Description 07/10/2023 Telephone Family Practice [address] [facility] [place] [address] Manuel Cortés DO [address] [place], [place] [id number] Forms Request ([employer] - [facility]... Allergies Active Allergy Reactions Criticality Noted Date Comments Bee Venom 11/18/2017 Once was stung on vilw-mkmlwuvg-usa been stung since with no reaction Methocarbamol Unknown 11/18/2017 documented as of this encounter (statuses as of 07/10/2023) Medications Medication Sig Dispensed Refills Start Date End Date Status Albuterol Sulfate HFA 108 (90 Base) MCG/ACT Inhalation Aerosol Solution Inhale 2 Puffs by mouth every 6 hours as needed for Cough. 72 g 3 05/22/2020 Active Multivitamin Adult Oral Tablet Chewable Take 1 Tablet by mouth in the morning. Vegan vitamin K2-D3 . 0 Active LORazepam 0.5 MG Oral Tablet (Ativan) Take 1 Tablet (0.5 mg) by mouth daily as needed for Anxiety. 15 Tablet 0 03/26/2022 Active Krill Oil 500 MG Oral Capsule Take 1 Capsule by mouth in the morning. 0 Active Famotidine 20 MG Oral Tablet (Pepcid)Indication s:Gastro-esophagea l reflux disease without esophagitis TAKE ONE TABLET BY MOUTH EVERY MORNING AND ONE TABLET BEFORE BEDTIME 200 Tablet 3 10/07/2022 10/07/2023 Active Additional Information Patient taking differently: 20 mg Oral Daily(AM), Reported on 02/11/2023 Lisinopril 10 MG Oral Tablet (Prinivil)Indicati ons:HTN, goal below 140/90 Take 1 Tablet by mouth in the morning. This is a dose adjustment. Refill not needed yet. 0 03/26/2023 Active hydroCHLOROthiazid e 12.5 MG Oral Capsule (Hydrodiuril) Take 1 Capsule by mouth in the morning. 100 Capsule 3 06/26/2023 Active Potassium Chloride ER 10 MEQ Oral Capsule Extended Release Take 1 Capsule by mouth in the morning. 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 06/20/2023 COPD, group A, by GOLD 2017 classification 07/03 Overview: Per COPD GOLD Classification HTN, goal below 140/90 12/22/2019 Gastro-esophageal reflux disease without esophag itis 12/22/2019 Pure hypercholesterolemia 12/22/2019 documented as of this encounter (statuses as of 07/10/2023) Resolved Problems Problem Noted Date Diagnosed Date Resolved Date Chronic obstructive pulmonary disease 12/22/2019 07/06/2020 Overview: Per COPD GOLD Classification documented as of this encounter (statuses as of 07/10/2023) Immunizations Name Administration Dates Next Due COVID-19 [...] Telephone Encounter - Zita Rizo OSA - 07/10/2023 12:19 PM EDT Pts dropped off forms to renew their car insurance. Pt states [employer] is requiring them to have this paperwork signed by pcp. Please complete and contact pt at [phone] to be picked up. Form placed in [employer] to be completed documented in this encounter Plan of Treatment Upcoming Encounters Date Type Department Care Team (Late st Contact Info) Description 10/14/2023 8:40 AM EDT Laboratory Laboratory [facility] [address] [place] [phone] [place] [address] [place] [address] 10/21/2023 9:20 AM EDT Office Visit Family Practice [address] [facility] [facility] [place] [address] Manuel Cortés, [address] [facility], [place] [address] Health Maintenance Due Date Last Done Comments Alpha-1 Antitrypsin 12/22/1958 Depression Screening 02/25/2024 02/24/2023 GFR 04/03/2024 04/03/2023, 05/29, 05/10/2021, Additional history exists O2 ASSESSMENT COMPLETED IN PAST YEAR FOR COPD 06/20/2024 06/20/2023 DTaP,Tdap,and Td Vaccines (2 - Td or Tdap) 10/31/2024 10/31/2014 Albumin/Creatinine Ratio 06/10/2025 06/10/2022, 06/27 Zoster Vaccines Completed 04/03/2020, 08/2019, 01/18/2015 Pneumococcal Vaccine: 65+ Years Completed 01/19/2021, 04/30/2016, 02/25/2007 COLONOSCOPY-EVERY 5 YRS AGES 18-100 Discontinued 06/27/2021, 06/27/2021, 10/08/2019, Additional history exists Influenza Vaccine (FLU shot) Completed 01/29/2023, 02/19/2022, 01/19/2021, Additional history exists COVID-19 Vaccine Completed 02/06/2023, , 08/14/2021, Additional history exists GARDASIL-HPV IMMUNIZATION SERIES Aged [...] filedocumented as of this encounter Care Teams Natural Gas Shothole Driller Relationship Specialty Start Date End Date Manuel Cortés DO [address] [place] [address] PCP - General Internal Medicine 03/27/21 documented as of this encounter
--- NOTE | 2023-12-26 01:13 | Surgery Consultation ---
Date of Consultation December 26, 2023 Assessment & Plan (1) Abdominal mass: Patient has been admitted on the hospitalist service.: She is currently be treating for pneumonia with antibiotics with form of Rocephin and doxycycline. Will defer management of this condition to primary service Concerning the patient's abdominal mass, the exact etiology is unclear. Evaluated definitively tell what this mass is is to obtain a biopsy. This case will be reviewed by my attending physician Dr. Sánchez and a determination will be made if any type of biopsy will be performed or if it would be more prudent to have the patient recover from his pneumonia and then consider reimaging the patient and then performing a biopsy at a later date. Additional recommendations will be forthcoming based on his clinical course as it unfolds Supervising Physician Co-Signing Physician Notes Patient seen and examined, labs and imaging reviewed, agree with above. 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 No obstruction or infection. Per the patient this has been reported in the past and he saw some surgeons down in [place]. No abdominal pain, afebrile with stable vitals, abdomen soft, nontender, nondistended, cannot palpate the mass. CT personally viewed and interpreted and agree with the assessment of some fat the left lower quadrant of the abdomen with possible mass effect that may represent atypical distribution of fat versus lipoma versus a less likely liposarcoma. No acute surgical intervention indicated. Would recommend follow-up imaging as stated in the radiology report and possible percutaneous biopsy. Surgery will sign off, call with questions or concerns History of Present Illness Reason for Consultation: Left lower quadrant fatty density Attending Physician: Eliz Leyva MD History of Present Illness This is an 83-year-old male who has been admitted to the hospital earlier this evening. The patient was admitted with main complaints of fever as well as nausea and vomiting. Patient also notes that he has been having some generalized weakness and his symptomatology began approximately 1:00 PM yesterday. He denies any weight loss. He denies any abdominal pain. The patient was found to have pneumonia on imaging that will be delineated below. He was also found to have a left lower quadrant fatty density for which general surgery was consulted. Since admission to the hospital the patient has had labs and imaging which I independently reviewed. A CT scan of the chest showed findings consistent with right lower lobe pneumonia. A CT scan of the abdomen and pelvis was performed also and this showed the patient had a left lower quadrant fatty density measuring 16 x 10 x 6.2 cm. Labs included a CBC were white blood cell count was 11.1. Hemoglobin and hematocrit are 13.8 and 40.8. Platelet count is noted to be normal. Chemistry profile showed sodium and potassium are 135 and 3.4. BUN and creatinine were both normal. There is no elevation of patient's LFTs. Urinalysis was negative for infection. At the time my interview the patient was resting comfortably in bed he was no distress Allergies Allergy/AdvReac Type Severity Reaction Status Date / Time venom-honey bee Allergy Severe Swelling Verified 12/25/23 18:16 of Lip/Tongue/Throat methocarbamol Allergy Unknown Unknown Verified 12/25/23 18:16 Home Medications Medication Instructions Recorded Confirmed Type albuterol sulfate 90 mcg/actuation 2 puff inhalation Q6H PRN Wheezing 07/29/18 12/25/23 History aerosol inhaler (Ventolin HFA) famotidine 20 mg tablet (Pepcid) 20 mg PO BID 05/24/21 12/25/23 History Vegan Vitamin 1 dose PO QAM 11/22/21 12/25/23 History lisinopril 10 mg tablet 10 mg PO QAM 11/22/21 12/25/23 History lorazepam 0.5 mg tablet (Ativan) 0.5 mg PO DAILY PRN Anxiety 11/22/21 12/25/23 History potassium chloride 10 mEq 10 meq PO QAM 11/22/21 12/25/23 History tablet,extended release hydrochlorothiazide 12.5 mg capsule 12.5 mg PO QAM 12/25/23 12/25/23 History krill oil 500 mg capsule 500 mg PO QAM 12/25/23 12/25/23 History rosuvastatin 10 mg tablet 10 mg PO QAM 12/25/23 12/25/23 History Patient History Medical History GERD (gastroesophageal reflux disease) Anxiety COPD (chronic obstructive pulmonary disease) HTN (hypertension) History of colon polyps Hypercholesterolemia Surgical History S/P excision of lipoma History of bilateral inguinal hernia repair H/O colonoscopy (~2017) S/P repair of ventral hernia (07/30/10) Laparoscopic ventral hernia repair Dr. Sierra History of knee surgery Rt History of rotator cuff surgery Rt Family History Mother Family history of CABG Dissecting aortic aneurysm (any part), thoracic Heart disease Cardiac disorder Hypertension Father Prostate cancer Hypertension Stroke Aunt Breast cancer Uncle Colorectal cancer Uncle Myocardial infarction Daughter Colorectal cancer Other No family history of adverse response to anesthesia Denies family history of Ovarian cancer Social History Smoking Status: Former smoker Tobacco Type: Cigarettes packs per day: 1; Second Hand Exposure: No; Do You Dip or Chew Tobacco: No; Tobacco Cessation Education Requested by Patient: No Hx Alcohol Use: Yes Alcohol type: wine Alcohol Intake Frequency: 4 or More x per/Week Hx Substance Use: Yes Last Used Substance Other:: 2 weeks ago Substance Use Type Other:: 6 MON AGO Preferred Language: Maori Communication Ability: Effective Hair Worker Required: No Beliefs That Will Affect Care: None marital status: Current Living Situation: Spouse current occupational status: retired How many Children do You have: 3 Other Information That Helps Us Care for You: No Feels Safe at Home: Yes Diet: vegan caffeine: Yes (coffee ) during the past year weight has: remained stable Dental Care, Regularly: Yes Physical Activity Frequency: Daily Seatbelt Use: always Sunscreen Use: No Assistive Devices: None Review of Systems Review of Systems: All systems reviewed & are unremarkable except as noted in HPI & below Physical Exam Constitutional: WD/WN, vitals as above Eyes: no conjunctival abnormality ENMT: Ears: no hearing impairment and no external ear abnormality Mouth: no oropharynx abnormality Neck: trachea midline Respiratory: normal respiratory effort; no respiratory distress and no labored breathing Cardiovascular: Rate/Rhythm: regular rate and regular rhythm Gastrointestinal (Abdomen): Abdomen is soft and nondistended. I did not appreciate any masses on palpation. There is no pain with palpation Musculoskeletal: No calf tenderness Skin: no rashes Neurologic: moves all extremities Psychiatric: A+Ox3, euthymic affect Results & Data Vital Signs (Past 12 Hours) Vital Signs Temp Pulse Pulse Resp BP BP Pulse Ox 12/25/23 21:45 95 12/25/23 21:31 102 H 12/25/23 19:56 100 H 30 H 131/79 95 12/25/23 19:29 95 12/25/23 19:29 105 H 88 L 12/25/23 17:52 104 H 12/25/23 16:45 38.2 C H 112 H 20 170/85 H 92 O2 Del Method O2 Flow Rate 12/25/23 21:45 Nasal Cannula 2 12/25/23 21:31 12/25/23 19:56 Nasal Cannula 2 12/25/23 19:29 Nasal Cannula 2 12/25/23 19:29 Room Air 12/25/23 17:52 12/25/23 16:45 Room Air PG Care Time/CCT Total # of Minutes Spent Total Time Spent with Patient: Total time spent is greater than 50% in coordination of care (as documented) at patient's floor/unit and/or counseling patient: Coding Level of Care Code 61352 INT INP/OBS CARE 3/75MIN Diagnoses Abdominal mass R19.00
[2023-12-26] MEDS: POTASSIUM CHLORIDE / WTR 10 MEQ/100 ML PLCT IV SCH (01:20)
[2023-12-26] MEDS: FAMOTIDINE 20 MG TAB PO SCH (01:24)
[2023-12-26] MEDS: SODIUM CHLORIDE 0.9% 500 ML IV SCH ×2 (02:38→06:58)
[2023-12-26 07:02] LABS: Hematocrit (blood only) 34.3 % (42.0-52.0); Hemoglobin 11.4 g/dl (14.0-18.0); Mean Corpuscular Hemoglobin 31.4 pg (25.0-34.0); Mean Corpuscular Hgb Conc 33.2 g/dL (32.0-36.0); Mean Corpuscular Volume 94.5 fL (80.0-100.0); Mean Platelet Volume 10.4 fL (9.4-12.4); Platelet Count 149 K/uL (130-400); RDW Coefficient of Variation 12.9 % (11.5-14.5); RDW Standard Deviation 44.7 fL (36.4-46.3); Red Blood Count 3.63 M/uL (4.70-6.10); White Blood Count 11.53 K/ul (4.8-10.8)
[2023-12-26] MEDS: 4.5GM X1 IV ONE (07:15)
--- NOTE | 2023-12-26 07:26 | XRay Report ---
XR chest 1V portable HISTORY: Shortness of breath. COMPARISON: Chest 11/08/2020. FINDINGS: There is new right lower lobe airspace opacity consistent with a pneumonia. No pneumothorax . No pleural effusions. The heart remains mildly enlarged. No acute fractures. IMPRESSION: A new right lower lobe airspace opacity consistent with a pneumonia. 1-2 month chest x-ray follow-up recommended to ensure resolution. ACT 112: Negative or not required by law. Electronically signed by: Bradley Crook M.D. 12/26/2023 7:24 AM
[2023-12-26 07:28] LABS: BUN Creatinine Ratio 21.8 (10-20); Calcium 7.6 mg/dl (8.6-10.3); Creatinine Clr Calc Pharmacy 65.3 ml/min; Est GFR (African American) 91.9 ml/min; Est GFR (Non-African American) 79.3 ml/min; Magnesium 1.9 mg/dl (1.7-2.4); Potassium 4.2 mmol/L (3.5-5.1)
[2023-12-26 07:29] LABS: Basophils # (auto) 0.02 K/uL (0.00-0.20); Basophils % (auto) 0.2 %; Immature Granulocytes % (auto) 1.7 %; Lymphocytes # (auto) 0.58 K/uL (1.20-3.40); Monocytes # (auto) 0.72 K/uL (0.11-0.59); Monocytes % (auto) 6.2 %; Neutrophils # (auto) 10.01 K/uL (1.40-6.50); Neutrophils % (auto) 86.9 %
[2023-12-26] MEDS: SODIUM CHLOR 7% 4 ML NEB NEB SCH (07:39)
[2023-12-26] MEDS: ALBUT/IPRATROP 3MG/0.5MG NEB 3 ML VIAL NEB SCH (07:39)
[2023-12-26] MEDS ORDERED: cefTRIAXone SODIUM 2,000 MG/50 ML BAG IV SCH (08:00)
[2023-12-26] MEDS: DOXYCYCLINE HYCLATE 100 MG in DEXTROSE 5% MINI-B 100 ML IV SCH (08:10)
[2023-12-26] MEDS: POTASSIUM CHLORIDE 10 MEQ TABCR PO SCH (08:14)
[2023-12-26] MEDS: ROSUVASTATIN CALCIUM 10 MG TAB PO SCH (08:15)
[2023-12-26] MEDS ORDERED: lisinopril 10 MG TAB PO SCH (09:00)
--- NOTE | 2023-12-26 09:09 | Hospitalist Progress Note ---
Date of Service December 26, 2023 Assessment & Plan (1) Pneumonia: Plan: 83-year-old male with past medical history significant for hypercholesterolemia, COPD, hypertension, GERD, BPH comes because of flulike symptoms. Apparently patient was doing fine was working outside his house today when suddenly became sick with nausea ,lot of hip pain and was having cough. And developed fevers. Not really able to eat anything today with nausea. No vomiting. No diarrhea or constipation. Micturating okay. Denies any chest pain. In the ER he was hypoxic and requiring 2 L oxygen. Currently denies any headache. No runny nose or sore throat. In the ER he was somewhat tachycardic and spiking temperatures. 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 Right lower lobe pneumonia Patient presented with cough and fever Chest x-ray personally reviewed; right lower lobe infiltrate present CT chest showed right lower lobe pneumonia Currently on Zosyn and doxycycline, continue Airway clearance therapy with DuoNeb/hypertonic saline, flutter valve [employer] evaluation for possible aspiration He will need follow-up CT chest in 6 weeks to ensure resolution. Left lower quadrant mass CT abdomen and pelvis left lower quadrant fatty density with mass effect measuring 16 X 10 X 6.2cm. Patient was evaluated for similar mass in May [address] Zoltan galvan from surgical oncology. He was recommended to have follow-up CT in 4 months to ensure stability. Will recommend patient to follow-up with him again as outpatient with images to confirm stability/comparison of the mass. Prolonged QT EKG onshows normal sinus rhythm with first-degree AV block and PVC. QTc of 452 Avoid QT prolonging drugs History of COPD No obvious wheezing Continue home inhaler Nebs as needed Close monitor Hypertension Currently hypotensive Will hold hydrochlorothiazide and lisinopril Will monitor Diarrhea had few episodes of diarrhea on the floor will follow stool studies. GERD On Pepcid, continue Hyperlipidemia On rosuvastatin,continue DVT prophylaxis Lovenox Disposition Med/telemetry Full code. Time spent evaluating patient, direct bedside care, chart review, placing orders, interpretation of diagnostic studies, discussion with consultants, patient, and family members, as well as other required patient management activities is 50-minute Please note the above document was generated using voice recognition software. It may contain grammatical, syntax or spelling errors. Any formal questions or concerns about the content, text or information contained within the body of this dictation should be directly addressed to the provider for clarification Admission and Anticipated Discharge Date Admission Date: December 25, 2023 Subjective Patient hypotensive requiring multiple fluid boluses He is saturating well on room air No significant events overnight Review of Systems Review of Systems: All systems reviewed & are unremarkable except as noted in Subjective Physical Exam Physical Exam: Constitutional: Alert oriented x 3 Respiratory: Decreased breath sound in right lower lung field Cardiovascular: RRR, no murmur, no edema Vessels: no JVD or carotid bruit Chest: normal inspection of chest Abdomen: normal bowel sounds, soft, nontender, no hepatosplenomegaly Musculoskeletal: no cyanosis or clubbing, extremities motor strength 5/5 Skin: no rashes, warm and dry normal turgor Neurologic: PERRL, EOMI, accommodation nl, no face palsy, no dysarthria CN's II- XI intact bilaterally and moves all extremities Psychiatric: A+Ox3, euthymic affect Results & Data Results & Data Vital Signs (Past 12 Hours) Vital Signs Temp Pulse Pulse Pulse Resp BP BP 12/26/23 08:21 87/56 L 12/26/23 07:50 37.0 C 78 14 86/54 L 12/26/23 07:42 77 16 12/26/23 07:18 73 12/26/23 06:30 94/50 L 78/32 L 12/26/23 02:01 36.8 C 87 16 86/43 L 12/26/23 01:52 101 H 12/25/23 22:15 12/25/23 22:15 36.9 C 102 H 18 121/70 12/25/23 21:45 12/25/23 21:31 102 H Pulse Ox O2 Del Method O2 Flow Rate 12/26/23 08:21 12/26/23 07:50 93 Room Air 12/26/23 07:42 92 Room Air 12/26/23 07:18 12/26/23 06:30 90 Room Air 12/26/23 02:01 95 Nasal Cannula 2 12/26/23 01:52 12/25/23 22:15 Nasal Cannula 2 12/25/23 22:15 93 Nasal Cannula 2 12/25/23 21:45 95 Nasal Cannula 2 12/25/23 21:31
--- NOTE | 2023-12-26 11:32 | Fluoroscopy Report ---
MODIFIED BARIUM SWALLOW CLINICAL HISTORY: r/o asp, pt with pna COMPARISON STUDY: Upper GI series August 25, 2008. FLUOROSCOPY TIME: 0.57 seconds. Ka,r: 5.81 mGy. TECHNIQUE: A modified barium swallow was performed in conjunction with Speech Pathology. The patient ingested varying consistencies of barium containing material. Video fluoroscopy was performed. FINDINGS: No aspiration was identified with thin liquids, nectar thick liquids, pudding or cookie and pudding consistency. Epiglottic inversion was normal. Laryngeal elevation was normal. Moderate esoph ageal dysmotility was noted at the completion of this exam. IMPRESSION: 1. Intact swallowing mechanism. No tracheal aspiration. 2. Moderate esophageal dysmotility. 3. Full recommendations by Speech pathology to follow. ACT 112: Negative or not required by law. Electronically signed by: Mark Germain M.D. 12/26/2023 11:30 AM
[2023-12-26] MEDS: PIPERACILLIN/TAZOBACTAM 4.5 GM/100 ML BAG IV SCH (12:12)
[2023-12-26] MEDS: SODIUM CHLORIDE 0.9% 1,000 ML IV SCH (12:38)
[2023-12-26 18:04] LABS: Adenovirus F 40/41 PCR Not Detected (NotDetected); Astrovirus PCR Not Detected (NotDetected); Campylobacter PCR Not Detected (NotDetected); Cryptosporidium PCR Not Detected (NotDetected); Cyclospora cayetanensis PCR Not Detected (NotDetected); Entamoeba histolytica PCR Not Detected (NotDetected); Enteroaggregative E.coli(EAEC) Not Detected (NotDetected); Enteropathogenic E.coli (EPEC) Not Detected (NotDetected); Enterotoxigenic E.coli (ETEC) Not Detected (NotDetected); Giardia lamblia PCR Not Detected (NotDetected); Norovirus GI/GII PCR Not Detected (NotDetected); Plesiomonas shigelloides PCR Not Detected (NotDetected); Rotavirus A PCR Not Detected (NotDetected); Salmonella PCR Not Detected (NotDetected); Sapovirus PCR Not Detected (NotDetected); Shiga-like Toxin E.coli (STEC) Not Detected (NotDetected); Shigella/Enteroinvasive E.coli Not Detected (NotDetected); Vibrio cholerae PCR Not Detected (NotDetected); Vibrio species PCR Not Detected (NotDetected); Yersinia enterocolitica PCR Not Detected (NotDetected)
--- NOTE | 2023-12-27 | Electrocardiogram Report ---
Test Reason : Blood Pressure : */* mmHG Vent. Rate : 115 BPM Atrial Rate : * BPM P-R Int : * ms QRS Dur : 82 ms QT Int : 336 ms P-R-T Axes : * 7 -14 degrees QTcB Int : 465 ms Poor data quality, interpretation may be adversely affected Sinus tachycardia Cannot rule out Inferior infarct , age undetermined Nonspecific ST abnormality Abnormal ECG When compared with ECG of 29-Jul-2018 15:31, Vent. rate has increased by 44 bpm Confirmed by Marcellus Boles ([id number]) on 12/26/2023 11:59:49 PM Referred By: REFERRED SELF Confirmed By: Marecllus Boles
--- NOTE | 2023-12-27 00:01 | Electrocardiogram Report ---
Test Reason : Blood Pressure : */* mmHG Vent. Rate : 97 BPM Atrial Rate : 97 BPM P-R Int : 216 ms QRS Dur : 94 ms QT Int : 356 ms P-R-T Axes : 50 34 45 degrees QTcB Int : 452 ms Poor data quality, interpretation may be adversely affected Sinus rhythm with 1st degree A-V block with Premature supraventricular complexes and with occasional Premature ventricular complexes Otherwise normal ECG When compared with ECG of 25-Dec-2023 17:06, ST no longer depressed in Anterior leads Confirmed by Marcellus Boles ([id number]) on 12/27/2023 12:00:54 AM Referred By: REFERRED SELF Confirmed By: Marcellus Boles
[2023-12-27] MEDS: ACETAMINOPHEN 325 MG TAB PO PRN (03:21)
--- NOTE | 2023-12-27 14:51 | Hospitalist Progress Note ---
Date of Service December 27, 2023 Assessment & Plan (1) Pneumonia: Plan: 83-year-old male with past medical history significant for hypercholesterolemia, COPD, hypertension, GERD, BPH comes because of flulike symptoms. Apparently patient was doing fine was working outside his house today when suddenly became sick with nausea ,lot of hip pain and was having cough. And developed fevers. Not really able to eat anything today with nausea. No vomiting. No diarrhea or constipation. Micturating okay. Denies any chest pain. In the ER he was hypoxic and requiring 2 L oxygen. Currently denies any headache. No runny nose or sore throat. In the ER he was somewhat tachycardic and spiking temperatures. 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 Right lower lobe pneumonia Patient presented with cough and fever Chest x-ray personally reviewed; right lower lobe infiltrate present CT chest showed right lower lobe pneumonia Currently on Zosyn and doxycycline, continue Airway clearance therapy with DuoNeb/hypertonic saline, flutter valve VFSS done; no aspiration appreciated He will need follow-up CT chest in 6 weeks to ensure resolution to evaluate for underlying malignancy.Discussed with patient and family at bedside; both are agreeable Left lower quadrant mass CT abdomen and pelvis left lower quadrant fatty density with mass effect measuring 16 X 10 X 6.2cm. Patient was evaluated for similar mass in May [address] Limon from surgical oncology. He was recommended to have follow-up CT in 4 months to ensure stability. Will recommend patient to follow-up with him again as outpatient with images to confirm stability/comparison of the mass. Prolonged QT EKG onshows normal sinus rhythm with first-degree AV block and PVC. QTc of 452 Avoid QT prolonging drugs History of COPD No obvious wheezing Continue home inhaler Nebs as needed Close monitor Hypertension Hypotensive episodes Will hold hydrochlorothiazide and lisinopril Will monitor Diarrhea had few episodes of diarrhea on the floor Stool studies are negative GERD On Pepcid, continue Hyperlipidemia On rosuvastatin,continue DVT prophylaxis Lovenox Disposition Med/telemetry Full code. Discussed plan of care with patient and family. They are agreeable with the plan. Possible DC in a.m. if patient continues to be clinically stable. Time spent evaluating patient, direct bedside care, chart review, placing orders, interpretation of diagnostic studies, discussion with consultants, patient, and family members, as well as other required patient management activities is 50-minute Please note the above document was generated using voice recognition software. It may contain grammatical, syntax or spelling errors. Any formal questions or concerns about the content, text or information contained within the body of this dictation should be directly addressed to the provider for clarification Admission and Anticipated Discharge Date Admission Date: December 25, 2023 Subjective Patient reports that he is feeling much better compared to previous days. He reports feeling better; blood pressure has improved He is saturating well on room air Physical Exam Physical Exam: Constitutional: Alert oriented x 3 Respiratory: Decreased breath sound in right lower lung field Cardiovascular: RRR, no murmur, no edema Vessels: no JVD or carotid bruit Chest: normal inspection of chest Abdomen: normal bowel sounds, soft, nontender, no hepatosplenomegaly Musculoskeletal: no cyanosis or clubbing, extremities motor strength 5/5 Skin: no rashes, warm and dry normal turgor Neurologic: PERRL, EOMI, accommodation nl, no face palsy, no dysarthria CN's II- XI intact bilaterally and moves all extremities Psychiatric: A+Ox3, euthymic affect Results & Data Results & Data Vital Signs (Past 12 Hours) Vital Signs Temp Pulse Pulse Resp BP BP Pulse Ox 12/27/23 11:25 36.6 C 71 18 126/76 95 12/27/23 09:00 12/27/23 07:47 36.5 C 69 16 132/80 95 12/27/23 07:35 63 12/27/23 07:19 76 16 90 12/27/23 04:06 37.1 C 12/27/23 02:56 37.6 C H 84 18 101/55 L 89 L O2 Del Method 12/27/23 11:25 Room Air 12/27/23 09:00 Room Air 12/27/23 07:47 Room Air 12/27/23 07:35 12/27/23 07:19 Room Air 12/27/23 04:06 12/27/23 02:56 Room Air
[2023-12-28 06:58] LABS: Basophils # (auto) 0.05 K/uL (0.00-0.20); Basophils % (auto) 0.5 %; Eosinophils # (auto) 0.11 K/uL (0.00-0.50); Eosinophils % (auto) 1.1 %; Hematocrit (blood only) 33.4 % (42.0-52.0); Hemoglobin 11.5 g/dl (14.0-18.0); Immature Granulocytes # (auto) 0.07 K/uL (0.01-0.20); Immature Granulocytes % (auto) 0.7 %; Lymphocytes # (auto) 1.08 K/uL (1.20-3.40); Lymphocytes % (auto) 10.5 %; Mean Corpuscular Hemoglobin 31.9 pg (25.0-34.0); Mean Corpuscular Hgb Conc 34.4 g/dL (32.0-36.0); Mean Corpuscular Volume 92.8 fL (80.0-100.0); Mean Platelet Volume 10.8 fL (9.4-12.4); Monocytes # (auto) 0.53 K/uL (0.11-0.59); Monocytes % (auto) 5.2 %; Neutrophils # (auto) 8.44 K/uL (1.40-6.50); Platelet Count 176 K/uL (130-400); RDW Coefficient of Variation 12.7 % (11.5-14.5); RDW Standard Deviation 43.3 fL (36.4-46.3); White Blood Count 10.28 K/ul (4.8-10.8)
[2023-12-28 07:27] LABS: BUN Creatinine Ratio 23.5 (10-20); Calcium 8.4 mg/dl (8.6-10.3); Creatinine Clr Calc Pharmacy 83.5 ml/min; Est GFR (African American) 101.6 ml/min; Est GFR (Non-African American) 87.7 ml/min; Potassium 3.4 mmol/L (3.5-5.1)
[2023-12-28] MEDS: POTASSIUM CHLORIDE CRTAB 20 MEQ TABCR PO STA (08:48)
--- NOTE | 2023-12-28 09:49 | Discharge Summary ---
Date of Service December 28, 2023 Admission HPI Per Admitting Provider 83-year-old male with past medical history significant for hypercholesterolemia, COPD, hypertension, GERD, BPH comes because of flulike symptoms. Apparently patient was doing fine was working outside his house today when suddenly became sick with nausea ,lot of hip pain and was having cough. And developed fevers. Not really able to eat anything today with nausea. No vomiting. No diarrhea or constipation. Micturating okay. Denies any chest pain. In the ER he was hypoxic and requiring 2 L oxygen. Currently denies any headache. No runny nose or sore throat. In the ER he was somewhat tachycardic and spiking temperatures. 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 Past medical history. As mentioned above Past surgical history. Colonoscopy. Bilateral cataracts. Bilateral inguinal hernia repair. Social history. . Quit smoking 1967. Smoked 1 pack a day for 12 years. Alcohol once a week. No drug use. Family history. Mother had aortic dissection. Father had stroke. Brain hemorrhage. Sister had has hypertension. Macular degeneration. Admission Exam Per Admitting Provider General- Not in distress Head- atraumatic Eyes- PERRL. ENT- oropharynx clear Neck- supple, no JVD. Lungs- clear to auscultation no wheezing or crackles. Heart- regular rhythm;Tachycardia, no murmur, no gallop. Abdomen- normal bowel sounds, soft, nontender, no distension. Extremities- no pretibial edema, no erythema seen. Neuro- alert, oriented PERRL, no facial palsy; no dysarthria; moves extremities. Principal Diagnosis Sepsis POA Right lower lobe pneumonia Intra-abdominal mass Discharge Exam Constitutional: Alert oriented x 3 Respiratory: Decreased breath sound in right lower lung field Cardiovascular: RRR, no murmur, no edema Vessels: no JVD or carotid bruit Chest: normal inspection of chest Abdomen: normal bowel sounds, soft, nontender, no hepatosplenomegaly Musculoskeletal: no cyanosis or clubbing, extremities motor strength 5/5 Skin: no rashes, warm and dry normal turgor Neurologic: PERRL, EOMI, accommodation nl, no face palsy, no dysarthria CN's II- XI intact bilaterally and moves all extremities Psychiatric: A+Ox3, euthymic affect Discharge Data Allergies Allergy/AdvReac Type Severity Reaction Status Date / Time venom-honey bee Allergy Severe Swelling Verified 12/25/23 18:16 of Lip/Tongue/Throat methocarbamol Allergy Unknown Unknown Verified 12/25/23 18:16 Consultations 12/25/23 19:39 ED Decision to Admit Stat 12/26/23 08:00 Consult General Surgery Routine 12/27/23 14:48 Burn CD for patient Routine Ordered Studies 12/25/23 17:28 CT Abd and Pelvis [CT abd pelvis IV con only] Stat 12/25/23 20:50 CT chest diagnostic wo con Urgent 12/26/23 09:30 Fluoro video [FL video swallow] Routine Hospital Course (1) Pneumonia: 83-year-old male with past medical history significant for hypercholesterolemia, COPD, hypertension, GERD, BPH comes because of flulike symptoms. Right lower lobe pneumonia Patient presented with cough and fever Chest x-ray personally reviewed; right lower lobe infiltrate present CT chest showed right lower lobe pneumonia During hospitalization, patient was treated with IV antibiotics with improvement in his symptoms. Blood culture did not show any growth in 48 hours. Video swallow evaluation was done; no aspiration was appreciated; found to have moderate esophageal dysmotility. Patient was discharged home on oral antibiotics. He will need follow-up CT chest in 6 weeks to ensure resolution to evaluate for underlying malignancy. Discussed with patient and family at bedside; both are agreeable Left lower quadrant mass CT abdomen and pelvis left lower quadrant fatty density with mass effect measuring 16 X 10 X 6.2cm. Patient was evaluated for similar mass in May [address] Limon from surgical oncology. He was recommended to have follow-up CT in 4 months to ensure stability. Will recommend patient to follow-up with him again as outpatient with images to confirm stability/comparison of the mass.Discussed with patient and family; agreeable with plan Please note the above document was generated using voice recognition software. It may contain grammatical, syntax or spelling errors. Any formal questions or concerns about the content, text or information contained within the body of this dictation should be directly addressed to the provider for clarification Total Time Total Time Spent Total Time Spent (In Minutes): 45 Total Time Includes: Examination of the Patient, Discharge Planning, Medication Reconciliation, Communication With Other Providers and Other Discharge Plan Discharge Items Patient Disposition: Home - Self-Care Reason For Visit: PNEUMONIA, HYPOXIA Discharge Diagnosis: Right lower lobe pneumonia Activity: Resume your previous activity Non-emergency contact: Primary Care Provider Call non-emergency contact if: you have any medication questions and your symptoms worsen Follow-up/Referrals: Manuel Cortés, [Primary Care Provider] - Diet: Regular Addtl Attending Provider Instructions: You were admitted to the hospital with right lower lobe pneumonia seen in the CT scan. Please take following antibiotics to complete the course: Take Augmentin twice a day for 7 days Take doxycycline twice a day for 4 days You will need a repeat CT scan of the chest in 6 weeks to ensure resolution as we have discussed. You are also found to have mass in the CT abdomen pelvis of 16 X10 X 6.2 cm. Please follow-up with Dr. Limon from surgical oncology to review further. Pending Studies at Discharge: No Stand-Alone Forms: [facility], Smoking Cessation Medications and DC Order Prescriptions: New amoxicillin-pot clavulanate 875-125 mg tablet 1 tab PO BID 7 Days Qty: 14 0RF doxycycline hyclate 100 mg tablet 100 mg PO BID 4 Days Qty: 8 0RF Continued famotidine [Pepcid] 20 mg tablet 20 mg PO BID albuterol sulfate [Ventolin HFA] 90 mcg/actuation Hfa Aerosol Inhaler 2 puff INHALATION Q6H PRN (Reason: Wheezing) lorazepam [Ativan] 0.5 mg Tablet 0.5 mg PO DAILY PRN (Reason: Anxiety) Vegan Vitamin 1 dose PO QAM potassium chloride 10 mEq tablet extended release 10 meq PO QAM lisinopril 10 mg tablet 10 mg PO QAM Rx Instructions: TAKE 1 TABLET BY MOUTH ONCE DAILY hydrochlorothiazide 12.5 mg capsule 12.5 mg PO QAM rosuvastatin 10 mg tablet 10 mg PO QAM krill oil 500 mg Capsule 500 mg PO QAM Discharge Orders: Discharge Order (Routine); Ordered 12/28/23 Ordered By: Rusty Pinto Admission Data Admit Date/Time: 12/25/23 20:50 Attending Provider: Rusty Pinto Admit Provider: Robert Justice Primary Care Provider: Manuel Cortés Other Providers: Robert Justice; Garth Sánchez Other Interventions: Discharge Summary Assessment (RN) Last Done: 12/28/23 11:19
[2023-12-28 11:25] VITALS: BP 159/85; PULSE 79; RESP 18; TEMP 97.9; O2SAT 96
[2023-12-30 22:06] LABS: Ehrlichia chaff DNA Bld Negative (Negative)
[2023-12-31 02:42] LABS: Babesia microti DNA Not Detected (Not Detected)
== END 2023-12-28 12:02 | disposition home or self-care (01) | DRG 871 ==
LOC: ED 16:39 → SUATTDRO 20:50 → 2N 20:50

== ENCOUNTER 2025-02-18 13:18 | Inpatient (IN) ==
[2025-02-18] MEDS: OPTIRAY 320 125ml IV ONE (13:42)
--- NOTE | 2025-02-18 14:02 | CT Scan Report ---
CT SCAN OF THE BRAIN WITHOUT IV CONTRAST CLINICAL HISTORY: Strokelike symptoms. Dizziness. Unsteady gait. COMPARISON STUDY: CT of the brain dated 03/17/2013. TECHNIQUE: Unenhanced CT scan of the brain is performed from the vertex to the skull base. Images are reviewed in the axial, sagittal, coronal planes. A dose lowering technique was utilized adhering to the principles of ALARA. FINDINGS: Brain parenchyma: There is age-related involutional change noting mild subcortical and periventricula r microangiopathic disease. There is no hemorrhage, mass effect, or evidence of acute territorial isc hemia by CT criteria. Montesinos-white matter differentiation is preserved. No extra-axial fluid collection is seen. Ventricles, sulci, cisterns: Prominent secondary to involutional change. Intracranial vasculature: There is atherosclerotic calcification of the cavernous carotid and vertebr al arteries. Calvarium: Unremarkable. Sinuses and mastoids: Mild mucosal thickening is noted within the left frontal sinus, the ethmoid sin uses, the sphenoid sinuses, and the maxillary antra. The mastoid air cells are well pneumatized. Orbits: The bony orbits are grossly intact. There are bilateral ocular lens implants. IMPRESSION: There is no hemorrhage, mass effect, or evidence of acute territorial ischemia by CT alexis lopez. ACT 112: Negative or not required by law. Electronically signed by: Fidel Suazo M.D. 02/18/2025 2:00 PM
--- NOTE | 2025-02-18 14:02 | CT Scan Report ---
CT angio head w con CLINICAL HISTORY: 84 years-old Male with neuro deficit, acute stroke suspected. Acute stroke like simple COMPARISON STUDY: Head CT 02/18/2025 TECHNIQUE: Following the IV administration of 119 cc of Optiray, CT angiogram of the brain was perfor med from the skull base to the vertex. Images are reviewed in the axial, sagittal, and coronal planes . 3-D MIPS images are created and assessed. IV contrast was administered without complication. All me asurements were obtained according to NASCET criteria. A dose lowering technique was utilized adherin g to the principles of ALARA. CT DOSE: 1038.19 mGy.cm FINDINGS: CT BRAIN: Dictated separately. Possible arachnoid cyst adjacent to the superior left frontal lobe. CT ANGIOGRAM OF THE BRAIN: The imaged bilateral internal carotid arteries are patent. Tortuosity with fusiform dilation of the d istal cervical segments of the internal carotid arteries measuring up to 9 mm bilaterally. The bilate ral anterior and middle cerebral arteries are also patent. The vertebrobasilar system and posterior c erebral arteries are widely patent. origin of the left posterior cerebral artery. There is no a neurysm, high-grade stenosis, or proximal branch occlusion identified. Dural sinuses appear patent. IMPRESSION: Unremarkable CTA of the head. ACT 112: Negative or not required by law. The above report was generated using voice recognition software. It may contain grammatical, syntax o r spelling errors. Electronically signed by: Pablo aVn M.D. 02/18/2025 2:01 PM
--- NOTE | 2025-02-18 14:09 | Emergency Department Note ---
Impression & Plan Dizziness, Dissection of vertebral artery, Aneurysm of carotid artery ED Provider Note ED Provider Note NAME: JOEL PRIDE AGE:84 SEX: Male : 1940 ARRIVES VIA: Private vehicle INFORMANT: Patient ED PROVIDER(s): Nichole Domingo DO CHIEF COMPLAINT: dizziness HPI: This is an 84-year-old male brought in by his due to concern for dizziness that began this morning at 10 AM. Patient felt dizziness was different than prior episodes of vertigo that he has had. He denies any recent trauma or change in activity. He denies any recent illness. He denied any recent fevers, chills, URI symptoms. He denies any coming headaches, vision changes, numbness or tingling. He denies any chest pain, shortness of breath, abdominal pain, nausea or vomiting, change in bowel or bladder function. PAST MEDICAL HISTORY:See Below PAST SURGICAL HISTORY:See Below FAMILY HISTORY:See Below SOCIAL HISTORY:See Below HOME MEDICATIONS:See Below ALLERGIES:See Below VITALS:See Below PHYSICAL EXAMINATION: GENERAL: alert, well appearing, well nourished, no distress, non-toxic EYE EXAM: normal conjunctiva, PERRL and EOM's grossly intact, no nystagmus OROPHARYNX: no exudate, no erythema, lips, buccal mucosa, and tongue normal and mucous membranes are moist NECK: supple, no nuchal rigidity, no adenopathy, non-tender LUNGS: Clear to auscultation. Normal chest wall mechanics, no w/r/r HEART: no murmurs, S1 normal and S2 normal ABDOMEN: abdomen soft, non-tender, normo-active bowel sounds, no masses, no rebound or guarding. BACK: Back is symmetrical on inspection and there is no deformity, no midline tenderness, no CVA tenderness. SKIN: no rashes, petechiae, orbruising UPPER EXTREMITIES: upper extremities are grossly normal. FROM, nml pulses b/l. LOWER EXTREMITIES: No pitting edema. FROM, nml pulses b/l. NEURO EXAM: Normal sensorium, cranial nerves II-XII grossly intact, normal speech, no facial droop,nogross weakness of arms, no gross weakness of legs. Gross sensation intact. No ataxia. NIHSS 0. Vital Signs: reviewed and remarkable Differential Diagnosis: benign positional vertigo, dehydration, hypovolemia, anemia, tumor, hypoglycemia, electrolyte abnormalities, ICH, CVA, dysrhythmia, as well as others were entertained. MEDICAL DECISION MAKING: THis is an 84 yo male who presents to the ER with concern for abrupt onset dizziness. He was afebrile and VS stable. Initial hypertension noted however this improved without intervention. Patient with a nonfocal neuro exam, NIHSS 0. A stroke alert was initiated from triage using 10 am as the last known well. Case discussed with [facility] neurology, Dr. Hanson. CT's without acute CVA however dissections and aneurysms noted. Dr. Hanson recommended further evaluation and multiple MR's. This was discussed via Sinclair text as his consult wasn't yet available in the EMR. Dr. Nelson came to the ER to discuss his recommendations and MR orders placed while she was present during discussion of the case as radiology stated we do not have a dissection protocol for MRA here. Patient remained stable while in the ER and had no other new or evolving symptoms. Consultation(s): 1405: Discussed with Dr. Hanson, [facility] neurology. 1424: Discussed with Dr. Hanson, [facility] neurology. Recommends admission, states patient does not need transferred. Patient not a TNK candidate. Given findings of aneurysms and dissections on the CTA's are not ones that require urgent neurosurgical intervention. He recommends follow-up MRA head and neck dissection protocol, MRV, and MRI. States patient should be started on aspirin 81 mg and Plavix 300 mg. 1508: Discussed with Dr. Nelson, [facility] hospitalist team, for additional evaluation and mgmt. 1614: Discussed via Sinclair text with Dr. Nelson and Dr. Hanson regarding additional MR imaging. MR orders placed with Dr. Nelson who will follow up results. ER Treatment Provided: See below Diagnostics Interpreted By Me: -ECG: Normal sinus at 88, normal axis, normal intervals, inverted T waves noted in lead III, and V3 -Cardiac Monitoring: An order was placed for continuous cardiac monitoring. The monitor shows a rate of 80 with normal sinus rhythm. -Laboratory studies: As stated above and show below. -Imaging studies: ct head: no ich Triage Nursing Note Reviewed Prior/Outside Records Reviewed Critical care: Critical care of 62 min performed to assess and manage high likelihood of life-threatening stroke, involving labs and imaging performed with assessment to evaluate dizziness diagnosis with frequent reassessment. This time includes bedside time, treatment discussions with patient/family/consultants, documentation time and excludes procedure time. Past Med/Surg History Problem List (Updated 02/18/25 @ 19:03 by Nichole Domingo DO) Aneurysm of carotid artery (Acute) Dissection of vertebral artery (Acute) Vertebral artery dissection Dizziness (Acute) Pneumonia (Acute) Pneumonia Marijuana smoker Chronic cough Upper airway cough syndrome Allergic rhinitis with postnasal drip Ex-smoker Asthma-COPD overlap syndrome Encounter for pre-operative examination Hypertension (Chronic) GERD (gastroesophageal reflux disease) (Chronic) Allergic reaction to bee sting (Acute) Hyperlipidemia COPD (chronic obstructive pulmonary disease) Hypoglycemia Lower resp. tract infection Retroperitoneal mass Advanced COPD Asthma Depression with anxiety Hypertension Medical History Abdominal mass GERD (gastroesophageal reflux disease) Anxiety COPD (chronic obstructive pulmonary disease) HTN (hypertension) History of colon polyps Hypercholesterolemia Surgical History S/P excision of lipoma History of bilateral inguinal hernia repair H/O colonoscopy (~2017) S/P repair of ventral hernia (07/30/10) Laparoscopic ventral hernia repair Dr. Sierra History of knee surgery Rt History of rotator cuff surgery Rt Family History Mother Family history of CABG Dissecting aortic aneurysm (any part), thoracic Heart disease Cardiac disorder Hypertension Father Prostate cancer Hypertension Stroke Aunt Breast cancer Uncle Colorectal cancer Uncle Myocardial infarction Daughter Colorectal cancer Other No family history of adverse response to anesthesia Denies family history of Ovarian cancer Social History Smoking Status: Never smoker packs per day: 1; Second Hand Exposure: No; Do You Dip or Chew Tobacco: No; Hx Alcohol Use: Yes Alcohol type: beer Alcohol Intake Frequency: 4 or More x per/Week Hx Substance Use: Yes Last Used Substance Other:: 2 weeks ago Substance Use Type Other:: 6 MON AGO Preferred Language: Nigerien Communication Ability: Effective 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 Beliefs That Will Affect Care: None marital status: Current Living Situation: Spouse current occupational status: retired How many Children do You have: 3 Feels Safe at Home: Yes Diet: vegan caffeine: Yes (coffee ) during the past year weight has: remained stable Dental Care, Regularly: Yes Physical Activity Frequency: Daily Seatbelt Use: always Sunscreen Use: No Assistive Devices: None Allergies Allergies Allergy/AdvReac Type Severity Reaction Status Date / Time venom-honey bee Allergy Severe Swelling Verified 12/25/23 18:16 of Lip/Tongue/Throat methocarbamol Allergy Unknown Unknown Verified 12/25/23 18:16 Home Meds Home Medications Medication Instructions Recorded Confirmed albuterol sulfate 90 mcg/actuation 2 puff inhalation Q6H PRN Wheezing 07/29/18 02/18/25 aerosol inhaler (Ventolin HFA) famotidine 20 mg tablet (Pepcid) 20 mg PO BID 05/24/21 02/18/25 Vegan Vitamin 1 dose PO QAM 11/22/21 02/18/25 lisinopril 10 mg tablet 10 mg PO QAM 11/22/21 02/18/25 lorazepam 0.5 mg tablet (Ativan) 0.5 mg PO DAILY PRN Anxiety 11/22/21 02/18/25 potassium chloride 10 mEq 10 meq PO QAM 11/22/21 02/18/25 tablet,extended release hydrochlorothiazide 12.5 mg capsule 12.5 mg PO QAM 12/25/23 02/18/25 krill oil 500 mg capsule 500 mg PO QAM 12/25/23 02/18/25 Previous Rx's Medication Instructions Recorded aspirin 81 mg tablet,delayed 81 mg PO QAM #30 tabs 02/19/25 release atorvastatin 40 mg tablet 40 mg PO DAILY #30 tabs 02/19/25 clopidogrel 75 mg tablet 75 mg PO QAM #30 tabs 02/19/25 Results & Data (ED) Vital Signs Vital Signs - 24 hr 02/18/25 13:23 02/18/25 13:58 02/18/25 14:33 Temperature 36.3 C L Temperature Source Temporal Artery Scan Pulse Rate 77 92 H Pulse Rate [Apical] 82 Pulse Rate from SpO2 Sensor Respiratory Rate 18 16 Blood Pressure 174/100 H Blood Pressure [Right Arm] 156/99 H Blood Pressure Mean 124 Blood Pressure Mean [Right Arm] 118 Pulse Oximetry 94 96 Oxygen Delivery Method Room Air Room Air Sepsis Recent Fever Within 48 Hours No Sepsis New/Unexplained Change in Mental Status N/A Sepsis Action Taken by Nursing No Action Required 02/18/25 14:47 02/18/25 14:51 02/18/25 16:51 Temperature Temperature Source Pulse Rate 88 100 H Pulse Rate [Apical] Pulse Rate from SpO2 Sensor 87 100 H Respiratory Rate 19 15 Blood Pressure 136/93 Blood Pressure [Right Arm] Blood Pressure Mean 101 Blood Pressure Mean [Right Arm] Pulse Oximetry 95 97 Oxygen Delivery Method Room Air Sepsis Recent Fever Within 48 Hours Sepsis New/Unexplained Change in Mental Status Sepsis Action Taken by Nursing 02/18/25 17:00 Temperature Temperature Source Pulse Rate Pulse Rate [Apical] Pulse Rate from SpO2 Sensor Respiratory Rate Blood Pressure 152/108 H Blood Pressure [Right Arm] Blood Pressure Mean 125 Blood Pressure Mean [Right Arm] Pulse Oximetry Oxygen Delivery Method Sepsis Recent Fever Within 48 Hours Sepsis New/Unexplained Change in Mental Status Sepsis Action Taken by Nursing Laboratory Data 02/19/25 05:39 02/19/25 05:39 Lab Results 02/18/25 02/18/25 Range/Units 14:00 15:29 WBC 4.92 (4.8-10.8) K/ul RBC 4.00 L (4.70-6.10) M/uL Hgb 12.9 L (14.0-18.0) g/dl Hct 37.4 L (42.0-52.0) % MCV 93.5 (80.0-100.0) fL MCH 32.3 (25.0-34.0) pg MCHC 34.5 (32.0-36.0) g/dL RDW Std Deviation 43.8 (36.4-46.3) fL RDW Coeff of [place] 12.7 (11.5-14.5) % Plt Count 175 (130-400) K/uL MPV 10.0 (9.4-12.4) fL Immature Gran % (Auto) 0.4 % Neut % (Auto) 69.5 % Lymph % (Auto) 18.3 % [place] % (Auto) 10.6 % Eos % (Auto) 0.4 % Baso % (Auto) 0.8 % Neut # (Auto) 3.42 (1.40-6.50) K/uL Lymph # (Auto) 0.90 L (1.20-3.40) K/uL [place] # (Auto) 0.52 (0.11-0.59) K/uL Eos # (Auto) 0.02 (0.00-0.50) K/uL Baso # (Auto) 0.04 (0.00-0.20) K/uL Immature Gran # (Auto) 0.02 (0.01-0.20) K/uL PT 12.0 (9.0-12.0) Seconds INR 1.1 (0.9-1.1) APTT 28 (21-31) Seconds PTT Ratio 1.0 Sodium 135 L (136-145) mmol/L Potassium 4.0 (3.5-5.1) mmol/L Chloride 100 (98-107) mmol/L Carbon Dioxide 31 (21-32) mmol/L Anion Gap 4 (3-11) BUN 16 (6-23) mg/dl Creatinine 0.70 (0.6-1.4) mg/dl Est Cr Clr Drug Dosing 82.2 ml/min eGFR 90.30 BUN/Creatinine Ratio 22.9 H (10-20) Glucose 92 (70-99(Fasting)) mg/dl Calcium 9.0 (8.6-10.3) mg/dl Magnesium 1.8 (1.7-2.4) mg/dl Total Bilirubin 0.6 (0.2-1.0) mg/dl AST 17 (13-39) U/L ALT 11 (7-52) U/L Alkaline Phosphatase 59 (34-104) U/L Troponin I High Sens 4.0 (0-20) pg/ml Total Protein 6.3 (6.0-8.3) gm/dl Albumin 3.2 L (3.4-5.0) gm/dl Globulin 3.1 (2.5-4.0) gm/dl Albumin/Globulin Ratio 1.0 (0.9-2) Blood Type A Positive Antibody Screen NEGATIVE Administered Medications Discontinued Medications Aspirin (Aspirin 81 Mg Ectab) 81 mg PO [facility] Stop: 03/21/25 08:59 Last Admin: 02/19/25 08:17 Dose: 81 mg Documented By: MARTHA Aspirin (Aspirin 81 Mg Ectab) 81 mg PO NOW STA Stop: 02/18/25 16:52 Last Admin: 02/18/25 18:22 Dose: 81 mg Documented By: YAW Clopidogrel Bisulfate (Clopidogrel Bisulfate 300 Mg Tab) 300 mg PO NOW STA Stop: 02/18/25 16:50 Last Admin: 02/18/25 18:22 Dose: 300 mg Documented By: YAW Clopidogrel Bisulfate (Clopidogrel Bisulfate 75 Mg Tab) [facility] Stop: 03/21/25 08:59 Last Admin: 02/19/25 08:17 Dose: 75 mg Documented By: MARTHA Famotidine (Famotidine 20 Mg Tab) 20 mg PO BID [facility] Stop: 03/20/25 20:59 Last Admin: 02/19/25 08:17 Dose: 20 mg Documented By: Admin: 02/18/25 20:41 Dose: 20 mg Documented By: KITTY Gadobutrol (Gadobutrol 65ml Vial) 8 ml IV ONCE ONE Stop: 02/18/25 17:23 Last Admin: 02/18/25 17:23 Dose: 8 ml Documented By: IRASEMA Hydrochlorothiazide (Hydrochlorothiazide 25 Mg Tab) 12.5 mg PO [facility] Stop: 03/21/25 08:59 Last Admin: 02/19/25 08:18 Dose: 12.5 mg Documented By: MARTHA Ioversol (Optiray 320 125ml) 119 ml IV ONCE ONE Stop: 02/18/25 13:42 Last Admin: 02/18/25 13:42 Dose: 119 ml Documented By: DONNA Lisinopril (Lisinopril 10 Mg Tab) [facility] [place] Stop: 03/21/25 08:59 Last Admin: 02/19/25 08:18 Dose: 10 mg Documented By: MARTHA Rosuvastatin Calcium (Rosuvastatin Calcium 10 Mg Tab) 10 mg PO [facility] Stop: 03/21/25 08:59 Last Admin: 02/19/25 08:17 Dose: 10 mg Documented By: MARTHA Imaging Data Radiologist's Impression: Chest X-Ray 02/18/25 13:39 XR chest 1V portable HISTORY: 84 years-old Male neuro deficit, acute stroke suspected COMPARISON: CTA neck of same day, chest CT 12/25/2023 TECHNIQUE: AP view of the chest FINDINGS: Cardiac silhouette is mildly enlarged. No pneumothorax, pleural effusion or airspace consolidation. Nipple shadows project over the lung bases. Bones appear grossly intact. IMPRESSION: No acute process. ACT 112: Negative or not required by law. The above report was generated using voice recognition software. It may contain grammatical, syntax or spelling errors. Electronically signed by: Pablo Van M.D. 02/18/2025 2:[address] 02/18/25 13:39 CT SCAN OF THE BRAIN WITHOUT IV CONTRAST CLINICAL HISTORY: Strokelike symptoms. Dizziness. Unsteady gait. COMPARISON STUDY: CT of the brain dated 03/17/2013. TECHNIQUE: Unenhanced CT scan of the brain is performed from the vertex to the skull base. Images are reviewed in the axial, sagittal, coronal planes. A dose lowering technique was utilized adhering to the principles of ALARA. FINDINGS: Brain parenchyma: There is age-related involutional change noting mild subcortical and periventricular microangiopathic disease. There is no hemorrhage, mass effect, or evidence of acute territorial ischemia by CT criteria. Montesinos-white matter differentiation is preserved. No extra-axial fluid collection is seen. Ventricles, sulci, cisterns: Prominent secondary to involutional change. Intracranial vasculature: There is atherosclerotic calcification of the cavernous carotid and vertebral arteries. Calvarium: Unremarkable. Sinuses and mastoids: Mild mucosal thickening is noted within the left frontal sinus, the ethmoid sinuses, the sphenoid sinuses, and the maxillary antra. The mastoid air cells are well pneumatized. Orbits: The bony orbits are grossly intact. There are bilateral ocular lens implants. IMPRESSION: There is no hemorrhage, mass effect, or evidence of acute territorial ischemia by CT criteria. ACT 112: Negative or not required by law. Electronically signed by: Fidel Suazo M.D. 02/18/2025 2:00 PM Head CTA 02/18/25 13:39 CT angio head w con CLINICAL HISTORY: 84 years-old Male with neuro deficit, acute stroke suspected. Acute stroke like simple COMPARISON STUDY: Head CT 02/18/2025 TECHNIQUE: Following the IV administration of 119 cc of Optiray, CT angiogram of the brain was performed from the skull base to the vertex. Images are reviewed in the axial, sagittal, and coronal planes. 3-D MIPS images are created and assessed. IV contrast was administered without complication. All measurements were obtained according to NASCET criteria. A dose lowering technique was utilized adhering to the principles of ALARA. CT DOSE: 1038.19 mGy.cm FINDINGS: CT BRAIN: Dictated separately. Possible arachnoid cyst adjacent to the superior left frontal lobe. CT ANGIOGRAM OF THE BRAIN: The imaged bilateral internal carotid arteries are patent. Tortuosity with fusiform dilation of the distal cervical segments of the internal carotid arteries measuring up to 9 mm bilaterally. The bilateral anterior and middle cerebral arteries are also patent. The vertebrobasilar system and posterior cerebral arteries are widely patent. origin of the left posterior cerebral artery. There is no aneurysm, high-grade stenosis, or proximal branch occlusion identified. Dural sinuses appear patent. IMPRESSION: Unremarkable CTA of the head. ACT 112: Negative or not required by law. The above report was generated using voice recognition software. It may contain grammatical, syntax or spelling errors. Electronically signed by: Pablo Van M.D. 02/18/2025 2:01 PM Neck CTA 02/18/25 13:39 CT ANGIOGRAPHY OF THE NECK WITH CONTRAST CLINICAL HISTORY: neuro deficit, acute stroke suspected COMPARISON STUDY: No previous studies for comparison. Technique: CT angiography of the carotid and vertebral arteries was obtained using Optiray and 3D reconstruction on an independent workstation. NASCET criteria was utilized. Automated exposure control was utilized for the study. A dose lowering technique was utilized adhering to the principles of ALARA. CT DOSE: Findings: Visualized portions of the lung apices reveal a 4 mm subpleural right apical pulmonary nodule. No suspicious thyroid nodules are visualized. There is no pathologic cervical lymphadenopathy. There is no evidence of vertebral artery occlusion. There is a short segment dissection of the proximal right vertebral artery. There is a short segment dissection/fenestration of the left vertebral artery at the C5 level. There are areas of bilateral moderate vertebral artery narrowing due to uncinate spurring. There is no evidence of hemodynamically significant carotid stenosis. There is a 8 mm saccular aneurysm of the upper cervical left internal carotid artery at the C2 level. There is also an 8 mm mm saccular aneurysm of the upper cervical right internal carotid artery the C2 level. IMPRESSION: 1. No evidence of carotid stenosis 2. 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 Short segment dissection of the proximal right vertebral artery 4. Short segment dissection/fenestration of the left vertebral artery at the C5 level 5. Multilevel [id number] artery narrowing due to arthritic changes within the cervical spine with uncinate spurring ACT 112: Negative or not required by law. Electronically signed by: Dread Arteaga M.D. 02/18/2025 2:09 PM Internal Auditory Canal MRI 02/18/25 16:11 Clinical History: Dizziness and vertigo Technique: Multiple T1 and T2-weighted magnetic resonance images were obtained of the brain both before and after the administration of 8 cc of Gadavist intravenous gadolinium contrast. Thin section images were obtained through the internal auditory canals Findings: There is no sign of acute or old infarction with normal-appearing diffusion weighted images. There is cerebral atrophy, within expected limits for the patient's age. There are small areas of increased T2 signal intensity within the periventricular white matter of the cerebral hemispheres bilaterally. This is most likely due to chronic small vessel ischemic disease. No mass lesion or other area of abnormal enhancement is identified. Specifically, there is no definite vestibular schwannoma or other lesion involving the internal auditory canals or cerebellopontine angles bilaterally. No definite abnormality of the proximal trigeminal nerves is seen. There is no intracranial hemorrhage or other fluid collection. No midline shift or other form of herniation is seen. There is no hydrocephalus. The pituitary gland appears normal. Normal flow-voids are seen within the arteries of the [id number]. The orbits appear unremarkable. There is mucosal thickening and mucus retention cyst formation in the maxillary sinuses bilaterally. The mastoid air cells appear clear Impression: 1. No appreciable vestibular schwannoma or other mass lesion 2. Cerebral atrophy and mild chronic small vessel ischemic disease 3. Chronic sinusitis Electronically signed by Twan oMrales 02-18-2025 6:44 PM Head MRA 02/18/25 16:12 Clinical history: Dizziness Technique: Magnetic resonance angiography was performed of the [place] of [place] using a 3 D time of flight technique. Angiographic reconstructions were obtained Findings: The visualized internal carotid arteries appear unremarkable bilaterally. No definite stenosis or aneurysm is identified of the anterior, middle, or posterior cerebral artery circulations bilaterally. The cerebellar arteries are patent. The basilar artery appears unremarkable. No vascular malformation is seen. No other definite abnormality is noted. Impression: Unremarkable MRA of the brain Electronically signed by Twan Morales 02-18-2025 6:11 PM Head/Brain Mag Res Venography 02/18/25 16:12 Technique: Magnetic resonance venography was performed of the brain using [id number] technique. Multiple reconstructions were obtained Findings: There is no definite sign of dural sinus thrombosis. The superior sagittal sinus, inferior sagittal sinus, transverse sinuses, and sigmoid sinuses appear patent. No definite vascular malformation is seen. No other definite abnormality is noted Impression: No definite sign of dural sinus thrombosis Electronically signed by Twan Morales 02-18-2025 6:11 PM Neck MRA 02/18/25 16:12 Clinical History: Dizziness and vertigo Technique: Magnetic resonance angiography was informed of the neck using 2 D time of flight and contrast-enhanced techniques. Multiple angiographic reconstructions were obtained Findings: No stenosis is seen of the common carotid arteries bilaterally. No significant stenosis is seen of the internal carotid arteries bilaterally. The external carotid arteries are patent also. The vertebral arteries are codominant. No stenosis is seen involving them. The visualized aortic arch appears unremarkable. Impression: Unremarkable MRA of the neck with no stenosis seen Electronically signed by Twan Morales 02-18-2025 6:46 PM Discharge Plan Visit Data Chief Complaint: Stroke Alert Stated Complaint: DIZZY, NAUSEA, SHAKING ED Provider: Nichole Domingo Discharge Problem: Dizziness, Dissection of vertebral artery, Aneurysm of carotid artery Patient Disposition: Admitted As Inpatient Condition: Fair Discharge Instructions Interventions: ED Discharge Assessment Last Done: 02/18/25 18:29
[2025-02-18 14:11] LABS: Hematocrit (blood only) 37.4 % (42.0-52.0); Hemoglobin 12.9 g/dl (14.0-18.0); Immature Granulocytes # (auto) 0.02 K/uL (0.01-0.20); Immature Granulocytes % (auto) 0.4 %; Mean Corpuscular Hemoglobin 32.3 pg (25.0-34.0); Mean Corpuscular Volume 93.5 fL (80.0-100.0); Platelet Count 175 K/uL (130-400); RDW Standard Deviation 43.8 fL (36.4-46.3); Red Blood Count 4.00 M/uL (4.70-6.10); White Blood Count 4.92 K/ul (4.8-10.8)
--- NOTE | 2025-02-18 14:11 | CT Scan Report ---
CT ANGIOGRAPHY OF THE NECK WITH CONTRAST CLINICAL HISTORY: neuro deficit, acute stroke suspected COMPARISON STUDY: No previous studies for comparison. Technique: CT angiography of the carotid and vertebral arteries was obtained using [employer] and 3D rec onstruction on an independent workstation. NASCET criteria was utilized. Automated exposure control was utilized for the study. A dose lowering technique was utilized adhering to the principles of ALA RA. CT DOSE: Findings: Visualized portions of the lung apices reveal a 4 mm subpleural right apical pulmonary nodu le. No suspicious thyroid nodules are visualized. There is no pathologic cervical lymphadenopathy. There is no evidence of vertebral artery occlusion. There is a short segment dissection of the proxim al right vertebral artery. There is a short segment dissection/fenestration of the left vertebral art lani at the C5 level. There are areas of bilateral moderate vertebral artery narrowing due to uncinate spurring. There is no evidence of hemodynamically significant carotid stenosis. There is a 8 mm saccular aneury sm of the upper cervical left internal carotid artery at the C2 level. There is also an 8 mm mm saccu lar aneurysm of the upper cervical right internal carotid artery the C2 level. IMPRESSION: 1. No evidence of carotid stenosis 2. 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 Short segment dissection of the proximal right vertebral artery 4. Short segment dissection/fenestration of the left vertebral artery at the C5 level 5. Multilevel uclgrgbh-vv-xkasju artery narrowing due to arthritic changes within the cervical spine with uncinate spurring ACT 112: Negative or not required by law. Electronically signed by: Dread Arteaga M.D. 02/18/2025 2:09 PM
[2025-02-18 14:34] LABS: Alanine Aminotransferase 11.0 U/L (7-52); Albumin Globulin Ratio 1.0 (0.9-2); Albumin Level 3.2 gm/dl (3.4-5.0); Alkaline Phosphatase 59.0 U/L (34-104); Anion Gap 4.0 (3-11); Bilirubin,Total 0.6 mg/dl (0.2-1.0); Blood Urea Nitrogen 16.0 mg/dl (6-23); Calcium 9.0 mg/dl (8.6-10.3); Carbon Dioxide 31.0 mmol/L (21-32); Chloride 100.0 mmol/L (98-107); Creatinine Clr Calc Pharmacy 82.2 ml/min; Globulin 3.1 gm/dl (2.5-4.0); Glucose 92.0 mg/dl (70-99(Fasting)); Magnesium 1.8 mg/dl (1.7-2.4); Potassium 4.0 mmol/L (3.5-5.1); Sodium 135.0 mmol/L (136-145); Total Protein 6.3 gm/dl (6.0-8.3)
[2025-02-18 14:39] LABS: Appearance Urine Clear (Clear); Glucose Urine UA Negative (Negative)
[2025-02-18 14:43] LABS: INR 1.1 (0.9-1.1); Partial Thromboplastin Time 28 Seconds (21-31); Prothrombin Time 12.0 Seconds (9.0-12.0)
--- NOTE | 2025-02-18 14:45 | XRay Report ---
XR chest 1V portable HISTORY: 84 years-old Male neuro deficit, acute stroke suspected COMPARISON: CTA neck of same day, chest CT 12/25/2023 TECHNIQUE: AP view of the chest FINDINGS: Cardiac silhouette is mildly enlarged. No pneumothorax, pleural effusion or airspace consolidation. N ipple shadows project over the lung bases. Bones appear grossly intact. IMPRESSION: No acute process. ACT 112: Negative or not required by law. The above report was generated using voice recognition software. It may contain grammatical, syntax o r spelling errors. Electronically signed by: Pablo Van M.D. 02/18/2025 2:44 PM
--- NOTE | 2025-02-18 15:23 | History & Physical Report ---
Date of Service February 18, 2025 Assessment & Plan (1) Dizziness: (2) Vertebral artery dissection: Plan: Carotid artery aneurysm Pt is an 84 M with hx of COPD group A, HTN, GERD, BPH w/ obstructive symptoms, OA, hx of pseudogout, JUANITO who presents with dizziness and found to have b/l short segment vert. 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 Pt presents w/ dizziness. Ct head, CTA head and neck obtained in ED and neurology consulted in ED CTA findings 1. No evidence of carotid stenosis 2. 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 Short segment dissection of the proximal right vertebral artery 4. Short segment dissection/fenestration of the left vertebral artery at the C5 level 5. Multilevel qtsebztq-ss-yhfraq artery narrowing due to arthritic changes within the cervical spine with uncinate spurring Pt has been feeling well otherwise, yesterday seen at PCP office for routine visit and had no issues at that time. received covid vaccine and vit. B12 injection yesterday Dizziness started today around 10 AM w/ "hot flash" feeling. In ED found hypertensive. BP improved without any intervention. Discussed and clarified recommended imaging w/ Dr. Hanson w/ [facility]. MRI brain, MRV, MRA ordered. Pt started on ASA, plavix. Will do complete stroke work-up including echo, fasting lipid panel, A1c, neuro checks and will further discuss w/ [facility] - routine consult. Chronic conditions: COPD group A - no exacerbation HTN - took his home meds this AM, BP currently 136/93, cont. to monitor, holding lisinopril, hctz for now given contrast today GERD - cont. home famotidine BPH w/ obstructive symptoms, OA, hx of pseudogout, JUANITO - no current issues, cont. to monitor History of Present Illness Chief Complaint: Dizziness Primary Care Provider: Manuel Cortés, Pt is an 84 M with hx of COPD group A, HTN, GERD, BPH w/ obstructive symptoms, OA, hx of pseudogout, JUANITO who presents with dizziness and found to have b/l short segment vert. 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 Neurology was consulted in ED and recommended pt be admitted and further imaging obtained. Pt was seen at outpt PCP office yesterday - routine visit and pt was feeling well. Pt's is also present at the bedside and helps provide history. Pt received covid vaccine and vit B12 injection to his left arm yesterday. Noticed some mild swelling otherwise was not bothered too much by that. This AM woke up w/o any issues but later as he was sitting by the computer he developed "hot flash" feeling. He says he gets hypoglycemic episodes often - but his glucose level was 99. His also checked his BP and it was a bit elevated SBP in 160s, which is not usual for him. He continued to feel dizzy/unsteady and so presented to ER for further evaluation. In the ED, CT head, CTA head and neck were obtained and discussed w/ tele stroke neurologist from [facility] , Dr. Hanson. CTA neck showed b/l short segment vert. 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 It was recommended to obtain further imaging and start pt on ASA and plavix. On my evaluation, pt was walking from bathroom to bed by himself but did not feel too well and sat down. Pt denies any fever, chills, chest pain, shortness of breath, abd. pain, n/v. Confirms he felt very well yesterday at his PCP's office. Denies any weakness in any extremity. Denies any double vision or any change in vision. Cranial nerves checked and intact. Allergies Allergy/AdvReac Type Severity Reaction Status Date / Time venom-honey bee Allergy Severe Swelling Verified 12/25/23 18:16 of Lip/Tongue/Throat methocarbamol Allergy Unknown Unknown Verified 12/25/23 18:16 Home Medications Medication Instructions Recorded Confirmed Type albuterol sulfate 90 mcg/actuation 2 puff inhalation Q6H PRN Wheezing 07/29/18 02/18/25 History aerosol inhaler (Ventolin HFA) famotidine 20 mg tablet (Pepcid) 20 mg PO BID 05/24/21 02/18/25 History Vegan Vitamin 1 dose PO QAM 11/22/21 02/18/25 History lisinopril 10 mg tablet 10 mg PO QAM 11/22/21 02/18/25 History lorazepam 0.5 mg tablet (Ativan) 0.5 mg PO DAILY PRN Anxiety 11/22/21 02/18/25 H istory potassium chloride 10 mEq 10 meq PO QAM 11/22/21 02/18/25 History tablet,extended release hydrochlorothiazide 12.5 mg capsule 12.5 mg PO QAM 12/25/23 02/18/25 History krill oil 500 mg capsule 500 mg PO QAM 12/25/23 02/18/25 History rosuvastatin 10 mg tablet 10 mg PO QAM 12/25/23 02/18/25 History Past Med/Surg History Problem List (Updated 02/18/25 @ 15:16 by Mic Nelson MD) Vertebral artery dissection Dizziness (Acute) Pneumonia (Acute) Pneumonia Marijuana smoker Chronic cough Upper airway cough syndrome Allergic rhinitis with postnasal drip Ex-smoker Asthma-COPD overlap syndrome Encounter for pre-operative examination Hypertension (Chronic) GERD (gastroesophageal reflux disease) (Chronic) Allergic reaction to bee sting (Acute) Hyperlipidemia COPD (chronic obstructive pulmonary disease) Hypoglycemia Lower resp. tract infection Retroperitoneal mass Advanced COPD Asthma Depression with anxiety Hypertension Medical History Abdominal mass GERD (gastroesophageal reflux disease) Anxiety COPD (chronic obstructive pulmonary disease) HTN (hypertension) History of colon polyps Hypercholesterolemia Surgical History S/P excision of lipoma History of bilateral inguinal hernia repair H/O colonoscopy (~2017) S/P repair of ventral hernia (07/30/10) Laparoscopic ventral hernia repair Dr. Sierra History of knee surgery Rt History of rotator cuff surgery Rt Family History Mother Family history of CABG Dissecting aortic aneurysm (any part), thoracic Heart disease Cardiac disorder Hypertension Father Prostate cancer Hypertension Stroke Aunt Breast cancer Uncle Colorectal cancer Uncle Myocardial infarction Daughter Colorectal cancer Other No family history of adverse response to anesthesia Denies family history of Ovarian cancer Social History Smoking Status: Never smoker Tobacco Type: Cigarettes packs per day: 1; Second Hand Exposure: No; Do You Dip or Chew Tobacco: No; Hx Alcohol Use: Yes Alcohol type: wine Alcohol Intake Frequency: 4 or More x per/Week Hx Substance Use: Yes Last Used Substance Other:: 2 weeks ago Substance Use Type Other:: 6 MON AGO Preferred Language: Faroese Communication Ability: Effective Manager Integrated Required: No Beliefs That Will Affect Care: None marital status: Current Living Situation: Spouse current occupational status: retired How many Children do You have: 3 Feels Safe at Home: Yes Diet: vegan caffeine: Yes (coffee ) during the past year weight has: remained stable Dental Care, Regularly: Yes Physical Activity Frequency: Daily Seatbelt Use: always Sunscreen Use: No Assistive Devices: None Review of Systems Review of Systems: All systems reviewed & are unremarkable except as noted in Subjective Physical Exam Constitutional: WD/WN, vitals as above Eyes: PERRL, conjunctivae normal, anicteric sclerae ENMT: external ear and nose normal, oropharynx normal Neck: trachea midline, no thyromegaly Respiratory: normal respiratory effort, lungs clear to auscultation Cardiovascular: RRR, no murmur, no edema Chest (Breasts): Chest: normal inspection of chest Gastrointestinal (Abdomen): normal bowel sounds, soft, nontender, no hepatospl enomegaly Musculoskeletal: no cyanosis or clubbing, extremities motor strength 5/5 Skin: no rashes, warm and dry Neurologic: PERRL, EOMI, accommodation nl, no face palsy, no dysarthria (cranial nerves intact, moves extremities) Psychiatric: A+Ox3, euthymic affect Results & Data Results & Data Vital Signs (Past 12 Hours) Vital Signs Temp Pulse Pulse Resp BP BP Pulse Ox 02/18/25 14:51 88 19 95 02/18/25 14:47 136/93 02/18/25 14:33 92 H 02/18/25 13:58 82 16 156/99 H 96 02/18/25 13:23 36.3 C L 77 18 174/100 H 94 O2 Del Method 02/18/25 14:51 Room Air 02/18/25 14:47 02/18/25 14:33 02/18/25 13:58 Room Air 02/18/25 13:23 Room Air Laboratory Results 02/18/25 02/18/25 Range/Units Unknown 14:00 WBC 4.92 (4.8-10.8) K/ul RBC 4.00 L (4.70-6.10) M/uL Hgb 12.9 L (14.0-18.0) g/dl Hct 37.4 L (42.0-52.0) % MCV 93.5 (80.0-100.0) fL MCH 32.3 (25.0-34.0) pg MCHC 34.5 (32.0-36.0) g/dL RDW Std Deviation 43.8 (36.4-46.3) fL RDW Coeff of [place] 12.7 (11.5-14.5) % Plt Count 175 (130-400) K/uL MPV 10.0 (9.4-12.4) fL Immature Gran % (Auto) 0.4 % Neut % (Auto) 69.5 % Lymph % (Auto) 18.3 % [place] % (Auto) 10.6 % Eos % (Auto) 0.4 % Baso % (Auto) 0.8 % Neut # (Auto) 3.42 (1.40-6.50) K/uL Lymph # (Auto) 0.90 L (1.20-3.40) K/uL [place] # (Auto) 0.52 (0.11-0.59) K/uL Eos # (Auto) 0.02 (0.00-0.50) K/uL Baso # (Auto) 0.04 (0.00-0.20) K/uL Immature Gran # (Auto) 0.02 (0.01-0.20) K/uL PT 12.0 (9.0-12.0) Seconds INR 1.1 (0.9-1.1) APTT 28 (21-31) Seconds PTT Ratio 1.0 Sodium 135 L (136-145) mmol/L Potassium 4.0 (3.5-5.1) mmol/L Chloride 100 (98-107) mmol/L Carbon Dioxide 31 (21-32) mmol/L Anion Gap 4 (3-11) BUN 16 (6-23) mg/dl Creatinine 0.70 (0.6-1.4) mg/dl Est Cr Clr Drug Dosing 82.2 ml/min eGFR 90.30 BUN/Creatinine Ratio 22.9 H (10-20) Glucose 92 (70-99(Fasting)) mg/dl Calcium 9.0 (8.6-10.3) mg/dl Magnesium 1.8 (1.7-2.4) mg/dl Total Bilirubin 0.6 (0.2-1.0) mg/dl AST 17 (13-39) U/L ALT 11 (7-52) U/L Alkaline Phosphatase 59 (34-104) U/L Troponin I High Sens 4.0 (0-20) pg/ml Total Protein 6.3 (6.0-8.3) gm/dl Albumin 3.2 L (3.4-5.0) gm/dl Globulin 3.1 (2.5-4.0) gm/dl Albumin/Globulin Ratio 1.0 (0.9-2) Urine Color Yellow Urine Appearance Clear (Clear) Urine pH 8.0 H (4.5-7.5) Ur Specific [place] 1.018 (1.000-1.030) Urine Protein Negative (Negative) Urine Glucose (UA) Negative (Negative) Urine Ketones Negative (Negative) Urine Blood Negative (Negative) Urine Nitrite Negative (Negative) Urine Bilirubin Negative (Negative) Urine Urobilinogen Negative (Negative) Ur Leukocyte Esterase Negative (Negative) Urine Comment Diagnostic Findings Head CT FINDINGS: Brain parenchyma: There is age-related involutional change noting mild subcortical and periventricular microangiopathic disease. There is no hemorrhage, mass effect, or evidence of acute territorial ischemia by CT crit eria. Montesinos-white matter differentiation is preserved. No extra-axial fluid collection is seen. Ventricles, sulci, cisterns: Prominent secondary to involutional change. Intracranial vasculature: There is atherosclerotic calcification of the cavernous carotid and vertebral arteries. Calvarium: Unremarkable. Sinuses and mastoids: Mild mucosal thickening is noted within the left frontal sinus, the ethmoid sinuses, the sphenoid sinuses, and the maxillary antra. The mastoid air cells are well pneumatized. Orbits: The bony orbits are grossly intact. There are bilateral ocular lens implants. IMPRESSION: There is no hemorrhage, mass effect, or evidence of acute territorial ischemia by CT criteria. CTA head/neck CT ANGIOGRAM OF THE BRAIN: The imaged bilateral internal carotid arteries are patent. Tortuosity with fusiform dilation of the distal cervical segments of the internal carotid arteries measuring up to 9 mm bilaterally. The bilateral anterior and middle cer ebral arteries are also patent. The vertebrobasilar system and posterior cerebral arteries are widely patent. origin of the left posterior cerebral artery. There is no aneurysm, high-grade stenosis, or proximal branch occlusion identified. Dural sinuses appear patent. IMPRESSION: Unremarkable CTA of the head. Findings: Visualized portions of the lung apices reveal a 4 mm subpleural right apical pulmonary nodule. No suspicious thyroid nodules are visualized. There is no pathologic cervical lymphadenopathy. There is no evidence of vertebral artery occlusion. There is a short segment dissection of the proximal right vertebral artery. There is a short segment dissection/fenestration of the left vertebral artery at the C5 level. There are areas of bilateral moderate vertebral artery narrowing due to uncinate spurring. There is no evidence of hemodynamically significant carotid stenosis. There is a 8 mm saccular aneurysm of the upper cervical left internal carotid artery at the C2 level. There is also an 8 mm mm saccular aneurysm of the upper cervical right internal carotid artery the C2 level. IMPRESSION: 1. No evidence of carotid stenosis 2. 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 Short segment dissection of the proximal right vertebral artery 4. Short segment dissection/fenestration of the left vertebral artery at the C5 level 5. Multilevel dypnfioq-wb-bxcfps artery narrowing due to arthritic changes within the cervical spine with uncinate spurring
[2025-02-18] MEDS ORDERED: ACETAMINOPHEN 325 MG TAB PO PRN (16:19)
[2025-02-18] MEDS: GADOBUTROL 65ML VIAL IV ONE (17:23)
--- NOTE | 2025-02-18 18:11 | Magnetic Resonance Report ---
Clinical history: Dizziness Technique: Magnetic resonance angiography was performed of the [place] of [place] using a 3 D time of flight technique. Angiographic reconstructions were obtained Findings: The visualized internal carotid arteries appear unremarkable bilaterally. No definite stenosis or aneurysm is identified of the anterior, middle, or posterior cerebral artery circulations bilaterally. The cerebellar arteries are patent. The basilar artery appears unremarkable. No vascular malformation is seen. No other definite abnormality is noted. Impression: Unremarkable MRA of the brain Electronically signed by Twan Morales 02-18-2025 6:11 PM
--- NOTE | 2025-02-18 18:12 | Magnetic Resonance Report ---
Technique: Magnetic resonance venography was performed of the brain using [id number] technique. Multiple reconstructions were obtained Findings: There is no definite sign of dural sinus thrombosis. The superior sagittal sinus, inferior sagittal sinus, transverse sinuses, and sigmoid sinuses appear patent. No definite vascular malformation is seen. No other definite abnormality is noted Impression: No definite sign of dural sinus thrombosis Electronically signed by Twan Morales 02-18-2025 6:11 PM
[2025-02-18] MEDS: CLOPIDOGREL BISULFATE 300 MG TAB PO STA (18:22)
[2025-02-18] MEDS: ASPIRIN 81 MG ECTAB PO STA (18:22)
--- NOTE | 2025-02-18 18:45 | Magnetic Resonance Report ---
Clinical History: Dizziness and vertigo Technique: Multiple T1 and T2-weighted magnetic resonance images were obtained of the brain both before and after the administration of 8 cc of Gadavist intravenous gadolinium contrast. Thin section images were obtained through the internal auditory canals Findings: There is no sign of acute or old infarction with normal-appearing diffusion weighted images. There is cerebral atrophy, within expected limits for the patient's age. There are small areas of increased T2 signal intensity within the periventricular white matter of the cerebral hemispheres bilaterally. This is most likely due to chronic small vessel ischemic disease. No mass lesion or other area of abnormal enhancement is identified. Specifically, there is no definite vestibular schwannoma or other lesion involving the internal auditory canals or cerebellopontine angles bilaterally. No definite abnormality of the proximal trigeminal nerves is seen. There is no intracranial hemorrhage or other fluid collection. No midline shift or other form of herniation is seen. There is no hydrocephalus. The pituitary gland appears normal. Normal flow-voids are seen within the arteries of the rglcgp-[id number]-Irafwn. The orbits appear unremarkable. There is mucosal thickening and mucus retention cyst formation in the maxillary sinuses bilaterally. The mastoid air cells appear clear Impression: 1. No appreciable vestibular schwannoma or other mass lesion 2. Cerebral atrophy and mild chronic small vessel ischemic disease 3. Chronic sinusitis Electronically signed by Twan Morales 02-18-2025 6:44 PM
--- NOTE | 2025-02-18 18:46 | Magnetic Resonance Report ---
Clinical History: Dizziness and vertigo Technique: Magnetic resonance angiography was informed of the neck using 2 D time of flight and contrast-enhanced techniques. Multiple angiographic reconstructions were obtained Findings: No stenosis is seen of the common carotid arteries bilaterally. No significant stenosis is seen of the internal carotid arteries bilaterally. The external carotid arteries are patent also. The vertebral arteries are codominant. No stenosis is seen involving them. The visualized aortic arch appears unremarkable. Impression: Unremarkable MRA of the neck with no stenosis seen Electronically signed by Twan Morales 02-18-2025 6:46 PM
[2025-02-18] MEDS ORDERED: ALBUTEROL HFA 8 GM INHALER INH PRN (20:17)
[2025-02-18] MEDS: FAMOTIDINE 20 MG TAB PO SCH (20:41)
--- NOTE | 2025-02-18 21:46 | Electrocardiogram Report ---
Test Reason : Blood Pressure : */* mmHG Vent. Rate : 88 BPM Atrial Rate : 88 BPM P-R Int : 194 ms QRS Dur : 92 ms QT Int : 356 ms P-R-T Axes : 41 4 -3 degrees QTcB Int : 430 ms Normal sinus rhythm Nonspecific ST and T wave abnormality Abnormal ECG When compared with ECG of 25-Dec-2023 23:56, Premature ventricular complexes are no longer Present Premature supraventricular complexes are no longer Present Confirmed by Marcellus Boles ([id number]) on 02/18/2025 9:46:16 PM Referred By: REFERRED SELF Confirmed By: Marcellus Boles
[2025-02-19 06:11] LABS: Hematocrit (blood only) 36.6 % (42.0-52.0); Hemoglobin 12.7 g/dl (14.0-18.0); Mean Corpuscular Hemoglobin 32.3 pg (25.0-34.0); Mean Corpuscular Volume 93.1 fL (80.0-100.0); Platelet Count 165 K/uL (130-400); RDW Standard Deviation 43.3 fL (36.4-46.3); Red Blood Count 3.93 M/uL (4.70-6.10); White Blood Count 4.40 K/ul (4.8-10.8)
[2025-02-19 06:33] LABS: Anion Gap 6.0 (3-11); Blood Urea Nitrogen 15.0 mg/dl (6-23); Calcium 8.9 mg/dl (8.6-10.3); Carbon Dioxide 30.0 mmol/L (21-32); Chloride 102.0 mmol/L (98-107); Cholesterol 162.0 mg/dl (0-200); Creatinine Clr Calc Pharmacy 83.5 ml/min; Glucose 83.0 mg/dl (70-99(Fasting)); HDL Cholesterol 78.0 mg/dl; Magnesium 1.9 mg/dl (1.7-2.4); Potassium 3.6 mmol/L (3.5-5.1); Sodium 138.0 mmol/L (136-145); Triglycerides 70.0 mg/dl (0-150)
[2025-02-19 08:03] LABS: Hemoglobin A1C 4.8 % (4.5-5.6)
[2025-02-19] MEDS: CLOPIDOGREL BISULFATE 75 MG TAB PO SCH (08:17)
[2025-02-19] MEDS: ROSUVASTATIN CALCIUM 10 MG TAB PO SCH (08:17)
[2025-02-19] MEDS: ASPIRIN 81 MG ECTAB PO SCH (08:17)
[2025-02-19] MEDS: hydroCHLOROthiazide 25 MG TAB PO SCH (08:18)
[2025-02-19 11:34] VITALS: BP 143/80; PULSE 72; RESP 22; TEMP 97.7; O2SAT 95
--- NOTE | 2025-02-19 13:51 | XCELERA ---
[id number]
--- NOTE | 2025-02-19 15:23 | Discharge Summary ---
Date of Service February 19, 2025 Admission HPI Per Admitting Provider Pt is an 84 M with hx of COPD group A, HTN, GERD, BPH w/ obstructive symptoms, OA, hx of pseudogout, JUANITO who presents with dizziness and found to have b/l short segment vert. 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 Neurology was consulted in ED and recommended pt be admitted and further imaging obtained. Pt was seen at outpt PCP office yesterday - routine visit and pt was feeling well. Pt's is also present at the bedside and helps provide history. Pt received covid vaccine and vit B12 injection to his left arm yesterday. Noticed some mild swelling otherwise was not bothered too much by that. This AM woke up w/o any issues but later as he was sitting by the computer he developed "hot flash" feeling. He says he gets hypoglycemic episodes often - but his glucose l evel was 99. His also checked his BP and it was a bit elevated SBP in 160s, which is not usual for him. He continued to feel dizzy/unsteady and so presented to ER for further evaluation. In the ED, CT head, CTA head and neck were obtained and discussed w/ tele stroke neurologist from [facility] , Dr. Hanson. CTA neck showed b/l short segment vert. 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 It was recommended to obtain further imaging and start pt on ASA and plavix. On my evaluation, pt was walking from bathroom to bed by himself but did not fee l too well and sat down. Pt denies any fever, chills, chest pain, shortness of breath, abd. pain, n/v. Confirms he felt very well yesterday at his PCP's office. Denies any weakness in any extremity. Denies any double vision or any change in vision. Cranial nerves checked and intact. Admission Exam Per Admitting Provider Constitutional: WD/WN, vitals as above Eyes: PERRL, conjunctivae normal, anicteric sclerae ENMT: external ear and nose normal, oropharynx normal Neck: trachea midline, no thyromegaly Respiratory: normal respiratory effort, lungs clear to auscultation Cardiovascular: RRR, no murmur, no edema Chest (Breasts): Chest: normal inspection of chest Gastrointestinal (Abdomen): normal bowel sounds, soft, nontender, no hepatosplenomegaly Musculoskeletal: no cyanosis or clubbing, extremities motor strength 5/5 Skin: no rashes, warm and dry Neurologic: PERRL, EOMI, accommodation nl, no face palsy, no dysarthria (cranial nerves intact, moves extremities) Psychiatric: A+Ox3, euthymic affect Principal Diagnosis Dizziness Concern for bilateral vertebral artery dissection Discharge Exam GENERAL: Alert and oriented x3. NAD, on RA. HEENT: No pallor, no icterus. Pupils equal, round and reactive to light. Oral mucosa moist. NECK: No JVD, no neck masses. HEART: S1 and S2 heard. Regular rate and rhythm. No murmur, no gallop. RESPIRATORY SYSTEM: Normal AP diameter. No accessory muscle use. No wheezing, no crackles. ABDOMEN: Soft, bowel sounds present, nontender, no distention. CENTRAL NERVOUS SYSTEM: No facial droop. Speech is clear. Obeys simple commands. Moves extremities. EXTREMITIES: No edema, no erythema seen. Discharge Data Allergies Allergy/AdvReac Type Severity Reaction Status Date / Time venom-honey bee Allergy Severe Swelling Verified 12/25/23 18:16 of Lip/Tongue/Throat methocarbamol Allergy Unknown Unknown Verified 12/25/23 18:16 Consultations 02/18/25 15:10 ED Decision to Admit Stat 02/18/25 15:21 Consult Neurology Routine Ordered Studies 02/18/25 13:39 CT angio head w con Stat CT angio neck with con Stat CT head/brain wo con Stat 02/18/25 16:11 MR brain IAC wo/w con Routine 02/18/25 16:12 MR angio head wo con Routine MR venography head wo con Routine MRI Angio Neck [MR angio neck wo/w con] Routine Hospital Course (1) Dizziness: (2) Vertebral artery dissection: per Prior attending with addendum: Carotid artery aneurysm Pt is an 84 M with hx of COPD group A, HTN, GERD, BPH w/ obstructive symptoms, OA, hx of pseudogout, JUANITO who presents with dizziness and found to have b/l short segment vert. 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 Pt presents w/ dizziness. Ct head, CTA head and neck obtained in ED and neurology consulted in ED CTA findings 1. No evidence of carotid stenosis 2. 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 Short segment dissection of the proximal right vertebral artery 4. Short segment dissection/fenestration of the left vertebral artery at the C5 level 5. Multilevel ihjdavdd-gc-ekwomp artery narrowing due to arthritic changes within the cervical spine with uncinate spurring Pt has been feeling well otherwise, yesterday seen at PCP office for routine visit and had no issues at that time. received covid vaccine and vit. B12 injection yesterday Dizziness started today around 10 AM w/ "hot flash" feeling. In ED found hypertensive. BP improved without any intervention. Discussed and clarified recommended imaging w/ Dr. Hanson w/ [facility]. MRI brain, MRV, MRA ordered. Pt started on ASA, plavix. Will do complete stroke work-up including echo, fasting lipid panel, A1c, neuro checks and will further discuss w/ [facility] - routine consult. Chronic conditions: COPD group A - no exacerbation HTN - took his home meds this AM, BP currently 136/93, cont. to monitor, holding lisinopril, hctz for now given contrast today GERD - cont. home famotidine BPH w/ obstructive symptoms, OA, hx of pseudogout, JUANITO - no current issues, cont. to monitor Addendum 02/19/2025: Patient seen and examined at bedside as a follow-up of carotid artery aneurysm and concern for bilateral vertebral artery dissection. Patient's MRA head and MRA neck along with head and brain venography reviewed with no acute findings. Patient reports resolution of his dizziness. Case was discussed with neurology, dionicio for discharge with DAPT for 3 months and atorvastatin high-dose. Patient to follow-up with neurology and has to have 3- month CTA of head and neck. Echo reviewed, EF 60 to 65%, no interatrial septum defect/shunt noted. Patient is hemodynamically stable and would like to go home. Patient is being discharged with following instructions at the point of discharge: Follow-up with your primary care physician within a week time and likely you will need labs CBC/CMP/magnesium/phosphorus. You are being discharged on aspirin and Plavix for 3 months. Avoid omeprazole while on Plavix. You will need repeat CT angiogram of head and neck in 3 months, coordinate with the PCP office or neurology office to set up the test. You will need to follow-up with neurology in 1 month time, coordinate with the PCP office to set up the referral. Take your medications as prescribed. Please make sure that you are able to get your medications today by calling your pharmacy before you leave the hospital so that your treatment continuity is not broken. Home Health Attestation I certify that this patient is under my care and that I, or a physicians records assistant working with me, had a face to-face encounter that meets the home health gssy-ft-zzjy encounter requirements with this patient. The encounter with the patient was in whole, or in part, for the following medical condition, which is the primary reason for home health care (list medical condition): I certify that, based on my findings, the following services are medically necessary home health services: My clinical findings support the need for the above services because: Further, I certify that my clinical findings support that this patient is homebound (i.e. absences from home require considerable and taxing effort and are for medical reasons or catholic services or infrequently or of short duration when for other reasons) because: Certification for Home Health Services: Based on the above findings, I certify that this patient is confined to the home and needs intermittent longterm care, physical therapy and/or speech therapy or continues to need occupational therapy. The patient is under my care, and I have initiated the establishment of the plan of care. This patient will be followed by a physician who will periodically review the plan of care. Total Time Total Time Spent Total Time Spent (In Minutes): 45 Discharge Plan Discharge Items Patient Disposition: Home - Self-Care Reason For Visit: DIZZINESS Discharge Diagnosis: Dizziness Concern for bilateral vertebral artery dissection Activity: Resume your previous activity Non-emergency contact: Primary Care Provider Call non-emergency contact if: you have any medication questions Follow-up/Referrals: Manuel Cortés, [Primary Care Provider] - Diet: Regular Addtl Attending Provider Instructions: Follow-up with your primary care physician within a week time and likely you will need labs CBC/CMP/magnesium/phosphorus. You are being discharged on aspirin and Plavix for 3 months. Avoid omeprazole while on Plavix. You will need repeat CT angiogram of head and neck in 3 months, coordinate with the PCP office or neurology office to set up the test. You will need to follow-up with neurology in 1 month time, coordinate with the PCP office to set up the referral. Take your medications as prescribed. Please make sure that you are able to get your medications today by calling your pharmacy before you leave the hospital so that your treatment continuity is not broken. Pending Studies at Discharge: No Stand-Alone Forms: My [facility], Smoking Cessation Medications and DC Order Prescriptions: New clopidogrel 75 mg Tablet 75 mg PO QAM Qty: 30 0RF aspirin 81 mg Tablet,Delayed Release (Dr/Ec) 81 mg PO QAM Qty: 30 0RF atorvastatin 40 mg tablet 40 mg PO DAILY Qty: 30 0RF Continued famotidine [Pepcid] 20 mg tablet 20 mg PO BID albuterol sulfate [Ventolin HFA] 90 mcg/actuation Hfa Aerosol Inhaler 2 puff INHALATION Q6H PRN (Reason: Wheezing) Patient Comments: 02/18- no fill history unable to verify lorazepam [Ativan] 0.5 mg Tablet 0.5 mg PO DAILY PRN (Reason: Anxiety) Patient Comments: 02/18-last filled 07/28 15 day supply #15 Vegan Vitamin 1 dose PO QAM Patient Comments: 02/18- otc unable to verify potassium chloride 10 mEq tablet extended release 10 meq PO QAM lisinopril 10 mg tablet 10 mg PO QAM Rx Instructions: TAKE 1 TABLET BY MOUTH ONCE DAILY hydrochlorothiazide 12.5 mg capsule 12.5 mg PO QAM krill oil 500 mg Capsule 500 mg PO QAM Patient Comments: 02/18- otc unable to verify Discontinued rosuvastatin 10 mg tablet 10 mg PO QAM Discharge Orders: Discharge Order (Routine); Ordered 02/19/25 Ordered By: Julius Trevino Admission Data Admit Date/Time: 02/18/25 16:19 Attending Provider: Julius Trevino Admit Provider: Mic Nelson Primary Care Provider: Manuel Cortés Other Providers: Mic Nelson; Kailey Guevara
--- NOTE | 2025-02-19 15:31 | Neurology Consultation ---
Date of Consultation February 19, 2025 Assessment & Plan (1) Dissection of vertebral artery: Patient has a small right vertebral artery dissection not well appreciated on MRA. No stroke on MRI. Patient is antiplatelet naive. -Recommend continue aspirin 81 mg daily lifelong - recommend start atorvastatin 40 mg daily - recommend continue clopidogrel 75 mg daily for at least 3 months -patient will need repeat CT angiogram head and neck in 3-6 months to ensure resolution of the dissection - most dissections will spontaneously resolve, but a small percentage will become chronic -patient will need to follow up in stroke Neurology Clinic in 1 month after discharge -I did advise the patient that should he develop any acute neurologic symptom, he should present immediately to the Emergency Department for further evaluation. This includes severe onset dizziness, nausea, vomiting, unilateral weakness, numbness, paresthesias, visual deficits, or language deficits. -The patient tells me he has baseline vertigo but it tends to be more mild than the symptoms which brought him in. (2) Dizziness: Patient has underlying vertigo and also posterior circulation dissection. Management as above. I discussed my recommendations with Dr. Julius Trevino. Thank you for this consult. Please call with questions. Telehealth Consultation Telehealth Information Telehealth Information: I performed this visit using a real-time telehealth connection between my location and the patients originating location ([facility]). After connecting through interactive tele-video, patient was identified by name and date of and/or wristband check.Patient (or authorized healthcare rental sales representative) was informed that this was a telemedicine visit and it was being conducted confidentially over secure lines. My office door was closed and no one else was present in the room with me.Patient (or authorized healthcare rental sales representative) provided consent to proceed with the visit, expressed an understanding of privacy and security of the telemedicine visit, and gave permission to have a hospital rental sales representative in the room in order to assist with the visit and to conduct portions of the visit, as needed. I informed the patient (or authorized healthcare rental sales representative) that I reviewed their record and presented the opportunity for them to ask any questions regarding the visit today. The patient agreed to participate. History of Present Illness Reason for Consultation: right vertebral artery dissection Attending Physician: Julius Trevino MD History of Present Illness Lul Dalal is an 84-year-old male with a past medical history of COPD, hypertension, GERD, BPH, osteoarthritis, gout, GERD who presented to [facility] Emergency Department on 02/18/2025 with a acute-onset dizziness, found to have a right vertebral artery dissection and bilateral cervical ICA saccular aneurysms. The patient was antiplatelet naive. He was started on aspirin 81 mg daily and clopidogrel 75 mg daily. MRI brain was negative for acute stroke. I saw and examined the patient at bedside. His and daughter are present for the encounter and also have questions. His physical exam has returned to normal. We discussed with the patient's imaging and stroke risk factors. The patient understands to return to the Emergency Department should he develop any acute onset dizziness, nausea, vomiting, incoordination, nystagmus, upper and lower extremity ataxia, weakness, numbness, or paresthesias. He has no history of trauma or chiropractic manipulation. I suspect the dissection is spontaneous. He has had some elevated blood pressure however he says that at home his blood pressure has been largely within normal limits. We discussed avoiding strenuous activity and maintaining normotension. No smoking. All questions and concerns were answered. Allergies Allergy/AdvReac Type Severity Reaction Status Date / Time venom-honey bee Allergy Severe Swelling Verified 12/25/23 18:16 of Lip/Tongue/Throat methocarbamol Allergy Unknown Unknown Verified 12/25/23 18:16 Home Medications Medication Instructions Recorded Confirmed Type albuterol sulfate 90 mcg/actuation 2 puff inhalation Q6H PRN Wheezing 07/29/18 02/18/25 History aerosol inhaler (Ventolin HFA) famotidine 20 mg tablet (Pepcid) 20 mg PO BID 05/24/21 02/18/25 History Vegan Vitamin 1 dose PO QAM 11/22/21 02/18/25 History lisinopril 10 mg tablet 10 mg PO QAM 11/22/21 02/18/25 History lorazepam 0.5 mg tablet (Ativan) 0.5 mg PO DAILY PRN Anxiety 11/22/21 02/18/25 History potassium chloride 10 mEq 10 meq PO QAM 11/22/21 02/18/25 History tablet,extended release hydrochlorothiazide 12.5 mg capsule 12.5 mg PO QAM 12/25/23 02/18/25 History krill oil 500 mg capsule 500 mg PO QAM 12/25/23 02/18/25 History aspirin 81 mg tablet,delayed 81 mg PO QAM #30 tabs 02/19/25 Rx release atorvastatin 40 mg tablet 40 mg PO DAILY #30 tabs 02/19/25 Rx clopidogrel 75 mg tablet 75 mg PO QAM #30 tabs 02/19/25 Rx Patient History Medical History Abdominal mass GERD (gastroesophageal reflux disease) Anxiety COPD (chronic obstructive pulmonary disease) HTN (hypertension) History of colon polyps Hypercholesterolemia Surgical History S/P excision of lipoma History of bilateral inguinal hernia repair H/O colonoscopy (~2017) S/P repair of ventral hernia (07/30/10) Laparoscopic ventral hernia repair Dr. Sierra History of knee surgery Rt History of rotator cuff surgery Rt Family History Mother Family history of CABG Dissecting aortic aneurysm (any part), thoracic Heart disease Cardiac disorder Hypertension Father Prostate cancer Hypertension Stroke Aunt Breast cancer Uncle Colorectal cancer Uncle Myocardial infarction Daughter Colorectal cancer Other No family history of adverse response to anesthesia Denies family history of Ovarian cancer Social History Smoking Status: Never smoker packs per day: 1; Second Hand Exposure: No; Do You Dip or Chew Tobacco: No; Hx Alcohol Use: Yes Alcohol type: beer Alcohol Intake Frequency: 4 or More x per/Week Hx Substance Use: Yes Last Used Substance Other:: 2 weeks ago Substance Use Type Other:: 6 MON AGO Preferred Language: Setswana Communication Ability: Effective 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 Beliefs That Will Affect Care: None marital status: Current Living Situation: Spouse current occupational status: retired How many Children do You have: 3 Feels Safe at Home: Yes Diet: vegan caffeine: Yes (coffee ) during the past year weight has: remained stable Dental Care, Regularly: Yes Physical Activity Frequency: Daily Seatbelt Use: always Sunscreen Use: No Assistive Devices: None Review of Systems ROS reviewed and negative except as above Physical Exam Physical Exam: General Appearance: Alert HEENT: anicteric sclera, no scleral injection Lungs: respirations appear comfortable, no obvious increased work of breathing Extremities: No cyanosis or fingernail clubbing Skin: No rashes in exposed skin areas Objective Limited due to Televideo encounter Physical Exam: General Appearance: Alert Neurological Examination: Mental status: Alert and oriented. No dysarthria. Cranial Nerves: Extraocular movements intact and spontaneous. Face symmetric. Sensory: Normal sensory exam to light touch. Strength: Antigravity in all extremities without drift Results & Data Vital Signs (Past 12 Hours) Vital Signs Temp Pulse Pulse Resp BP Pulse Ox O2 Del Method 02/19/25 11:33 36.5 C 72 22 143/80 H 95 Room Air 02/19/25 07:39 36.9 C 80 21 145/93 H 94 Room Air 02/19/25 04:37 96 H 02/19/25 03:16 36.9 C 62 18 122/83 95 Room Air Laboratory Results 02/19/25 02/18/25 05:39 15:29 WBC 4.40 L RBC 3.93 L Hgb 12.7 L Hct 36.6 L MCV 93.1 MCH 32.3 MCHC 34.7 RDW Std Deviation 43.3 RDW Coeff of [place] 12.5 Plt Count 165 MPV 10.0 Sodium 138 Potassium 3.6 Chloride 102 Carbon Dioxide 30 Anion Gap 6 BUN 15 Creatinine 0.68 Est Cr Clr Drug Dosing 83.5 eGFR 91.09 BUN/Creatinine Ratio 22.1 H Glucose 83 Estimat Average Glucose 91 Hemoglobin A1c 4.8 Calcium 8.9 Phosphorus 3.2 Magnesium 1.9 Triglycerides 70 Cholesterol 162 LDL Cholesterol, Calc 70 VLDL Cholesterol, Calc 14 HDL Cholesterol 78 Cholesterol/HDL Ratio 2.1 Blood Type A Positive Antibody Screen NEGATIVE Diagnostic Findings Internal Auditory Canal MRI 02/18/25 16:11 Impression: 1. No appreciable vestibular schwannoma or other mass lesion 2. Cerebral atrophy and mild chronic small vessel ischemic disease 3. Chronic sinusitis Electronically signed by Twan Morales 02-18-2025 6:44 PM Head MRA 02/18/25 16:12 Impression: Unremarkable MRA of the brain Electronically signed by Twan Morales 02-18-2025 6:11 PM Head/Brain Mag Res Venography 02/18/25 16:12 Impression: No definite sign of dural sinus thrombosis Electronically signed by Twan Morales 02-18-2025 6:11 PM Neck MRA 02/18/25 16:12 Impression: Unremarkable MRA of the neck with no stenosis seen Electronically signed by Twan Morales 02-18-2025 6:[address] Angiogram Neck 02/18/2025: Impression: 1. No evidence of carotid stenosis 2. Bilateral 8 mm saccular aneurysms of the upper cervical internal carotid arteries at the C2 level. 3. Short segment dissection of the proximal right vertebral artery. 4. Short segment dissection/fenestration of the left vertebral artery at the C5 level. 5. Multilevel jynqbfcs-[id number]-pbcoxy artery narrowing due to arthritic changes within the cervical spine with uncinate spurring. CT Angiogram Head 02/18/2025 Impression: Unremarkable CTA of the head. Medications Administered Home Medications Medication Instructions Recorded Confirmed Last Taken albuterol sulfate 90 mcg/actuation 2 puff inhalation Q6H PRN Wheezing 07/29/18 02/18/25 Unknown aerosol inhaler (Ventolin HFA) famotidine 20 mg tablet (Pepcid) 20 mg PO BID 05/24/21 02/18/25 12/25/23 08:00 Vegan Vitamin 1 dose PO QAM 11/22/21 02/18/25 12/25/23 lisinopril 10 mg tablet 10 mg PO QAM 11/22/21 02/18/25 12/25/23 lorazepam 0.5 mg tablet (Ativan) 0.5 mg PO DAILY PRN Anxiety 11/22/21 02/18/25 12/03/21 potassium chloride 10 mEq 10 meq PO QAM 11/22/21 02/18/25 12/25/23 tablet,extended release hydrochlorothiazide 12.5 mg capsule 12.5 mg PO QAM 12/25/23 02/18/25 12/25/23 krill oil 500 mg capsule 500 mg PO QAM 12/25/23 02/18/25 12/25/23 aspirin 81 mg tablet,delayed 81 mg PO QAM #30 tabs 02/19/25 Unknown release atorvastatin 40 mg tablet 40 mg PO DAILY #30 tabs 02/19/25 Unknown clopidogrel 75 mg tablet 75 mg PO QAM #30 tabs 02/19/25 Unknown Active Medications Generic Name Dose Route Start Last Admin Trade Name Freq PRN Reason Stop Dose Admin Aspirin 81 mg 02/19/25 09:00 02/19/25 08:17 Aspirin 81 Mg Ectab PO 03/21/25 08:59 81 mg QAM NEETU Administration Clopidogrel Bisulfate 75 mg 02/19/25 09:00 02/19/25 08:17 Clopidogrel Bisulfate 75 Mg Tab PO 03/21/25 08:59 75 mg QAM NEETU Administration Famotidine 20 mg 02/18/25 21:00 02/19/25 08:17 Famotidine 20 Mg Tab PO 03/20/25 20:59 20 mg BID NEETU Administration Hydrochlorothiazide 12.5 mg 02/19/25 09:00 02/19/25 08:18 Hydrochlorothiazide 25 Mg Tab PO 03/21/25 08:59 12.5 mg QAM NEETU Administration Lisinopril 10 mg 02/19/25 09:00 02/19/25 08:18 Lisinopril 10 Mg Tab PO 03/21/25 08:59 10 mg QAM NEETU Administration Rosuvastatin Calcium 10 mg 02/19/25 09:00 02/19/25 08:17 Rosuvastatin Calcium 10 Mg Tab PO 03/21/25 08:59 10 mg QAM NEETU Administration
== END 2025-02-19 15:55 | disposition home or self-care (01) | DRG 91 ==
LOC: ED 13:18 → 2E 16:19 → SUATTDRO 16:19 → 2E 18:29